=== PATIENT | female | born 1975 | race Hispanic/Latino ===

== ENCOUNTER 2024-08-24 20:23 | Emergency (ER) | payer BC, SELFPAY ==
--- NOTE | ~2024-08-24 | XR_ITS ---
CHEST RADIOGRAPH, PA AND LATERAL CLINICAL HISTORY: cough WITH FEVER . COMPARISON: None available TECHNIQUE: PA and lateral views of the chest. FINDINGS Right internal jugular central venous power port catheter identified with its tip projecting over the cavoatrial junction. The remainder of the cardiomediastinal silhouette is otherwise unremarkable. The lungs are clear. Visualized osseous structures and soft tissues are unremarkable. IMPRESSION: No focal infiltrate or effusion. Reviewed, dictated and finalized at location A. ASSISTANT
--- OUTSIDE RECORDS SUMMARY | 2024-08-24 20:25 | XMS_ITS | Clinical Summary ---
Author Organization [facility] Address [address] [place] [address] Care Team Providers Care Steamtable Worker Name Role Phone Daljit Wiley MD Primary Care Provider [phone] Allergies No known active allergies Medications melatonin 5 mg tablet Take 2 tablets (10 mg total) by mouth nightly as needed 2 tablets Active dexAMETHasone (DECADRON) 4 mg tabletIndications :Malignant 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 in female, estrogen receptor negative (HCC),Prevention of chemotherapy-akil rashi neutropenia Take 2 tablets (8 mg) by mouth twice a day the day before and the day after DOCEtaxel. Then take 2 tablets (8 mg) by mouth once daily on days 3 and 4. 12 tablet 5 06/02/20 24 Active prochlorperazine (Compazine) 10 mg tabletIndications :Malignant 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 in female, estrogen receptor negative (HCC),Prevention of chemotherapy-akil rashi neutropenia Take 1 tablet (10 mg total) by mouth every 6 (six) hours as needed for nausea or vomiting Use first for nausea 60 tablet 3 06/02/20 24 Active ondansetron (ZOFRAN) 8 mg tabletIndications :Malignant 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 in female, estrogen receptor negative (HCC),Prevention of chemotherapy-akil rashi neutropenia Take 1 tablet (8 mg total) by mouth every 8 (eight) hours as needed for nausea or vomiting Use if prochlorperazine does not stop nausea 24 tablet 3 06/02/20 24 Active loratadine (CLARITIN) 10 mg tabletIndications :Bone pain due to G-CSF Take 1 tablet daily starting day of treatment, and for 7-10 days after treatment 30 tablet 1 06/02/20 24 Active lidocaine-priloca ine creamIndications: Encounter for care related to vascular access port,Encounter for antineoplastic chemotherapy Apply topically every 21 days Apply to port site and cover 1 hour prior to appointment for chemotherapy 30 g 2 06/02/20 24 2024 Active loperamide (IMODIUM) 2 mg capsuleIndication s:Chemotherapy induced diarrhea Take 2 capsules (4mg) by mouth with first onset diarrhea, 1 capsule (2mg) after each loose stool thereafter. Maximum of 8 capsules (16mg) per 24 hours. 60 capsule 1 06/02/20 Active cephalexin (KEFLEX) 250 mg capsule Take 1 capsule (250 mg total) by mouth 2 (two) times a day 10 capsule 06/08/20 24 Active acetaminophen (TYLENOL) 500 mg tablet Take 2 tablets (1,000 mg total) by mouth every 6 (six) hours as needed for pain 50 tablet 1 06/08/20 24 Active oxyCODONE (ROXICODONE) 5 mg immediate release tabletIndications :Pain Take 1 tablet (5 mg total) by mouth every 4 (four) hours as needed for pain 5 tablet 06/08/20 Active senna (SENOKOT) 8.6 mg tablet Take 1 tablet by mouth daily 30 tablet 06/08/20 24 2024 Active Active Problems Problem Noted Date Diagnosed Date Malignant neoplasm of upper- outer quadrant of right breast in female, estrogen receptor negative 05/10/2024 Cancer Staging:Clinical:Stage Unknown(cT2, cNX, cM0, G3, ER-, TX-, HER2+) - Unsigned Prevention of chemotherapy-induced neutropenia 0 09/22/2019 Fibrocystic breast changes of both breasts 08/18 History of abnormal mammogram 06/29/2018 Encounters Date Type Department Care Team Description 08/12/2024 12:00 PM STATISTICAL PROGRAMMER Infusion [facility] - Infusion [address] [facility] Floor 5 [place] [address] Prevention of chemotherapy-induced neutropenia (Primary Dx); Malignant 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 in female, estrogen receptor negative (HCC) 08/12/2024 11:00 AM STATISTICAL PROGRAMMER Office Visit [facility] [address] [place] [address] 8 [place] [address] Adama Adkins MD Prevention of chemotherapy-induced neutropenia (Primary Dx); Malignant 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 in female, estrogen receptor negative (HCC) 08/12/2024 10:00 AM STATISTICAL PROGRAMMER Clinical Support [facility] - Lab Collection [address] [place] [address] Floor 5 [place] [address] Malignant 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 in female, estrogen receptor negative (HCC); Prevention of chemotherapy-induced neutropenia 07/22/2024 1:30 PM STATISTICAL PROGRAMMER Infusion [facility] - Infusion [address] [place] [address] Floor 5 [place] [address] Prevention of chemotherapy-induced neutropenia (Primary Dx); Malignant 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 in female, estrogen receptor negative (HCC) 07/22/2024 11:45 AM STATISTICAL PROGRAMMER Office Visit [facility] [address] [place] [phone] Adama Adkins MD Encounter for monitoring cardiotoxic drug therapy (Primary Dx); Malignant 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 in female, estrogen receptor negative (HCC); Prevention of chemotherapy-induced neutropenia 07/22/2024 10:45 AM STATISTICAL PROGRAMMER Clinical Support [facility] - Lab Collection [address] [place] [address] 5 [place] [address] Malignant 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 in female, estrogen receptor negative (HCC); Prevention of chemotherapy-induced neutropenia 07/01/2024 10:30 AM STATISTICAL PROGRAMMER Infusion [facility] - Infusion [address] [place] [address] Floor 6 [place] [address] Prevention of chemotherapy-induced neutropenia (Primary Dx); Malignant 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 in female, estrogen receptor negative (HCC) 07/01/2024 9:30 AM STATISTICAL PROGRAMMER Office Visit [facility] [address] [place] [address] Floor 8 [place] [address] Deni Licona PA Prevention of chemotherapy-induced neutropenia (Primary Dx); Malignant 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 in female, estrogen receptor negative (HCC) 07/01/2024 8:45 AM STATISTICAL PROGRAMMER Clinical Support [facility] - Lab Collection [facility] Floor 6 [place] [address] Malignant 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 in female, estrogen receptor negative (HCC); Prevention of chemotherapy-induced neutropenia 06/22/2024 8:00 AM STATISTICAL PROGRAMMER Office Visit [facility] [address] [place] [address] 6th [place] [address] [place] [address] Connie Hayes MD Malignant 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 in female, estrogen receptor negative (HCC) 06/15/2024 Telephone [facility] [address] [place] [address] Floor 8 [place] [phone] Allyssa Neumann RN 06/10/2024 10:00 AM STATISTICAL PROGRAMMER Infusion [facility] - Infusion [address] [place] [address] Floor 6 [place] [address] Prevention of chemotherapy-induced neutropenia (Primary Dx); Malignant 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 in female, estrogen receptor negative (HCC) 06/10/2024 8:45 AM STATISTICAL PROGRAMMER Office Visit [facility] [address] [place] [address] Floor 8 [place] [address] Adama Adkins MD Malignant 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 in female, estrogen receptor negative (HCC) (Primary Dx); Prevention of chemotherapy-induced neutropenia 06/10/2024 8:15 AM STATISTICAL PROGRAMMER Clinical Support [facility] - Lab Collection [facility] Floor 5 [place] [address] Malignant 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 in female, estrogen receptor negative (HCC) 06/10/2024 7:45 AM STATISTICAL PROGRAMMER Clinical Support [facility] [address] [place] [address] Floor 5 [place] [address] Malignant 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 in female, estrogen receptor negative (HCC); Prevention of chemotherapy-induced neutropenia 06/10/2024 Orders Only [facility] [address] [place] [address] Floor 8 [place] [address] Adama Adkins MD Malignant 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 in female, estrogen receptor negative (HCC) (Primary Dx) 06/08/2024 9:07 AM STATISTICAL PROGRAMMER - 06/08/2024 11:59 PM STATISTICAL PROGRAMMER Hospital Encounter [facility] ([facility]) [address] [place] [address] Malignant 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 in female, estrogen receptor negative (HCC) Discharge Disposition: Discharge to home or self care 06/08/2024 7:30 AM STATISTICAL PROGRAMMER - 06/08/2024 8:45 AM STATISTICAL PROGRAMMER Surgery [facility] ([facility]) [address] [place] [phone] AftKendal MD PhD INSERTION PORT A CATH 06/08/2024 7:30 AM STATISTICAL PROGRAMMER Anesthesia Event [facility] ([facility]) [address] [place] [address] Jorge Thompson MD Dolnick, Karen Leigh, NP 06/08/2024 5:32 AM STATISTICAL PROGRAMMER - 06/08/2024 9:57 AM STATISTICAL PROGRAMMER Hospital Encounter [facility] ([facility]) [address] [place] [address] Chatot, Kendal Martinez MD PhD Malignant 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 in female, estrogen receptor negative (HCC) (Primary Dx) Discharge Disposition: Discharge to home or self care 06/04/2024 12:30 PM STATISTICAL PROGRAMMER Lab [facility] ([facility]) [address] [place] [phone] Malignant 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 in female, estrogen receptor negative (HCC); Prevention of chemotherapy-induced neutropenia 06/04/2024 10:56 AM STATISTICAL PROGRAMMER - 06/04/2024 11:59 PM STATISTICAL PROGRAMMER Hospital Encounter [facility] ([facility]) [address] [place] [address] Malignant 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 in female, estrogen receptor negative (HCC) Discharge Disposition: Discharge to home or self care 06/04/2024 10:56 AM STATISTICAL PROGRAMMER - 06/04/2024 11:59 PM STATISTICAL PROGRAMMER Hospital Encounter [facility] ([facility]) [address] [place] [address] Discharge Disposition: Discharge to home or self care 06/04/2024 10:56 AM STATISTICAL PROGRAMMER - 06/04/2024 11:59 PM STATISTICAL PROGRAMMER Hospital Encounter [facility] ([facility]) [address] [place] [address] Malignant 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 in female, estrogen receptor negative (HCC) Discharge Disposition: Discharge to home or self care 06/02/2024 Orders Only [facility] [address] [place] [phone] Adama Adkins MD Malignant 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 in female, estrogen receptor negative (HCC) (Primary Dx); Prevention of chemotherapy-induced neutropenia; Bone pain due to G-CSF; Chemotherapy induced diarrhea; Encounter for care related to vascular access port; Encounter for antineoplastic chemotherapy 05/28/2024 Orders Only [facility] [address] [place] [address] Adama Adkins MD 05/27/2024 Telephone [facility] [address] [place] [address] Steffanie Rodriguez RN GI Preprocedure 05/25/2024 Orders Only [facility] [address] [place] [phone] Kendal Malhotra MD PhD Malignant 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 in female, estrogen receptor negative (HCC) (Primary Dx) 05/24/2024 Telephone [facility] [address] [phone] Allyssa Neumann, EBLLE 05/24/2024 Telephone [facility] [address] [place] [phone] Kendal Malhotra MD PhD from Last 3 Months Immunizations Name Administration Dates Next Due Tdap 10/12/2017 Surgical History Surgery Date Site/Laterality Comments BREAST BIOPSY 05/03/2024 Right HYSTERECTOMY 07/21/2012 - 07/20/2013 BREAST BIOPSY 07/21/2015 - 07/20/2016 Right x2, lesion removal Family History Medical History Relation Name Comments Pancreatic cancer Father Pancreatitis Father Family history of pancreatitis - (Added by TW Conv) Lung cancer Father's Sister Brain cancer Maternal Grandmother Breast cancer Maternal Grandmother Breast cancer Mother Breast cancer Other cousin Lung cancer Paternal Grandmother Anesthesia problems Neg Hx Relation Name Status Comments Father Father's Sister Maternal Grandmother Mother Other cousin Paternal Grandmother Social History Tobacco Use Types Packs/Day Years Used Date Smoking Tobacco: Never Passive Smoke Exposure: Past Smokeless Tobacco: Never Tobacco Cessation:Counseling Given: Not Answered Alcohol Use Standard Drinks/Week Comments Yes 0 (1 standard drink = 0.6 oz pur e alcohol) socially AUDIT-C Answer Date Recorded Q1: How often do you have a drink containing alc ohol? 2-4 times a month 06/08/2024 Q2: How many drinks containi ng alcohol do you have on a typical day when you are drinking? 1 or 2 06/08/2024 Q3: How often do you have si x or more drinks on one occasion? Never 06/08/2024 Personal Safety Answer Date Recorded Have you ever been in or are you currently in a harmful physical or emotional relationship or is someone making you feel afraid or unsafe? Denies 06/08/2024 Comments No Sex and Gender Information Value Date Recorded Sex Assigned at Not on file Legal Sex Female 5:54 AM STATISTICAL PROGRAMMER Gender Identity Not on file Sexual Orientation Not on file Obstetrics History Last Filed Vital Signs Vital Sign Reading Time Taken Comments Blood Pressure 119/82 08/12/2024 11:05 AM STATISTICAL PROGRAMMER Pulse 74 08/12/2024 11:05 AM STATISTICAL PROGRAMMER Temperature 36.2 ??C (97.2 ??F) 08/12/2024 11:[address] Respiratory Rate 18 08/12/2024 11:05 AM STATISTICAL PROGRAMMER Oxygen Saturation 97% 08/12/2024 11:05 AM STATISTICAL PROGRAMMER Inhaled Oxygen Concentration - - Weight 124.3 kg (274 lb) 08/12/2024 11:05 AM STATISTICAL PROGRAMMER Height 177.8 cm (5' 10 ) 08/12/2024 11:05 AM STATISTICAL PROGRAMMER Body Mass Index 39.31 08/12/2024 11:05 AM STATISTICAL PROGRAMMER Plan of Treatment Health Maintenance Due Date Last Done Comments Colon Cancer Screening-Colonoscopy 1974 Depression Screening 1974 Hepatitis C Screening 1974 Hepatitis B Screening 1992 Regular Well Visit/Exam 18-64 1992 Influenza Vaccine (#1) 2024 Breast Cancer Screening-Mammogram 04/22/2025 04/22/2024, 03/07/2023, 09/21/2019, Additional history exists DTaP/Tdap/Td Vaccine (2 - Td or Tdap) 10/13/2027 10/12/2017 Pneumococcal vaccine <65 Aged Out No longer eligible based on patient's age to complete this topic Medical Devices Implanted Type Area Office Machine Inspector Device Identifier Shelf Expiration Date Model / Serial / Lot [employer] Eviva 13cm Identifier Biopsy Site Yikgv-Lecto-[id number] - [id number] Implanted:Qty: 1 on 05/03/2024 at [facility] [employer] [id number] 01/12/2025 [facility] / / [id number] Treat[employer] Peripheral Vascular Powerport Clearvue Airguard 8fr 1 Lumen Lightweight Intermediate Latex Free [id number] - [id number] - [id number] Implanted:Qty: 1 on 06/08/2024 by Aft, Kendal Martinez MD PhD at [facility] [employer] [id number] 06/19/2025 [id number] / [id number] / [id number] Procedures Procedure Name Priority Date/Time Associated Diagnosis Comments EGFR STAT 08/12/2024 10:35 AM STATISTICAL PROGRAMMER Malignant 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 in female, estrogen receptor negative (HCC) Prevention of chemotherapy-induc ed neutropenia DIFFERENTIAL AUTO STAT 08/12/2024 10: 35 AM STATISTICAL PROGRAMMER Malignant 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 in female, estrogen receptor negative (HCC) Prevention of chemotherapy-induc ed neutropenia CBC WITH AUTO DIFFERENTIAL STAT 08/12/2024 10:35 AM STATISTICAL PROGRAMMER Malignant 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 in female, estrogen receptor negative (HCC) Prevention of chemotherapy-induc ed neutropenia COMPREHENSIVE METABOLIC PANEL STAT 08/12/2024 10:35 AM STATISTICAL PROGRAMMER Malignant 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 in female, estrogen receptor negative (HCC) Prevention of chemotherapy-induc ed neutropenia EGFR STAT 07/22/2024 11:11 AM STATISTICAL PROGRAMMER Malignant 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 in female, estrogen receptor negative (HCC) Prevention of chemotherapy-induc ed neutropenia DIFFERENTIAL AUTO STAT 07/22/2024 11: 11 AM STATISTICAL PROGRAMMER Malignant 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 in female, estrogen receptor negative (HCC) Prevention of chemotherapy-induc ed neutropenia CBC WITH AUTO DIFFERENTIAL STAT 07/22/2024 11:11 AM STATISTICAL PROGRAMMER Malignant 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 in female, estrogen receptor negative (HCC) Prevention of chemotherapy-induc ed neutropenia COMPREHENSIVE METABOLIC PANEL STAT 07/22/2024 11:11 AM STATISTICAL PROGRAMMER Malignant 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 in female, estrogen receptor negative (HCC) Prevention of chemotherapy-induc ed neutropenia EGFR STAT 07/01/2024 9:10 AM STATISTICAL PROGRAMMER Malignant 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 in female, estrogen receptor negative (HCC) Prevention of chemotherapy-induc ed neutropenia DIFFERENTIAL AUTO STAT 07/01/2024 9:1 0 AM STATISTICAL PROGRAMMER Malignant 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 in female, estrogen receptor negative (HCC) Prevention of chemotherapy-induc ed neutropenia CBC WITH AUTO DIFFERENTIAL STAT 07/01/2024 9:10 AM STATISTICAL PROGRAMMER Malignant 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 in female, estrogen receptor negative (HCC) Prevention of chemotherapy-induc ed neutropenia COMPREHENSIVE METABOLIC PANEL STAT 07/01/2024 9:10 AM STATISTICAL PROGRAMMER Malignant 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 in female, estrogen receptor negative (HCC) Prevention of chemotherapy-induc ed neutropenia EGFR Routine 06/10/2024 8:33 AM STATISTICAL PROGRAMMER Malignant 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 in female, estrogen receptor negative (HCC) DIFFERENTIAL AUTO Routine 06/10/2024 8:3 3 AM STATISTICAL PROGRAMMER Malignant 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 in female, estrogen receptor negative (HCC) CBC WITH AUTO DIFFERENTIAL Routine 06/10/2024 8:33 AM STATISTICAL PROGRAMMER Malignant 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 in female, estrogen receptor negative (HCC) COMPREHENSIVE METABOLIC PANEL Routine 06/10/2024 8:33 AM STATISTICAL PROGRAMMER Malignant 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 in female, estrogen receptor negative (HCC) XR CHEST 1 VIEW Schedule Routine, Read Routine (OP Routine) 06/08/2024 9:28 AM STATISTICAL PROGRAMMER Malignant 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 in female, estrogen receptor negative (HCC) FL FLUOROSCOPY < 1 HOUR IP Routine 06/08/2024 8:40 AM STATISTICAL PROGRAMMER PERIPHERAL LINE Routine 06/08/2024 7:54 AM STATISTICAL PROGRAMMER ANESTHESIA INTUBATION Routine 06/08/2024 7:53 AM STATISTICAL PROGRAMMER INSERTION PORT A CATH 06/08/2024 7:30 AM STATISTICAL PROGRAMMER Malignant 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 in female, estrogen receptor negative (HCC) NM BONE IMAGING WHOLE BODY Schedule Routine, Read Routine (OP Routine) 06/04/2024 2:21 PM STATISTICAL PROGRAMMER Malignant 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 in female, estrogen receptor negative (HCC) CT CHEST ABDOMEN PELVIS W CONTRAST Schedule Routine, Read Routine (OP Routine) 06/04/2024 12:26 PM STATISTICAL PROGRAMMER Malignant 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 in female, estrogen receptor negative (HCC) EGFR STAT 06/04/2024 11:03 AM STATISTICAL PROGRAMMER Malignant 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 in female, estrogen receptor negative (HCC) Prevention of chemotherapy-induc ed neutropenia DIFFERENTIAL AUTO STAT 06/04/2024 11: 03 AM STATISTICAL PROGRAMMER Malignant 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 in female, estrogen receptor negative (HCC) Prevention of chemotherapy-induc ed neutropenia CBC WITH AUTO DIFFERENTIAL STAT 06/04/2024 11:03 AM STATISTICAL PROGRAMMER Malignant 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 in female, estrogen receptor negative (HCC) Prevention of chemotherapy-induc ed neutropenia COMPREHENSIVE METABOLIC PANEL STAT 06/04/2024 11:03 AM STATISTICAL PROGRAMMER Malignant 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 in female, estrogen receptor negative (HCC) Prevention of chemotherapy-induc ed neutropenia SCREENING MAMMOGRAM BILATERAL W DANNIE Schedule Routine, Read Routine (OP Routine) 04/22/2024 3:57 PM CDT History of abnormal mammogram Family history of breast cancer Increased risk of breast cancer Dense breast tissue from Last 3 Months or Most Recently Relevant to Health Maintenance Results * eGFR (08/12/2024 10:35 AM STATISTICAL PROGRAMMER) eGFR >90 >=60 mL/min/1. 73 m2 Comment: Interpretive Data Reference Interval Normal ?>/= 90 mL/min/1.73m2 Mildly decreased* ? 60 - 89 mL/min/1.73m2 Mildly to moderately decreased ?45 - 59 mL/min/1.73m2 Moderately to severely decreased ??30 - 44 mL/min/1.73m2 Severely decreased ?15 - 29 mL/min/1.73m2 Kidney Failure ?< 15 ??mL/min/1.73m2 *Relative to young adult level Estimated glomerular filtration rate is determined by the 2020 CKD-EPI equation recommended by the National Kidney Foundation (A Unifying Approach to GFR Estimation: Recommendations of the NKF-ASK Task Force on Reassessing the Inclusion of Race in Diagnosing Kidney Disease, JASN 202). The CKD-EPI equation should not be used for patients with unstable renal function and has not been validated in children and those over 70. Current interpretive data was last reviewed 2021. Blood 08/12/2024 10:3 5 AM STATISTICAL PROGRAMMER 08/12/2024 10:49 AM STATISTICAL PROGRAMMER Adama Adkins MD LAB BLOOD ORDERABLES Final Resul t [facility] Department [place] [address] * (ABNORMAL) Differential, auto (08/12/2024 10:35 AM STATISTICAL PROGRAMMER) Neutrophil abs 12.6(H) 1.5 - 6.5 K/cumm Comment:Testing performed by : [facility], [address] [place] [phone] Lymphocyte abs 1.7 0.8 - 3.3 K/cumm [facility] Comment:Testing performed by : [facility], [address] [place] [phone] Monocyte abs 1.6(H) 0.2 - 0.8 K/cumm [facility] Comment:Testing performed by : [facility], [address] [place] [phone] Eosinophil abs 0.0 0.0 - 0.5 K/cumm [facility] Comment:Testing performed by : [facility], [address] [place] [phone] Basophil abs 0.0 0.0 - 0.1 K/cumm [facility] Comment:Testing performed by : [facility], [address] [place] [phone] Neutrophil pct 79.2 % [facility] Comment: Interpretive Data Percent cell count reference ranges are not reported, since discordance with absolute values may lead to misinterpretation of CBC data. Current Interpretive Data was last revised on 2017. Testing performed by: [facility], [address] [place] [phone] Lymphocyte pct 10.5 % [facility] Comment: Interpretive Data Percent cell count reference ranges are not reported, since discordance with absolute values may lead to misinterpretation of CBC data. Current Interpretive Data was last revised on 2017. Testing performed by: [facility], [address] [place] [phone] Monocyte pct 10.2 % [facility] Comment: Interpretive Data Percent cell count reference ranges are not reported, since discordance with absolute values may lead to misinterpretation of CBC data. Current Interpretive Data was last revised on 2017. Testing performed by: [facility], [address] [place] [phone] Eosinophil pct 0.0 % CERANGELA OLEA Comment: Interpretive Data Percent cell count reference ranges are not reported, since discordance with absolute values may lead to misinterpretation of CBC data. Current Interpretive Data was last revised on 2017. Testing performed by: [facility], [address] [place] [phone] Basophil pct 0.1 % CERANGELA OLEA Comment: Interpretive Data Percent cell count reference ranges are not reported, since discordance with absolute values may lead to misinterpretation of CBC data. Current Interpretive Data was last revised on 2017. Testing performed by: [facility], [address] [place] [phone] Blood 08/12/2024 10:3 5 AM STATISTICAL PROGRAMMER 08/12/2024 10:50 AM STATISTICAL PROGRAMMER us Adamakian Adkins MD LAB BLOOD ORDERABLES Final Resul t AL[facility] ROSA DELACRUZ [facility] Department [place] [address] * (ABNORMAL) CBC with auto differential (08/12/2024 10:35 AM STATISTICAL PROGRAMMER) WBC 15.9(H) 3.8 - 9.9 K/cumm Comment:Testing performed by : [facility], [address] [place] [address] Hgb 11.1(L) 11.9 - 15.5 g/dL CERNER BJ Comment:Testing performed by : [facility], [address] [place] [address] Hct 32.8(L) 35.6 - 45.5 % CERNER BJ Comment:Testing performed by : [facility], [address] [place] [address] Plt 394 150 - 400 K/cumm CERNER BJ Comment:Testing performed by : [facility], [address] [place] [address] MPV 7.3 6.8 - 10.4 fL CERNER BJ Comment:Testing performed by : [facility], [address] [place] [address] RBC 3.35(L) 3.90 - 5.20 M/cumm CERNER BJ Comment:Testing performed by : [facility], [address] [place] [address] MCV 98.0(H) 81.3 - 96.4 fL CERNER BJ Comment:Testing performed by : [facility], [address] [place] [address] MCH 33.0 27.1 - 33.3 pg CERNER BJ Comment:Testing performed by : [facility], [address] [place] [address] MCHC 33.7 32.3 - 35.7 g/dL CERNER BJ Comment:Testing performed by : [facility], [address] [place] [address] RDW CV 18.1(H) 11.1 - 14.9 % CERNER BJ Comment:Testing performed by : [facility], [address] [place] [address] NRBC abs 0.00 0.00 - 0.01 K/cumm CERNER BJ Comment:Testing performed by : [facility], [address] [place] [address] Blood 08/12/2024 10:3 5 AM STATISTICAL PROGRAMMER 08/12/2024 10:50 AM STATISTICAL PROGRAMMER us Adama Adkins MD LAB BLOOD ORDERABLES Final Resul t [facility] Department [place] [address] * (ABNORMAL) Comprehensive metabolic panel (08/12/2024 10:35 AM STATISTICAL PROGRAMMER) Pathologist [facility] Sodium 141 135 - 145 mmol/L Potassium, pl 4.1 3.3 - 4.9 mmol/L [facility] Chloride 106 97 - 110 mmol/L [facility] CO2 27 22 - 32 mmol/L [facility] Anion gap 8 2 - 15 mmol/L [facility] BUN 13 6 - 25 mg/dL [facility] Creatinine 0.67 0.60 - 1.10 mg/dL [facility] Glucose 108 70 - 199 mg/dL [facility] Comment: Interpretive Data Fasting glucose >/= 126 mg/dl is diagnostic for diabetes. ?? Fasting is defined as no caloric intake for at least 8 hours. Fasting glucose between 100 mg/dl to 125 mg/dl is diagnostic of prediabetes. In a patient with classic symptoms of hyperglycemia or hyperglycemic crisis, a random glucose >/= 200 mg/dl is diagnostic for diabetes. In the absence of unequivocal hyperglycemia, results should be confirmed by repeat testing. The classification and Diagnosis of Diabetes Diabetes Care 2021; 46: S19-S40. Current interpretive data was last revised 2022. Calcium 9.5 8.5 - 10.3 mg/dL [facility] Bilirubin, total <0.2 0.1 - 1.2 mg/dL [facility] Protein, pl 7.2 6.5 - 8.5 g/dL [facility] Albumin 4.0 3.5 - 5.0 g/dL [facility] Alk phos 101 40 - 130 Units/L [facility] ALT 53(H) 7 - 45 Units/L [facility] AST 37 10 - 45 Units/L [facility] Blood 08/12/2024 10:3 5 AM STATISTICAL PROGRAMMER 08/12/2024 10:49 AM STATISTICAL PROGRAMMER us Adama Adkins MD LAB BLOOD ORDERABLES Final Resul t Performing Organization Address [facility] de Phone Number ALMA ROSA OLEAMid [facility] Department [place] [address] * eGFR (07/22/2024 11:11 AM STATISTICAL PROGRAMMER) eGFR >90 >=60 mL/min/1. 73 m2 Comment: Interpretive Data Reference Interval Normal ?>/= 90 mL/min/1.73m2 Mildly decreased* ? 60 - 89 mL/min/1.73m2 Mildly to moderately decreased ?45 - 59 mL/min/1.73m2 Moderately to severely decreased ??30 - 44 mL/min/1.73m2 Severely decreased ?15 - 29 mL/min/1.73m2 Kidney Failure ?< 15 ??mL/min/1.73m2 *Relative to young adult level Estimated glomerular filtration rate is determined by the 2020 CKD-EPI equation recommended by the National Kidney Foundation (A Unifying Approach to GFR Estimation: Recommendations of the NKF-ASK Task Force on Reassessing the Inclusion of Race in Diagnosing Kidney Disease, JASN 2020). The CKD-EPI equation should not be used for patients with unstable renal function and has not been validated in children and those over 70. Current interpretive data was last reviewed 2021. Blood 07/22/2024 11:1 1 AM STATISTICAL PROGRAMMER 07/22/2024 11:14 AM STATISTICAL PROGRAMMER us Deni RADFORD LAB BLOOD ORDERABLES Final Result Performing Organization Address [facility] de Phone Number ALMA ROSA OLEAMid [facility] Department [place] [address] * (ABNORMAL) Differential, auto (07/22/2024 11:11 AM STATISTICAL PROGRAMMER) Neutrophil abs 12.9(H) 1.5 - 6.5 K/cumm Comment:Testing performed by : [facility], [address] [place] [phone] Lymphocyte abs 1.0 0.8 - 3.3 K/cumm [facility]ER [facility] Comment:Testing performed by : [facility], [address] [place], [place] [phone] Monocyte abs 0.7 0.2 - 0.8 K/cumm [facility]ER [facility] Comment:Testing performed by : [facility], [address] [place], [place] [phone] Eosinophil abs 0.0 0.0 - 0.5 K/cumm [facility] Comment:Testing performed by : [facility], [address] [place] [phone] Basophil abs 0.0 0.0 - 0.1 K/cumm [facility] Comment:Testing performed by : [facility], [address] [place] [phone] Neutrophil pct 88.1 % [facility]ER [facility] Comment: Interpretive Data Percent cell count reference ranges are not reported, since discordance with absolute values may lead to misinterpretation of CBC data. Current Interpretive Data was last revised on 2017. Testing performed by: [facility], [address] [place] [phone] Lymphocyte pct 6.7 % [facility] Comment: Interpretive Data Percent cell count reference ranges are not reported, since discordance with absolute values may lead to misinterpretation of CBC data. Current Interpretive Data was last revised on 2017. Testing performed by: [facility], [address] [place] [phone] Monocyte pct 4.9 % [facility] Comment: Interpretive Data Percent cell count reference ranges are not reported, since discordance with absolute values may lead to misinterpretation of CBC data. Current Interpretive Data was last revised on 2017. Testing performed by: [facility], [address] [place] [phone] Eosinophil pct 0.0 % ALMA ROSA OLEA Comment: Interpretive Data Percent cell count reference ranges are not reported, since discordance with absolute values may lead to misinterpretation of CBC data. Current Interpretive Data was last revised on 2017. Testing performed by: [facility], [address] [place], [place] [phone] Basophil pct 0.3 % ALMA ROSA OLEA Comment: Interpretive Data Percent cell count reference ranges are not reported, since discordance with absolute values may lead to misinterpretation of CBC data. Current Interpretive Data was last revised on 2017. Testing performed by: [facility], [address] [place], [place] [phone] Blood 07/22/2024 11:1 1 AM STATISTICAL PROGRAMMER 07/22/2024 11:12 AM STATISTICAL PROGRAMMER us Deni RADFORD LAB BLOOD ORDERABLES Final Result [facility] Department [place] [address] * (ABNORMAL) CBC with auto differential (07/22/2024 11:11 AM STATISTICAL PROGRAMMER) WBC 14.6(H) 3.8 - 9.9 K/cumm Comment:Testing performed by : [facility], [address] [place] [phone] Hgb 12.1 11.9 - 15.5 g/dL ALMA ROSA OLEA Comment:Testing performed by : [facility], [address] [place] [address] Hct 35.8 35.6 - 45.5 % ALMA ROSA OLEA Comment:Testing performed by : [facility], [address] [place] [address] Plt 413(H) 150 - 400 K/cumm ALMA ROSA OLEA Comment:Testing performed by : [facility], [address] [place] [address] MPV 7.2 6.8 - 10.4 fL ALMA ROSA OLEA Comment:Testing performed by : [facility], [address] [place] [address] RBC 3.76(L) 3.90 - 5.20 M/cumm CERANGELA OLEA Comment:Testing performed by : [facility], [address] [place], [place] [phone] MCV 95.3 81.3 - 96.4 fL ALMA ROSA OLEA Comment:Testing performed by : [facility], [address] [place] [address] MCH 32.3 27.1 - 33.3 pg ALMA ROSA OLEA Comment:Testing performed by : [facility], [address] [place], [place] [phone] MCHC 33.9 32.3 - 35.7 g/dL ALMA ROSA OLEA Comment:Testing performed by : [facility], [address] [place] [address] RDW CV 15.1(H) 11.1 - 14.9 % [facility] Comment:Testing performed by : [facility], [address] [place] [address] NRBC abs 0.00 0.00 - 0.01 K/cumm [facility] ROSA [facility] Comment:Testing performed by : [facility], [address] [place] [address] Blood 07/22/2024 11:1 1 AM STATISTICAL PROGRAMMER 07/22/2024 11:12 AM STATISTICAL PROGRAMMER us Deni RADFORD LAB BLOOD ORDERABLES Final Result AL[facility] ROSA OLEA [facility] Department [place] [address] * (ABNORMAL) Comprehensive metabolic panel (07/22/2024 11:11 AM STATISTICAL PROGRAMMER) Sodium 138 135 - 145 mmol/L Potassium, pl 4.0 3.3 - 4.9 mmol/L [facility] Chloride 104 97 - 110 mmol/L [facility] CO2 27 22 - 32 mmol/L [facility] Anion gap 7 2 - 15 mmol/L [facility] BUN 10 6 - 25 mg/dL [facility] Creatinine 0.64 0.60 - 1.10 mg/dL [facility] Glucose 138 70 - 199 mg/dL [facility] Comment: Interpretive Data Fasting glucose >/= 126 mg/dl is diagnostic for diabetes. ?? Fasting is defined as no caloric intake for at least 8 hours. Fasting glucose between 100 mg/dl to 125 mg/dl is diagnostic of prediabetes. In a patient with classic symptoms of hyperglycemia or hyperglycemic crisis, a random glucose >/= 200 mg/dl is diagnostic for diabetes. In the absence of unequivocal hyperglycemia, results should be confirmed by repeat testing. The classification and Diagnosis of Diabetes Diabetes Care 2021; 46: S19-S40. Current interpretive data was last revised 2022. Calcium 9.6 8.5 - 10.3 mg/dL [facility] Bilirubin, total 0.2 0.1 - 1.2 mg/dL [facility] Protein, pl 7.3 6.5 - 8.5 g/dL [facility] Albumin 4.0 3.5 - 5.0 g/dL [facility] Alk phos 100 40 - 130 Units/L [facility] ALT 60(H) 7 - 45 Units/L [facility] AST 31 10 - 45 Units/L [facility] Blood 07/22/2024 11:1 1 AM STATISTICAL PROGRAMMER 07/22/2024 11:14 AM STATISTICAL PROGRAMMER us Deni RADFORD LAB BLOOD ORDERABLES Final Result [facility] Department [place] [address] * eGFR (07/01/2024 9:10 AM STATISTICAL PROGRAMMER) eGFR >90 >=60 mL/min/1. 73 m2 Comment: Interpretive Data Reference Interval Normal ?>/= 90 mL/min/1.73m2 Mildly decreased* ? 60 - 89 mL/min/1.73m2 Mildly to moderately decreased ?45 - 59 mL/min/1.73m2 Moderately to severely decreased ??30 - 44 mL/min/1.73m2 Severely decreased ?15 - 29 mL/min/1.73m2 Kidney Failure ?< 15 ??mL/min/1.73m2 *Relative to young adult level Estimated glomerular filtration rate is determined by the 2020 CKD-EPI equation recommended by the National Kidney Foundation (A Unifying Approach to GFR Estimation: Recommendations of the NKF-ASK Task Force on Reassessing the Inclusion of Race in Diagnosing Kidney Disease, JASN 2020). The CKD-EPI equation should not be used for patients with unstable renal function and has not been validated in children and those over 70. Current interpretive data was last reviewed 2021. Blood 07/01/2024 9:10 AM STATISTICAL PROGRAMMER 07/01/2024 9:30 AM STATISTICAL PROGRAMMER us Adama Adkins MD LAB BLOOD ORDERABLES Final Resul t [facility] Department [place] [address] * (ABNORMAL) Differential, auto (07/01/2024 9:10 AM STATISTICAL PROGRAMMER) Neutrophil abs 13.0(H) 1.5 - 6.5 K/cumm Comment:Testing performed by : [facility], [facility] [place] [phone] Lymphocyte abs 1.5 0.8 - 3.3 K/cumm ALMA ROSA DELACRUZ Comment:Testing performed by : [facility], [facility] [place] [address] Monocyte abs 1.2(H) 0.2 - 0.8 K/cumm [facility]ER [facility] Comment:Testing performed by : [facility], [address] [place] [phone] Eosinophil abs 0.0 0.0 - 0.5 K/cumm [facility]ER [facility] Comment:Testing performed by : [facility], [address] [place] [phone] Basophil abs 0.0 0.0 - 0.1 K/cumm [facility]ER [facility] Comment:Testing performed by : [facility], [address] [place] [phone] Neutrophil pct 82.8 % [facility] Comment: Interpretive Data Percent cell count reference ranges are not reported, since discordance with absolute values may lead to misinterpretation of CBC data. Current Interpretive Data was last revised on 2017. Testing performed by: [facility], [address] [place] [phone] Lymphocyte pct 9.6 % [facility]ER [facility] Comment: Interpretive Data Percent cell count reference ranges are not reported, since discordance with absolute values may lead to misinterpretation of CBC data. Current Interpretive Data was last revised on 2017. Testing performed by: [facility], [address] [place] [phone] Monocyte pct 7.4 % [facility]ER [facility] Comment: Interpretive Data Percent cell count reference ranges are not reported, since discordance with absolute values may lead to misinterpretation of CBC data. Current Interpretive Data was last revised on 2017. Testing performed by: [facility], [address] [place] [phone] Eosinophil pct 0.0 % [facility] Comment: Interpretive Data Percent cell count reference ranges are not reported, since discordance with absolute values may lead to misinterpretation of CBC data. Current Interpretive Data was last revised on 2017. Testing performed by: [facility], [address] [place] [phone] Basophil pct 0.2 % [facility] Comment: Interpretive Data Percent cell count reference ranges are not reported, since discordance with absolute values may lead to misinterpretation of CBC data. Current Interpretive Data was last revised on 2017. Testing performed by: [facility], [address] [place] [address] Blood 07/01/2024 9:10 AM STATISTICAL PROGRAMMER 07/01/2024 9:31 AM STATISTICAL PROGRAMMER us Adamakian Adkins MD LAB BLOOD ORDERABLES Final Resul t [facility] Department [place] [address] * (ABNORMAL) CBC with auto differential (07/01/2024 9:10 AM STATISTICAL PROGRAMMER) WBC 15.7(H) 3.8 - 9.9 K/cumm Comment:Testing performed by : [facility], [address] [place] [address] Hgb 12.6 11.9 - 15.5 g/dL [facility] Comment:Testing performed by : [facility], [address] [place] [address] Hct 38.5 35.6 - 45.5 % ALMA ROSA OLEA Comment:Testing performed by : [facility], [address] [place] [address] Plt 379 150 - 400 K/cumm [facility] ROS[facility] Comment:Testing performed by : [facility], [address] [place] [address] MPV 7.8 6.8 - 10.4 fL [facility] Comment:Testing performed by : [facility], [address] [place] [address] RBC 4.09 3.90 - 5.20 M/cumm ALMA ROSA OLEA Comment:Testing performed by : [facility], [address] [place] [address] MCV 94.1 81.3 - 96.4 fL CERANGELA BJ Comment:Testing performed by : [facility], [address] [place] [phone] MCH 30.9 27.1 - 33.3 pg [facility] Comment:Testing performed by : [facility], [address] [place] [phone] MCHC 32.8 32.3 - 35.7 g/dL [facility] Comment:Testing performed by : [facility], [address] [place] [phone] RDW CV 13.2 11.1 - 14.9 % [facility] ROS[facility] Comment:Testing performed by : [facility], [address] [place] [phone] NRBC abs 0.00 0.00 - 0.01 K/cumm [facility] ROS[facility] Comment:Testing performed by : [facility], [address] [place] [phone] Blood 07/01/2024 9:10 AM STATISTICAL PROGRAMMER 07/01/2024 9:31 AM STATISTICAL PROGRAMMER us Adama Fa'christiano BRYANT LAB BLOOD ORDERABLES Final Resul t [facility] Department [place] [address] * Comprehensive metabolic panel (07/01/2024 9:10 AM STATISTICAL PROGRAMMER) Sodium 142 135 - 145 mmol/L Potassium, pl 3.9 3.3 - 4.9 mmol/L [facility] Chloride 107 97 - 110 mmol/L [facility] CO2 28 22 - 32 mmol/L [facility] Anion gap 7 2 - 15 mmol/L [facility] BUN 10 6 - 25 mg/dL [facility] Creatinine 0.78 0.60 - 1.10 mg/dL [facility] Glucose 117 70 - 199 mg/dL [facility] Comment: Interpretive Data Fasting glucose >/= 126 mg/dl is diagnostic for diabetes. ?? Fasting is defined as no caloric intake for at least 8 hours. Fasting glucose between 100 mg/dl to 125 mg/dl is diagnostic of prediabetes. In a patient with classic symptoms of hyperglycemia or hyperglycemic crisis, a random glucose >/= 200 mg/dl is diagnostic for diabetes. In the absence of unequivocal hyperglycemia, results should be confirmed by repeat testing. The classification and Diagnosis of Diabetes Diabetes Care 202; 46: S19-S40. Current interpretive data was last revised 2022. Calcium 9.5 8.5 - 10.3 mg/dL [facility] Bilirubin, total 0.2 0.1 - 1.2 mg/dL [facility] Protein, pl 7.4 6.5 - 8.5 g/dL [facility] Albumin 3.9 3.5 - 5.0 g/dL [facility] Alk phos 84 40 - 130 Units/L [facility] ALT 27 7 - 45 Units/L [facility] AST 18 10 - 45 Units/L [facility] Blood 07/01/2024 9:10 AM STATISTICAL PROGRAMMER 07/01/2024 9:30 AM STATISTICAL PROGRAMMER us Adama Fa'christiano BRYANT LAB BLOOD ORDERABLES Final Resul t [facility] Department [place] [address] * eGFR (06/10/2024 8:33 AM STATISTICAL PROGRAMMER) eGFR 90 >=60 mL/min/1. 73 m2 Comment: Interpretive Data Reference Interval Normal ?>/= 90 mL/min/1.73m2 Mildly decreased* ? 60 - 89 mL/min/1.73m2 Mildly to moderately decreased ?45 - 59 mL/min/1.73m2 Moderately to severely decreased ??30 - 44 mL/min/1.73m2 Severely decreased ?15 - 29 mL/min/1.73m2 Kidney Failure ?< 15 ??mL/min/1.73m2 *Relative to young adult level Estimated glomerular filtration rate is determined by the 2020 CKD-EPI equation recommended by the National Kidney Foundation (A Unifying Approach to GFR Estimation: Recommendations of the NKF-ASK Task Force on Reassessing the Inclusion of Race in Diagnosing Kidney Disease, JASN 202). The CKD-EPI equation should not be used for patients with unstable renal function and has not been validated in children and those over 70. Current interpretive data was last reviewed 2021. Blood 06/10/2024 8:33 AM STATISTICAL PROGRAMMER 06/10/2024 8:36 AM STATISTICAL PROGRAMMER us Adama Adkins MD LAB BLOOD ORDERABLES Final Resul t [facility] Department [place] [address] * (ABNORMAL) Differential, auto (06/10/2024 8:33 AM STATISTICAL PROGRAMMER) Neutrophil abs 6.9(H) 1.5 - 6.5 K/cumm Comment:Testing performed by : [facility], [address] [place], [place] [phone] Lymphocyte abs 0.8 0.8 - 3.3 K/cumm ALMA ROSA OLEA Comment:Testing performed by : [facility], [address] [place], [place] [phone] Monocyte abs 0.2 0.2 - 0.8 K/cumm ALMA ROSA BJ Comment:Testing performed by : [facility], [address] [place] [phone] Eosinophil abs 0.0 0.0 - 0.5 K/cumm CERANGELA BJ Comment:Testing performed by : [facility], [address] [place] [phone] Basophil abs 0.0 0.0 - 0.1 K/cumm CERANGELA BJ Comment:Testing performed by : [facility], [address] [place] [phone] Neutrophil pct 87.6 % CERANGELA OLEA Comment: Interpretive Data Percent cell count reference ranges are not reported, since discordance with absolute values may lead to misinterpretation of CBC data. Current Interpretive Data was last revised on 2017. Testing performed by: [facility], [address] [place] [phone] Lymphocyte pct 9.9 % CERANGELA OLEA Comment: Interpretive Data Percent cell count reference ranges are not reported, since discordance with absolute values may lead to misinterpretation of CBC data. Current Interpretive Data was last revised on 2017. Testing performed by: [facility], [address] [place] [phone] Monocyte pct 2.2 % CERANGELA OLEA Comment: Interpretive Data Percent cell count reference ranges are not reported, since discordance with absolute values may lead to misinterpretation of CBC data. Current Interpretive Data was last revised on 2017. Testing performed by: [facility] [facility], [address] [place] [phone] Eosinophil pct 0.0 % CERANGELA OLEA Comment: Interpretive Data Percent cell count reference ranges are not reported, since discordance with absolute values may lead to misinterpretation of CBC data. Current Interpretive Data was last revised on 2017. Testing performed by: [facility], [address] [place] [phone] Basophil pct 0.3 % CERANGELA OLEA Comment: Interpretive Data Percent cell count reference ranges are not reported, since discordance with absolute values may lead to misinterpretation of CBC data. Current Interpretive Data was last revised on 2017. Testing performed by: [facility], [address] [place] [phone] Blood 06/10/2024 8:33 AM STATISTICAL PROGRAMMER 06/10/2024 8:35 AM STATISTICAL PROGRAMMER us Adama Adkins MD LAB BLOOD ORDERABLES Final Resul t ALMA ROSA OLEA [facility] Department [place] [address] * CBC with auto differential (06/10/2024 8:33 AM STATISTICAL PROGRAMMER) WBC 7.8 3.8 - 9.9 K/cumm Comment:Testing performed by : [facility], [address] [place] [address] Hgb 13.4 11.9 - 15.5 g/dL CERNER BJ Comment:Testing performed by : [facility], [address] [place] [address] Hct 40.8 35.6 - 45.5 % CERNER BJ Comment:Testing performed by : [facility], [address] [place] [address] Plt 263 150 - 400 K/cumm CERNER BJ Comment:Testing performed by : [facility], [address] [place] [address] MPV 8.5 6.8 - 10.4 fL CERNER BJ Comment:Testing performed by : [facility], [address] [place] [address] RBC 4.31 3.90 - 5.20 M/cumm CERNER BJ Comment:Testing performed by : [facility], [address] [place] [address] MCV 94.6 81.3 - 96.4 fL CERNER BJ Comment:Testing performed by : [facility], [address] [place], [place] [phone] MCH 31.1 27.1 - 33.3 pg CERNER BJ Comment:Testing performed by : [facility], [address] [place] [address] MCHC 32.9 32.3 - 35.7 g/dL CERNER BJ Comment:Testing performed by : [facility], [address] [place] [address] RDW CV 13.4 11.1 - 14.9 % CERNER BJ Comment:Testing performed by : [facility], [address] [place] [address] NRBC abs 0.00 0.00 - 0.01 K/cumm CERNER BJ Comment:Testing performed by : [facility], [address] [place] [phone] Blood 06/10/2024 8:33 AM STATISTICAL PROGRAMMER 06/10/2024 8:35 AM STATISTICAL PROGRAMMER us Adama Adkins MD LAB BLOOD ORDERABLES Final Resul t [facility] Department [place] [address] * Comprehensive metabolic panel (06/10/2024 8:33 AM STATISTICAL PROGRAMMER) Sodium 142 135 - 145 mmol/L Potassium, pl 3.9 3.3 - 4.9 mmol/L [facility] Chloride 107 97 - 110 mmol/L [facility] CO2 27 22 - 32 mmol/L [facility] Anion gap 8 2 - 15 mmol/L [facility] BUN 13 6 - 25 mg/dL [facility] Creatinine 0.80 0.60 - 1.10 mg/dL [facility] Glucose 180 70 - 199 mg/dL [facility] Comment: Interpretive Data Fasting glucose >/= 126 mg/dl is diagnostic for diabetes. ?? Fasting is defined as no caloric intake for at least 8 hours. Fasting glucose between 100 mg/dl to 125 mg/dl is diagnostic of prediabetes. In a patient with classic symptoms of hyperglycemia or hyperglycemic crisis, a random glucose >/= 200 mg/dl is diagnostic for diabetes. In the absence of unequivocal hyperglycemia, results should be confirmed by repeat testing. The classification and Diagnosis of Diabetes Diabetes Care 202; 46: S19-S40. Current interpretive data was last revised 2022. Calcium 9.5 8.5 - 10.3 mg/dL [facility] Bilirubin, total 0.2 0.1 - 1.2 mg/dL [facility] Protein, pl 7.4 6.5 - 8.5 g/dL [facility] Albumin 3.8 3.5 - 5.0 g/dL [facility] Alk phos 73 40 - 130 Units/L CERNER BJ ALT 26 7 - 45 Units/L [facility] AST 20 10 - 45 Units/L [facility] Blood 06/10/2024 8:33 AM STATISTICAL PROGRAMMER 06/10/2024 8:36 AM STATISTICAL PROGRAMMER Adama Adkins MD LAB BLOOD ORDERABLES Final Resul t AL[facility] ROSA [facility] Department [place] [address] * XR Chest 1 View (06/08/2024 9:28 AM STATISTICAL PROGRAMMER) Anatomical Region Laterality Modality Body, Chest N/A Computed Radiogr aphy 06/08/2024 9:48 AM STATISTICAL PROGRAMMER Impressions 06/08/2024 9:48 AM STATISTICAL PROGRAMMER Right internal jugular port catheter tip at superior cavoatrial junction. Normal heart size and mediastinal contours. ??Small band like opacity in the left upper lung with no correlate on CT 06/04/2024 may represent atelectasis. ??No pleural effusion or pneumothorax. Electronically signed by: Nahum Fisher M.D. Narrative 06/08/2024 9:48 AM STATISTICAL PROGRAMMER EXAMINATION: 1 view chest radiograph COMPARISON: None available. Procedure Note Nahum Fisher MD - 06/08/2024 EXAMINATION: 1 view chest radiograph COMPARISON: None available. IMPRESSION: Right internal jugular port catheter tip at superior cavoatrial junction. Normal heart size and mediastinal contours. Small band like opacity in the left upper lung with no correlate on CT 06/04/2024 may represent atelectasis. No pleural effusion or pneumothorax. Electronically signed by: Nahum Fisher M.D. Kendal Malhotra MD PhD IMG XR PROCEDURES Final Re sult * FL Fluoroscopy < 1 Hour (06/08/2024 8:40 AM STATISTICAL PROGRAMMER) Narrative [facility] - 06/08/2024 8:41 AM STATISTICAL PROGRAMMER The images from this study are not interpreted by Radiology. ??Please refer to the physician's procedure / OR operative note. Kendal Malhotra MD PhD IMG FLUOROSCOPY PROCEDURES Final Result RAD_PACS_[facility] * Peripheral IV Catheter (06/08/2024 7:54 AM STATISTICAL PROGRAMMER) Travon Cole MD - 06/08/2024 7:54 AM STATISTICAL PROGRAMMER Travon Soto MD ? 06/08/2024 ??7:55 AM Peripheral IV Catheter Patient location: pre-op holding Staff: Supervising provider: Jorge Thompson MD Placed by: Resident: Travon Soto MD Preprocedure prep: Prep solution: alcohol PPE: gloves and provider hat/mask PIV line: Laterality: left Site: hand Catheter size: 20 g Technique: direct visualization and palpatation Procedure details: good blood return and occlusive dressing applied Number of attempts: 1 Assessment: Events: patient tolerated procedure well with no complications Jorge Thompson MD ANESTHESIA ORDERABLES Final Result * Airway (06/08/2024 7:53 AM STATISTICAL PROGRAMMER) Travon Cole MD - 06/08/2024 7:53 AM STATISTICAL PROGRAMMER Travon Soto MD ? 06/08/2024 ??7:54 AM Airway Patient location: OR Urgency: elective Indications for airway management: anesthesia Difficult airway: no Staff: Supervising provider: Jorge Thompson MD Placed by: Resident: Travon Soto MD Emergent airway documentation: Risks and benefits discussed: yes Consent obtained: yes Consent given by: patient Airway prep: Preoxygenated: yes Patient position: sniffing MILS maintained throughout: yes Mask difficulty assessment: 0 - not attempted Spontaneous ventilation during airway: present Sedation level during airway: GA Final airway details: Final airway type: supraglottic airway Final supraglottic airway: IGel SGA size: 4 Number of attempts: 1 Ventilation between attempts: none Planned trial extubation: yes Jorge Thompson MD ANESTHESIA ORDERABLES Final Result * NM Bone Imaging Whole Body (06/04/2024 2:21 PM STATISTICAL PROGRAMMER) Anatomical Region Laterality Modality N/A Nuclear Medicine 06/04/2024 4:01 PM STATISTICAL PROGRAMMER Impressions 06/04/2024 4:19 PM STATISTICAL PROGRAMMER No evidence of osseous metastatic disease. Dictated by: Henrique Mendez MD PHD The radiology attending physician has personally reviewed this study, and had reviewed and/or edited this written report and agrees with it. Electronically signed by: Sidney Hallman M.D. Narrative 06/04/2024 4:19 PM STATISTICAL PROGRAMMER EXAMINATION: ??BONE SCINTIGRAPHY (WHOLE-BODY) DATE OF STUDY: ?? 06/04/2024 RADIOPHARMACEUTICAL: ?? 19.79 mCi Tc-99m MDP i.v. 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 FINDINGS: ??Delayed whole-body scintigrams were obtained. ?? Prior nuclear medicine studies used for comparison: none Other radiographic comparisons: CT dated 06/04/2024. There is normal distribution of activity throughout the skeleton. Degenerative uptake is noted within the shoulders, wrists, knees, ankle, and feet. ??Additional focal areas of tracer uptake surrounding the distal femurs and proximal right tibia are nonspecific, but may represent enthesitis. Procedure Note Sidney Hallman MD - 06/04/2024 EXAMINATION: BONE SCINTIGRAPHY (WHOLE-BODY) DATE OF STUDY: 06/04/2024 RADIOPHARMACEUTICAL: 19.79 mCi Tc-99m MDP i.v. 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 FINDINGS: Delayed whole-body scintigrams were obtained. Prior nuclear medicine studies used for comparison: none Other radiographic comparisons: CT dated 06/04/2024. There is normal distribution of activity throughout the skeleton. Degenerative uptake is noted within the shoulders, wrists, knees, ankle, and feet. Additional focal areas of tracer uptake surrounding the distal femurs and proximal right tibia are nonspecific, but may represent enthesitis. IMPRESSION: No evidence of osseous metastatic disease. Dictated by: Henrique Mendez MD PHD The radiology attending physician has personally reviewed this study, and had reviewed and/or edited this written report and agrees with it. Electronically signed by: Sidney Hallman M.D. us Kendal Malhotra MD PhD IMG NM PROCEDURES Final Re sult * CT Chest Abdomen Pelvis W Contrast (06/04/2024 12:26 PM STATISTICAL PROGRAMMER) Anatomical Region Laterality Modality Body N/A Computed Tomogra phy 06/04/2024 12:3 8 PM STATISTICAL PROGRAMMER Impressions 06/04/2024 12:38 PM STATISTICAL PROGRAMMER 1. ??Known primary right breast malignancy is not well delineated on CT. ??Otherwise, no specific evidence of metastatic disease in the chest, abdomen or pelvis. Electronically signed by: Rakesh Eisenberg M.D. Narrative 06/04/2024 12:38 PM STATISTICAL PROGRAMMER EXAMINATION: CT of the chest, abdomen and pelvis with intravenous contrast. TECHNIQUE: Computed axial tomographic images of the chest, abdomen and pelvis were obtained with intravenous contrast according to standard protocol. ??There were no immediate complications after the intravenous administration of 100 cc optiray 350. HISTORY: Right breast cancer COMPARISON: No prior CT available for review. ??Correlation is made with MRI breast from 05/20/2024 FINDINGS: Some scattered areas of mild atelectasis are noted but there are no suspicious pulmonary nodules or masses. ??No consolidation. ??No pneumothorax or pleural effusion. The primary right breast malignancy is not well delineated on CT. There is no supraclavicular, axillary, internal mammary, mediastinal, or hilar lymphadenopathy. ??The heart is normal in size and there is no pericardial effusion. No focal liver lesion. ??No bile duct dilatation. ??Gallbladder, adrenals, spleen, pancreas, kidneys normal Urinary bladder is incompletely distended. ??Surgically absent uterus. No suspicious adnexal lesion. No intraperitoneal free air. ??Trace pelvic ascites. No abdominal or pelvic lymphadenopathy. ??No omental nodularity. Abdominal aorta normal in caliber. Diverticulosis of the colon but no specific evidence of acute diverticulitis. ??The appendix is nondilated. ??No small or large bowel obstruction Mild degenerative changes are noted in the lower lumbar spine. ??No focally suspicious osseous lesion. Procedure Note Rakesh Eisenberg MD - 06/04/2024 EXAMINATION: CT of the chest, abdomen and pelvis with intravenous contrast. TECHNIQUE: Computed axial tomographic images of the chest, abdomen and pelvis were obtained with intravenous contrast according to standard protocol. There were no immediate complications after the intravenous administration of 100 cc optiray 350. HISTORY: Right breast cancer COMPARISON: No prior CT available for review. Correlation is made with MRI breast from 05/20/2024 FINDINGS: Some scattered areas of mild atelectasis are noted but there are no suspicious pulmonary nodules or masses. No consolidation. No pneumothorax or pleural effusion. The primary right breast malignancy is not well delineated on CT. There is no supraclavicular, axillary, internal mammary, mediastinal, or hilar lymphadenopathy. The heart is normal in size and there is no pericardial effusion. No focal liver lesion. No bile duct dilatation. Gallbladder, adrenals, spleen, pancreas, kidneys normal Urinary bladder is incompletely distended. Surgically absent uterus. No suspicious adnexal lesion. No intraperitoneal free air. Trace pelvic ascites. No abdominal or pelvic lymphadenopathy. No omental nodularity. Abdominal aorta normal in caliber. Diverticulosis of the colon but no specific evidence of acute diverticulitis. The appendix is nondilated. No small or large bowel obstruction Mild degenerative changes are noted in the lower lumbar spine. No focally suspicious osseous lesion. IMPRESSION: 1. Known primary right breast malignancy is not well delineated on CT. Otherwise, no specific evidence of metastatic disease in the chest, abdomen or pelvis. Electronically signed by: Rakesh Eisenberg M.D. us Kendal Malhotra MD PhD IMG CT PROCEDURES Final Re sult * eGFR (06/04/2024 11:03 AM STATISTICAL PROGRAMMER) eGFR 83 >=60 mL/min/1. 73 m2 Comment: Interpretive Data Reference Interval Normal ?>/= 90 mL/min/1.73m2 Mildly decreased* ? 60 - 89 mL/min/1.73m2 Mildly to moderately decreased ?45 - 59 mL/min/1.73m2 Moderately to severely decreased ??30 - 44 mL/min/1.73m2 Severely decreased ?15 - 29 mL/min/1.73m2 Kidney Failure ?< 15 ??mL/min/1.73m2 *Relative to young adult level Estimated glomerular filtration rate is determined by the 2020 CKD-EPI equation recommended by the National Kid[employer] (A Unifying Approach to GFR Estimation: Recommendations of the NKF-ASK Task Force on Reassessing the Inclusion of Race in Diagnosing Kidney Disease, JASN 2020). The CKD-EPI equation should not be used for patients with unstable renal function and has not been validated in children and those over 70. Current interpretive data was last reviewed 2021. Blood 06/04/2024 11:0 3 AM STATISTICAL PROGRAMMER 06/04/2024 11:12 AM STATISTICAL PROGRAMMER us Adama Adkins MD LAB BLOOD ORDERABLES Final Resul t [facility] Department [place] [address] * Differential, auto (06/04/2024 11:03 AM STATISTICAL PROGRAMMER) Neutrophil abs 4.9 1.5 - 6.5 K/cumm Imm gran abs 0.0 0.0 - 0.1 K/cumm [facility] Lymphocyte abs 1.9 0.8 - 3.3 K/cumm [facility] Monocyte abs 0.7 0.2 - 0.8 K/cumm [facility] Eosinophil abs 0.2 0.0 - 0.5 K/cumm [facility] Basophil abs 0.0 0.0 - 0.1 K/cumm [facility] Neutrophil pct 63.0 % [facility] Comment: Interpretive Data Percent cell count reference ranges are not reported, since discordance with absolute values may lead to misinterpretation of CBC data. Current Interpretive Data was last revised on 2017. Imm gran pct 0.3 % [facility] Comment: Interpretive Data Percent cell count reference ranges are not reported, since discordance with absolute values may lead to misinterpretation of CBC data. Current Interpretive Data was last revised on 2017. Lymphocyte pct 23.9 % [facility] Comment: Interpretive Data Percent cell count reference ranges are not reported, since discordance with absolute values may lead to misinterpretation of CBC data. Current Interpretive Data was last revised on 2017. Monocyte pct 9.2 % [facility] Comment: Interpretive Data Percent cell count reference ranges are not reported, since discordance with absolute values may lead to misinterpretation of CBC data. Current Interpretive Data was last revised on 2017. Eosinophil pct 3.1 % [facility] Comment: Interpretive Data Percent cell count reference ranges are not reported, since discordance with absolute values may lead to misinterpretation of CBC data. Current Interpretive Data was last revised on 2017. Basophil pct 0.5 % [facility] Comment: Interpretive Data Percent cell count reference ranges are not reported, since discordance with absolute values may lead to misinterpretation of CBC data. Current Interpretive Data was last revised on 2017. Blood 06/04/2024 11:0 3 AM STATISTICAL PROGRAMMER 06/04/2024 11:11 AM STATISTICAL PROGRAMMER us Adama Adkins MD LAB BLOOD ORDERABLES Final Resul t [facility] Department [place] [address] * CBC with auto differential (06/04/2024 11:03 AM STATISTICAL PROGRAMMER) WBC 7.8 3.8 - 9.9 K/cumm Hgb 14.5 11.9 - 15.5 g/dL [facility] Hct 43.8 35.6 - 45.5 % [facility] Plt 272 150 - 400 K/cumm [facility] MPV 10.4 9.1 - 12.3 fL [facility] RBC 4.63 3.90 - 5.20 M/cumm [facility] MCV 94.6 81.3 - 96.4 fL [facility] MCH 31.3 27.1 - 33.3 pg [facility] MCHC 33.1 32.3 - 35.7 g/dL [facility] RDW CV 12.8 11.1 - 14.9 % [facility] RDW SD 43.8 35.7 - 48.1 fL [facility] NRBC abs 0.00 0.00 - 0.01 K/cumm [facility] Blood 06/04/2024 11:0 3 AM STATISTICAL PROGRAMMER 06/04/2024 11:11 AM STATISTICAL PROGRAMMER us Adama Adkins MD LAB BLOOD ORDERABLES Final Resul t [facility] Department [place] [address] * Comprehensive metabolic panel (06/04/2024 11:03 AM STATISTICAL PROGRAMMER) Sodium 142 135 - 145 mmol/L Potassium, pl 4.9 3.3 - 4.9 mmol/L [facility] Comment:Hemolyzed; Potassium value may be falsely elevated by as much as 0.3-0.5 mmol/L. Suggest redraw and reanalysis. Chloride 105 97 - 110 mmol/L [facility] CO2 30 22 - 32 mmol/L [facility] Anion gap 7 2 - 15 mmol/L [facility] BUN 14 6 - 25 mg/dL [facility] Creatinine 0.86 0.60 - 1.10 mg/dL [facility] Glucose 96 70 - 199 mg/dL [facility] Comment: Interpretive Data Fasting glucose >/= 126 mg/dl is diagnostic for diabetes. ?? Fasting is defined as no caloric intake for at least 8 hours. Fasting glucose between 100 mg/dl to 125 mg/dl is diagnostic of prediabetes. In a patient with classic symptoms of hyperglycemia or hyperglycemic crisis, a random glucose >/= 200 mg/dl is diagnostic for diabetes. In the absence of unequivocal hyperglycemia, results should be confirmed by repeat testing. The classification and Diagnosis of Diabetes Diabetes Care 2021; 46: S19-S40. Current interpretive data was last revised 2022. Calcium 9.7 8.5 - 10.3 mg/dL [facility]ERNER BJ Bilirubin, total 0.4 0.1 - 1.2 mg/dL [facility] BJ Protein, pl 7.7 6.5 - 8.5 g/dL CERNER BJ Albumin 4.0 3.5 - 5.0 g/dL CERNER BJ Alk phos 84 40 - 130 Units/L CERNER BJ ALT 32 7 - 45 Units/L CERNER BJ AST 33 10 - 45 Units/L CERNER BJ Comment:Hemolyzed; result ma y be falsely elevated Blood 06/04/2024 11:0 3 AM STATISTICAL PROGRAMMER 06/04/2024 11:11 AM STATISTICAL PROGRAMMER Adama Adkins MD LAB BLOOD ORDERABLES Final Resul t [facility] Department [place] [address] * Screening Mammogram Bilateral W Dannie (04/22/2024 3:57 PM CDT) Anatomical Region Laterality Modality Breast Bilateral Mammography Narrative 04/23/2024 1:05 PM CDT Mammogram Technique: Bilateral Digital Breast Tomosynthesis, Bilateral C-view 2D Screening mammogram. ??Views obtained: ??bilateral craniocaudal and bilateral mediolateral oblique. ??Computer Aided Detection was performed. Mammogram Findings: The present examination has been compared to prior imaging studies performed at [facility] on 09/21/2019, 10/11/2019 and 03/07/2023. There are scattered areas of fibroglandular density. There are new coarse heterogeneous calcifications with grouped distribution in the upper outer quadrant of the right breast. There is no suspicious abnormality in the left breast. Impression: New calcifications in the right breast require additional evaluation. A diagnostic mammogram of the right breast is recommended at this time. OVERALL FINAL ASSESSMENT: BI-RADS CATEGORY 0: ??Incomplete: ??Need additional imaging evaluation. Procedure Note Arthur Latham MD - 04/23/2024 Mammogram Technique: Bilateral Digital Breast Tomosynthesis, Bilateral C-view 2D Screening mammogram. Views obtained: bilateral craniocaudal and bilateral mediolateral oblique. Computer Aided Detection was performed. Mammogram Findings: The present examination has been compared to prior imaging studies performed at [facility] on 09/21/2019, 10/11/2019 and 03/07/2023. There are scattered areas of fibroglandular density. There are new coarse heterogeneous calcifications with groupeddistribution in the upper outer quadrant of the right breast. There is no suspicious abnormality in the left breast. Impression: New calcifications in the right breast require additional evaluation. A diagnostic mammogram of the right breast is recommended at this time. OVERALL FINAL ASSESSMENT: BI-RADS CATEGORY 0: Incomplete: Need additional imaging evaluation. Renee Soler NP IMG MAMMO PROCEDURES Final Result from Last 3 Months or Most Recently Relevant to Health Maintenance Insurance [facility] CHOICE PLUS [facility] Member Subscriber Plan / Payer (Ef fective 2024-Present) Name:Fanta Steve Member ID:[id number] Relation to Subscriber:Self Name:Fanta Steve Subscriber ID:[id number] Payer ID:[id number] (NAIC) Type:[facility] Address: [address] [place] [address] Care Teams Steamtable Worker Relationship Specialty Start Date End Date Daljit Wiley MD PCP - General Family Medicine 08/18/18
--- OUTSIDE RECORDS SUMMARY | 2024-08-24 20:25 | XMS_ITS | Clinical Summary ---
Author Organization [facility] Address [address] [place] [address] Care Team Providers Care Private Branch Exchange Service Adviser Name Role Phone Unavailable Primary Care Provider Unavailabl e Source Comments [facility],non-owned Affiliates and Associated Physician Practices is amultiple site organization consisting of ambulatory clinics and hospital sitesin [place], [place], [place] and [place]. This disclosure is being madepursuant to the Care Everywhere program and may not contain all information available regarding this patient. Last updated 18.[facility] Allergies No known active allergies Medications Be aware that medications may not be up to date on this document. Always verify current medications with the patient. No known medications Active Problems No known active problems Immunizations Name Administration Dates Next Due TDAP (7yrs+) 10/12/2017 Family History Medical History Relation Name Comments Cancer - Other Father Cancer - Other Maternal Grandfather Cancer - Other Maternal Grandmother Diabetes - Type 2 Mother Relation Name Status Comments Father Maternal Grandfather Maternal Grandmother Mother Alive Paternal Grandfather Paternal Grandmother Social History Tobacco Use Types Packs/Day Years Used Date Smoking Tobacco: Never Smokeless Tobacco: Never Alcohol Use Standard Drinks/Week Comments Yes 12 (1 standard drink = 0.6 oz pu re alcohol) Sex and Gender Information Value Date Recorded Sex Assigned at Not on file Gender Identity Not on file Sexual Orientation Not on file Last Filed Vital Signs Vital Sign Reading Time Taken Comments Blood Pressure 122/74 10/12/2017 3:00 PM CDT Pulse 83 10/12/2017 3:00 PM CDT Temperature 36.9 ??C (98.4 ??F) 10/12/2017 3:00 PM CD T Respiratory Rate 16 10/12/2017 3:00 PM CDT Oxygen Saturation - - Inhaled Oxygen Concentration - - Weight 121.1 kg (266 lb 14.4 oz) 10/12/2017 3:00 PM CDT Height 180.3 cm (5' 11 ) 10/12/2017 3:00 PM CDT Body Mass Index 37.22 10/12/2017 3:00 PM CDT Plan of Treatment Health Maintenance Due Date Last Done Comments COLOGUARD (AGES 45-75) - COL ON CA SCREENING 1974 COLON MONITORING 1974 COLONOSCOPY - COLON CA SCREENING 1974 CT COLONOGRAPHY - COLON CA SCREENING 1974 Colorectal Cancer Screening 1974 FIT - COLON CA SCREENING 1974 FLEX SIG - COLON CA SCREENING 1974 LIPID TESTING 1974 MAMMOGRAM 1974 PAP SMEAR 1974 HIV SCREENING 1989 HEPATITIS C SCREENING 09/29/1992 HEPATITIS B VACCINE (1 of 3 - 19+ 3-dose series) 1993 SCREENING FOR DIABETES 10/12/2017 COVID-19 VACCINE ( - 2023-2 5 season) 2024 INFLUENZA VACCINE (#1) 2024 DEPRESSION SCREENING 07/21/2024 ZOSTER VACCINE (1 of 2) 2024 DTAP/TDAP/TD VACCINES (2 - T d or Tdap) 10/13/2027 10/12/2017 HIB VACCINE Aged Out No longer eligi ble based on patient's age to complete this topic HPV VACCINE Aged Out No longer eligi ble based on patient's age to complete this topic MENINGOCOCCAL (Group B) VACCINE Aged Out No longer eligible based on patient's age to complete this topic MENINGOCOCCAL VACCINE Aged Out No nichole abigail eligible based on patient's age to complete this topic PNEUMOCOCCAL VACCINE Aged Out No long er eligible based on patient's age to complete this topic
--- OUTSIDE RECORDS SUMMARY | 2024-08-24 20:25 | XMS_ITS | Referral Summary ---
Author Organization [facility] Address [address] [place] [phone] Care Team Providers Care Garage Helper Name Role Phone Daljit Wiley MD Primary Care Provider [phone] Encounters Date Type Department Care Team Description 08/12/2024 12:00 PM REPORTING SPECIALIST Infusion [facility] [address] [place] [phone] Prevention of chemotherapy-induced neutropenia (Primary Dx); Malignant 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 in female, estrogen receptor negative (HCC) 08/12/2024 10:00 AM REPORTING SPECIALIST Clinical Support [facility] Lab Collection [address] [place] [address] Malignant 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 in female, estrogen receptor negative (HCC); Prevention of chemotherapy-induced neutropenia 08/12/2024 11:00 AM REPORTING SPECIALIST Office Visit [facility] [address] [place] [phone] Adama Adkins MD Prevention of chemotherapy-induced neutropenia (Primary Dx); Malignant 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 in female, estrogen receptor negative (HCC) 07/22/2024 10:45 AM REPORTING SPECIALIST Clinical Support [facility] [address] [place] [address] Malignant 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 in female, estrogen receptor negative (HCC); Prevention of chemotherapy-induced neutropenia 07/22/2024 1:30 PM REPORTING SPECIALIST [facility]fusion [facility] [address] [facility] 5 [place] [address] Prevention of chemotherapy-induced neutropenia (Primary Dx); Malignant 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 in female, estrogen receptor negative (HCC) 07/22/2024 11:45 AM REPORTING SPECIALIST Office Visit [facility] [address] [place] [address] Floor 8 [place] [phone] Adama Adkins MD Encounter for monitoring cardiotoxic drug therapy (Primary Dx); Malignant 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 in female, estrogen receptor negative (HCC); Prevention of chemotherapy-induced neutropenia 07/01/2024 8:45 AM REPORTING SPECIALIST Clinical Support [facility] Floor 6 [place] [address] Malignant 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 in female, estrogen receptor negative (HCC); Prevention of chemotherapy-induced neutropenia 07/01/2024 10:30 AM REPORTING SPECIALIST Infusion [facility] [address] [place] [address] Floor 6 [place] [address] Prevention of chemotherapy-induced neutropenia (Primary Dx); Malignant 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 in female, estrogen receptor negative (HCC) 07/01/2024 9:30 AM REPORTING SPECIALIST Office Visit [facility] [address] [place] [address] Floor 8 [place] [phone] Deni Licona PA Prevention of chemotherapy-induced neutropenia (Primary Dx); Malignant 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 in female, estrogen receptor negative (HCC) 06/22/2024 8:00 AM REPORTING SPECIALIST Office Visit [facility] Surgery [facility] 6th [place] [address] [place] [address] Connie Hayes MD Malignant 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 in female, estrogen receptor negative (HCC) 06/15/2024 Telephone [facility] [address] [place] [address] Floor 8 [place] [phone] Allyssa Neumann RN 06/10/2024 Orders Only [facility] [address] [place] [address] Floor 8 [place] [address] Adama Adkins MD Malignant 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 in female, estrogen receptor negative (HCC) (Primary Dx) 06/10/2024 8:15 AM REPORTING SPECIALIST Clinical Support [facility] 5 [place] [address] Malignant 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 in female, estrogen receptor negative (HCC) 06/10/2024 10:00 AM REPORTING SPECIALIST Infusion [facility] [address] [facility] Floor 6 [place] [address] Prevention of chemotherapy-induced neutropenia (Primary Dx); Malignant 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 in female, estrogen receptor negative (HCC) 06/10/2024 7:45 AM REPORTING SPECIALIST Clinical Support [facility] Lab [address] [place] [address] 5 [place] [address] Malignant 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 in female, estrogen receptor negative (HCC); Prevention of chemotherapy-induced neutropenia 06/10/2024 8:45 AM REPORTING SPECIALIST Office Visit [facility] [address] [place] [address] 8 [place] [address] Adama Adkins MD Malignant 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 in female, estrogen receptor negative (HCC) (Primary Dx); Prevention of chemotherapy-induced neutropenia 06/08/2024 9:07 AM REPORTING SPECIALIST - 06/08/2024 11:59 PM REPORTING SPECIALIST Hospital Encounter [facility] Radiology [facility] ([facility]) [address] [place] [address] Malignant 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 in female, estrogen receptor negative (HCC) Discharge Disposition: Discharge to home or self care 06/08/2024 7:30 AM REPORTING SPECIALIST - 06/08/2024 8:45 AM REPORTING SPECIALIST Surgery [facility] Operating Room [facility] ([facility]) [address] [place] [address] Kendal Malhotra MD PhD INSERTION PORT A CATH 06/08/2024 7:30 AM REPORTING SPECIALIST Anesthesia Event [facility] Operating [facility] ([facility]) [address] [place] [address] Jorge Luna MD Dolnick, Karen Leigh, NP 06/08/2024 5:32 AM REPORTING SPECIALIST - 06/08/2024 9:57 AM REPORTING SPECIALIST Hospital Encounter [facility] Operating [facility] ([facility]) [address] [place] [address] Aft, Kendal Martinez MD PhD Malignant 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 in female, estrogen receptor negative (HCC) (Primary Dx) Discharge Disposition: Discharge to home or self care 06/04/2024 12:30 PM REPORTING SPECIALIST Lab [facility] ([facility]) [address] [place] [phone] Malignant 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 in female, estrogen receptor negative (HCC); Prevention of chemotherapy-induced neutropenia 06/04/2024 10:56 AM REPORTING SPECIALIST - 06/04/2024 11:59 PM REPORTING SPECIALIST Hospital Encounter [facility] ([facility]) [address] [place] [address] Malignant 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 in female, estrogen receptor negative (HCC) Discharge Disposition: Discharge to home or self care 06/04/2024 10:56 AM REPORTING SPECIALIST - 06/04/2024 11:59 PM REPORTING SPECIALIST Hospital Encounter [facility] ([facility]) [address] [place] [address] Discharge Disposition: Discharge to home or self care 06/04/2024 10:56 AM REPORTING SPECIALIST - 06/04/2024 11:59 PM REPORTING SPECIALIST Hospital Encounter [facility] ([facility]) [address] [place] [address] Malignant 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 in female, estrogen receptor negative (HCC) Discharge Disposition: Discharge to home or self care 06/02/2024 Orders Only [facility] 8 [place] [address] Adama Adkins MD Malignant 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 in female, estrogen receptor negative (HCC) (Primary Dx); Prevention of chemotherapy-induced neutropenia; Bone pain due to G-CSF; Chemotherapy induced diarrhea; Encounter for care related to vascular access port; Encounter for antineoplastic chemotherapy 05/28/2024 Orders Only [facility] [address] [place] [address] Adama Adkins MD 05/27/2024 Telephone [facility] Specialty Services [address] [place] [address] Steffanie Rodriguez RN GI Preprocedure 05/25/2024 Orders Only [facility] [address] [facility] 8 [place] [address] AftKendal MD PhD Malignant 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 in female, estrogen receptor negative (HCC) (Primary Dx) 05/24/2024 Telephone [facility] [address] [place] [phone] Allyssa Neumann RN 05/24/2024 Telephone [facility] Surgery [address] [place] [phone] Kendal Malhotra MD PhD from Last 3 Months Allergies No known active allergies Medications melatonin [...] per 24 hours. 60 capsule 1 06/02/20 24 Active cephalexin (KEFLEX) 250 mg capsule Take [...] as needed for pain 5 tablet 06/08/20 24 Active senna (SENOKOT) 8.6 mg tablet Take 1 tablet by mouth daily 30 tablet 06/08/20 24 2024 Active Active Problems Problem Noted Date Diagnosed Date Malignant neoplasm of upper- outer quadrant of right breast in female, estrogen receptor negative 05/10/2024 Cancer Staging:Clinical:Stage Unknown(cT2, cNX, cM0, G3, ER-, [place]-, HER2+) - Unsigned Prevention of chemotherapy-induced neutropenia 0 09/22/2019 Fibrocystic breast changes of both breasts 08/18 History of abnormal mammogram 06/29/2018 Immunizations Name Administration Dates Next Due Tdap 10/12/2017 Social History Tobacco Use Types Packs/Day Years [...] on file Legal Sex Female 5:54 AM REPORTING SPECIALIST Gender Identity Not on file Sexual Orientation Not on file Last Filed Vital Signs Vital Sign Reading Time Taken Comments Blood Pressure 119/82 08/12/2024 11:05 AM REPORTING SPECIALIST Pulse 74 08/12/2024 11:05 AM REPORTING SPECIALIST Temperature 36.2 ??C (97.2 ??F) 08/12/2024 11:[address] Respiratory Rate 18 08/12/2024 11:05 AM REPORTING SPECIALIST Oxygen Saturation 97% 08/12/2024 11:05 AM REPORTING SPECIALIST Inhaled Oxygen Concentration - - Weight 124.3 kg (274 lb) 08/12/2024 11:05 AM REPORTING SPECIALIST Height 177.8 cm (5' 10 ) 08/12/2024 11:05 AM REPORTING SPECIALIST Body Mass Index 39.31 08/12/2024 11:05 AM REPORTING SPECIALIST Plan of Treatment Not on file Medical Devices Implanted Type Area Lining Cutter Device Identifier Shelf Expiration Date Model / Serial / Lot [employer] Eviva 13cm Identifier Biopsy Site [id number] - [id number] Implanted:Qty: 1 on 05/03/2024 at [facility] [employer] [id number] 01/12/2025 LEYDA -13 / / [id number] [employer] Powerport Clearvue Airguard 8fr 1 Lumen Lightweight Intermediate Latex Free [id number] - [id number] - [id number] Implanted:Qty: 1 on 06/08/2024 by Aft, Kendal Martinez MD PhD at [facility] [id number] 06/19/2025 [id number] / [id number] / [id number] Procedures Procedure Name Priority Date/Time Associated Diagnosis Comments EGFR STAT 08/12/2024 10:35 AM REPORTING SPECIALIST Malignant 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 in female, estrogen receptor negative (HCC) Prevention of chemotherapy-induc ed neutropenia DIFFERENTIAL AUTO STAT 08/12/2024 10: 35 AM REPORTING SPECIALIST Malignant 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 in female, estrogen receptor negative (HCC) Prevention of chemotherapy-induc ed neutropenia CBC WITH AUTO DIFFERENTIAL STAT 08/12/2024 10:35 AM REPORTING SPECIALIST Malignant 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 in female, estrogen receptor negative (HCC) Prevention of chemotherapy-induc ed neutropenia COMPREHENSIVE METABOLIC PANEL STAT 08/12/2024 10:35 AM REPORTING SPECIALIST Malignant 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 in female, estrogen receptor negative (HCC) Prevention of chemotherapy-induc ed neutropenia EGFR STAT 07/22/2024 11:11 AM REPORTING SPECIALIST Malignant 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 in female, estrogen receptor negative (HCC) Prevention of chemotherapy-induc ed neutropenia DIFFERENTIAL AUTO STAT 07/22/2024 11: 11 AM REPORTING SPECIALIST Malignant 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 in female, estrogen receptor negative (HCC) Prevention of chemotherapy-induc ed neutropenia CBC WITH AUTO DIFFERENTIAL STAT 07/22/2024 11:11 AM REPORTING SPECIALIST Malignant 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 in female, estrogen receptor negative (HCC) Prevention of chemotherapy-induc ed neutropenia COMPREHENSIVE METABOLIC PANEL STAT 07/22/2024 11:11 AM REPORTING SPECIALIST Malignant 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 in female, estrogen receptor negative (HCC) Prevention of chemotherapy-induc ed neutropenia EGFR STAT 07/01/2024 9:10 AM REPORTING SPECIALIST Malignant 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 in female, estrogen receptor negative (HCC) Prevention of chemotherapy-induc ed neutropenia DIFFERENTIAL AUTO STAT 07/01/2024 9:1 0 AM REPORTING SPECIALIST Malignant 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 in female, estrogen receptor negative (HCC) Prevention of chemotherapy-induc ed neutropenia CBC WITH AUTO DIFFERENTIAL STAT 07/01/2024 9:10 AM REPORTING SPECIALIST Malignant 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 in female, estrogen receptor negative (HCC) Prevention of chemotherapy-induc ed neutropenia COMPREHENSIVE METABOLIC PANEL STAT 07/01/2024 9:10 AM REPORTING SPECIALIST Malignant 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 in female, estrogen receptor negative (HCC) Prevention of chemotherapy-induc ed neutropenia EGFR Routine 06/10/2024 8:33 AM REPORTING SPECIALIST Malignant 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 in female, estrogen receptor negative (HCC) DIFFERENTIAL AUTO Routine 06/10/2024 8:3 3 AM REPORTING SPECIALIST Malignant 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 in female, estrogen receptor negative (HCC) CBC WITH AUTO DIFFERENTIAL Routine 06/10/2024 8:33 AM REPORTING SPECIALIST Malignant 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 in female, estrogen receptor negative (HCC) COMPREHENSIVE METABOLIC PANEL Routine 06/10/2024 8:33 AM REPORTING SPECIALIST Malignant 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 in female, estrogen receptor negative (HCC) XR CHEST 1 VIEW Schedule Routine, Read Routine (OP Routine) 06/08/2024 9:28 AM REPORTING SPECIALIST Malignant 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 in female, estrogen receptor negative (HCC) FL FLUOROSCOPY < 1 HOUR IP Routine 06/08/2024 8:40 AM REPORTING SPECIALIST PERIPHERAL LINE Routine 06/08/2024 7:54 AM REPORTING SPECIALIST ANESTHESIA INTUBATION Routine 06/08/2024 7:53 AM REPORTING SPECIALIST INSERTION PORT A CATH 06/08/2024 7:30 AM REPORTING SPECIALIST Malignant 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 in female, estrogen receptor negative (HCC) NM BONE IMAGING WHOLE BODY Schedule Routine, Read Routine (OP Routine) 06/04/2024 2:21 PM REPORTING SPECIALIST Malignant 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 in female, estrogen receptor negative (HCC) CT CHEST ABDOMEN PELVIS W CONTRAST Schedule Routine, Read Routine (OP Routine) 06/04/2024 12:26 PM REPORTING SPECIALIST Malignant 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 in female, estrogen receptor negative (HCC) EGFR STAT 06/04/2024 11:03 AM REPORTING SPECIALIST Malignant 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 in female, estrogen receptor negative (HCC) Prevention of chemotherapy-induc ed neutropenia DIFFERENTIAL AUTO STAT 06/04/2024 11: 03 AM REPORTING SPECIALIST Malignant 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 in female, estrogen receptor negative (HCC) Prevention of chemotherapy-induc ed neutropenia CBC WITH AUTO DIFFERENTIAL STAT 06/04/2024 11:03 AM REPORTING SPECIALIST Malignant 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 in female, estrogen receptor negative (HCC) Prevention of chemotherapy-induc ed neutropenia COMPREHENSIVE METABOLIC PANEL STAT 06/04/2024 11:03 AM REPORTING SPECIALIST Malignant neoplasm of upper-outer quadrant of right [...] Maintenance Results * eGFR (08/12/2024 10:35 AM REPORTING SPECIALIST) eGFR >90 >=60 mL/min/1. 73 m2 Comment: [...] reviewed 2021. Blood 08/12/2024 10:3 5 AM REPORTING SPECIALIST 08/12/2024 10:49 AM REPORTING SPECIALIST us Adamakian Adkins MD LAB BLOOD ORDERABLES Final Resul t Performing Organization Address City/State/[facility] Co de Phone Number [facility] Department [place] [address] * (ABNORMAL) Differential, auto (08/12/2024 10:35 AM REPORTING SPECIALIST) Neutrophil abs 12.6(H) 1.5 - 6.5 K/cumm Comment:Testing performed by : [facility], [address] [place] [phone] Lymphocyte abs 1.7 0.8 - 3.3 K/cumm [facility] Comment:Testing performed by : [facility], [address] [place] [phone] Monocyte abs 1.6(H) 0.2 - 0.8 K/cumm [facility] Comment:Testing performed by : [facility], [address] [place] [phone] Eosinophil abs 0.0 0.0 - 0.5 K/cumm [facility] Comment:Testing performed by : [facility], [address] [place] [phone] Basophil abs 0.0 0.0 - 0.1 K/cumm [facility] Comment:Testing performed by : [facility], [address] [place] [phone] Neutrophil pct 79.2 % [facility] Comment: Interpretive Data Percent cell count reference ranges are not reported, since discordance with absolute values may lead to misinterpretation of CBC data. Current Interpretive Data was last revised on 2017. Testing performed by: [facility], [address] [place] [phone] Lymphocyte pct 10.5 % [facility] Comment: Interpretive Data Percent cell count reference ranges are not reported, since discordance with absolute values may lead to misinterpretation of CBC data. Current Interpretive Data was last revised on 2017. Testing performed by: [facility], [address] [place] [phone] Monocyte pct 10.2 % [facility] Comment: Interpretive Data Percent cell count reference ranges are not reported, since discordance with absolute values may lead to misinterpretation of CBC data. Current Interpretive Data was last revised on 2017. Testing performed by: [facility], [address] [place] [phone] Eosinophil pct 0.0 % [facility] Comment: Interpretive Data Percent cell count reference ranges are not reported, since discordance with absolute values may lead to misinterpretation of CBC data. Current Interpretive Data was last revised on 2017. Testing performed by: [facility], [address] [place] [phone] Basophil pct 0.1 % [facility] Comment: Interpretive Data Percent cell count reference ranges are not reported, since discordance with absolute values may lead to misinterpretation of CBC data. Current Interpretive Data was last revised on 2017. Testing performed by: [facility], [address] [place] [address] Blood 08/12/2024 10:3 5 AM REPORTING SPECIALIST 08/12/2024 10:50 AM REPORTING SPECIALIST Adama Adkins MD LAB BLOOD ORDERABLES Final [facility]ul t [facility] Department [place] [address] * (ABNORMAL) CBC with auto differential (08/12/2024 10:35 AM REPORTING SPECIALIST) WBC 15.9(H) 3.8 - 9.9 K/cumm Comment:Testing performed by : [facility], [address] [place] [address] Hgb 11.1(L) 11.9 - 15.5 g/dL [facility] Comment:Testing performed by : [facility], [address] [place] [address] Hct 32.8(L) 35.6 - 45.5 % [facility] Comment:Testing performed by : [facility], [address] [place] [address] Plt 394 150 - 400 K/cumm [facility] Comment:Testing performed by : [facility], [address] [place] [address] MPV 7.3 6.8 - 10.4 fL [facility] Comment:Testing performed by : [facility], [address] [place] [address] RBC 3.35(L) 3.90 - 5.20 M/cumm [facility] Comment:Testing performed by : [facility], [address] [place] [address] MCV 98.0(H) 81.3 - 96.4 fL [facility] Comment:Testing performed by : [facility], [address] [place] [phone] MCH 33.0 27.1 - 33.3 pg [facility] Comment:Testing performed by : [facility], [address] [place], [place] [phone] MCHC 33.7 32.3 - 35.7 g/dL [facility] Comment:Testing performed by : [facility], [address] [place], [place] [phone] RDW CV 18.1(H) 11.1 - 14.9 % [facility] Comment:Testing performed by : [facility], [address] [place], [place] [phone] NRBC abs 0.00 0.00 - 0.01 K/cumm [facility] Comment:Testing performed by : [facility], [address] [place], [place] [phone] Blood 08/12/2024 10:3 5 AM REPORTING SPECIALIST 08/12/2024 10:50 AM REPORTING SPECIALIST us Adama Fa'christiano BRYANT LAB BLOOD ORDERABLES Final Resul t [facility] One [facility] Department [place] [address] * (ABNORMAL) Comprehensive metabolic panel (08/12/2024 10:35 AM REPORTING SPECIALIST) Sodium 141 135 - 145 mmol/L Potassium, pl 4.1 3.3 - 4.9 mmol/L [facility] Chloride 106 97 - 110 mmol/L [facility] CO2 27 22 - 32 mmol/L [facility] Anion gap 8 2 - 15 mmol/L [facility] BUN 13 6 - 25 mg/dL [facility] Creatinine 0.67 0.60 - 1.10 mg/dL [facility] Glucose 108 70 - 199 mg/dL [facility] Comment: Interpretive Data Fasting glucose >/= 126 [...] Calcium 9.5 8.5 - 10.3 mg/dL [facility] Bilirubin, total <0.2 0.1 - 1.2 mg/dL [facility] Protein, pl 7.2 6.5 - 8.5 g/dL [facility] Albumin 4.0 3.5 - 5.0 g/dL [facility] Alk phos 101 40 - 130 Units/L [facility] ALT 53(H) 7 - 45 Units/L [facility] AST 37 10 - 45 Units/L [facility] Blood 08/12/2024 10:3 5 AM REPORTING SPECIALIST 08/12/2024 10:49 AM REPORTING SPECIALIST us Adama Fa'christiano BRYANT LAB BLOOD ORDERABLES Final Resul t [facility] Department [place] [address] * eGFR (07/22/2024 11:11 AM REPORTING SPECIALIST) eGFR >90 >=60 mL/min/1. 73 m2 Comment: [...] reviewed 2021. Blood 07/22/2024 11:1 1 AM REPORTING SPECIALIST 07/22/2024 11:14 AM REPORTING SPECIALIST us Deni RADFORD LAB BLOOD ORDERABLES Final Result [facility] Department [place] [address] * (ABNORMAL) Differential, auto (07/22/2024 11:11 AM REPORTING SPECIALIST) Neutrophil abs 12.9(H) 1.5 - 6.5 K/cumm Comment:Testing performed by : [facility] Lab, [address] [place], [place] [phone] Lymphocyte abs 1.0 0.8 - 3.3 K/cumm [facility] Comment:Testing performed by : [facility], [address] [place], [place] [phone] Monocyte abs 0.7 0.2 - 0.8 K/cumm [facility] Comment:Testing performed by : [facility], [address] [place] [phone] Eosinophil abs 0.0 0.0 - 0.5 K/cumm [facility] Comment:Testing performed by : [facility], [address] [place] [phone] Basophil abs 0.0 0.0 - 0.1 K/cumm [facility] Comment:Testing performed by : [facility], [address] [place] [phone] Neutrophil pct 88.1 % [facility] Comment: Interpretive Data Percent cell count reference ranges are not reported, since discordance with absolute values may lead to misinterpretation of CBC data. Current Interpretive Data was last revised on 2017. Testing performed by: [facility], [address] [place] [phone] Lymphocyte pct 6.7 % [facility] Comment: Interpretive Data Percent cell count reference ranges are not reported, since discordance with absolute values may lead to misinterpretation of CBC data. Current Interpretive Data was last revised on 2017. Testing performed by: [facility], [address] [place] [phone] Monocyte pct 4.9 % [facility] Comment: Interpretive Data Percent cell count reference ranges are not reported, since discordance with absolute values may lead to misinterpretation of CBC data. Current Interpretive Data was last revised on 2017. Testing performed by: [facility], [address] [place] [phone] Eosinophil pct 0.0 % [facility] Comment: Interpretive Data Percent cell count reference ranges are not reported, since discordance with absolute values may lead to misinterpretation of CBC data. Current Interpretive Data was last revised on 2017. Testing performed by: [facility], [address] [place] [phone] Basophil pct 0.3 % [facility] Comment: Interpretive Data Percent cell count reference ranges are not reported, since discordance with absolute values may lead to misinterpretation of CBC data. Current Interpretive Data was last revised on 2017. Testing performed by: [facility], [address] [place] [phone] Blood 07/22/2024 11:1 1 AM REPORTING SPECIALIST 07/22/2024 11:12 AM REPORTING SPECIALIST us Deni RADFORD LAB BLOOD ORDERABLES Final Result [facility] Department [place] [address] * (ABNORMAL) CBC with auto differential (07/22/2024 11:11 AM REPORTING SPECIALIST) WBC 14.6(H) 3.8 - 9.9 K/cumm Comment:Testing performed by : [facility], [address] [place] [address] Hgb 12.1 11.9 - 15.5 g/dL [facility] Comment:Testing performed by : [facility], [address] [place] [address] Hct 35.8 35.6 - 45.5 % [facility] Comment:Testing performed by : [facility], [address] [place] [address] Plt 413(H) 150 - 400 K/cumm [facility] Comment:Testing performed by : [facility], [address] [place] [address] MPV 7.2 6.8 - 10.4 fL [facility] Comment:Testing performed by : [facility], [address] [place] [address] RBC 3.76(L) 3.90 - 5.20 M/cumm [facility] Comment:Testing performed by : [facility], [address] [place] [address] MCV 95.3 81.3 - 96.4 fL [facility] Comment:Testing performed by : [facility], [address] [place] [address] MCH 32.3 27.1 - 33.3 pg [facility] Comment:Testing performed by : [facility], [address] [place] [address] MCHC 33.9 32.3 - 35.7 g/dL [facility] Comment:Testing performed by : [facility], [address] [place] [address] RDW CV 15.1(H) 11.1 - 14.9 % [facility] Comment:Testing performed by : [facility], [address] [place] [address] NRBC abs 0.00 0.00 - 0.01 K/cumm [facility] Comment:Testing performed by : [facility], [address] [place] [phone] Blood 07/22/2024 11:1 1 AM REPORTING SPECIALIST 07/22/2024 11:12 AM REPORTING SPECIALIST us Deni RADFORD LAB BLOOD ORDERABLES Final Result [facility] Department [place] [address] * (ABNORMAL) Comprehensive metabolic panel (07/22/2024 11:11 AM REPORTING SPECIALIST) Sodium 138 135 - 145 mmol/L Potassium, pl 4.0 3.3 - 4.9 mmol/L [facility] Chloride 104 97 - 110 mmol/L [facility] CO2 27 22 - 32 mmol/L [facility] Anion gap 7 2 - 15 mmol/L [facility] BUN 10 6 - 25 mg/dL [facility] Creatinine 0.64 0.60 - 1.10 mg/dL [facility] Glucose 138 70 - 199 mg/dL [facility] Comment: Interpretive Data Fasting glucose >/= 126 [...] classification and Diagnosis of Diabetes Diabetes Care 2022; 46: S19-S40. Current interpretive data was last revised 2022. Calcium 9.6 8.5 - 10.3 mg/dL [facility] Bilirubin, total 0.2 0.1 - 1.2 mg/dL [facility] Protein, pl 7.3 6.5 - 8.5 g/dL [facility] Albumin 4.0 3.5 - 5.0 g/dL [facility] Alk phos 100 40 - 130 Units/L [facility] ALT 60(H) 7 - 45 Units/L [facility] AST 31 10 - 45 Units/L [facility] Blood 07/22/2024 11:1 1 AM REPORTING SPECIALIST 07/22/2024 11:14 AM REPORTING SPECIALIST us Deni RADFORD LAB BLOOD ORDERABLES Final Result [facility] Department [place] [address] * eGFR (07/01/2024 9:10 AM REPORTING SPECIALIST) eGFR >90 >=60 mL/min/1. 73 m2 Comment: [...] last reviewed 2021. Blood 07/01/2024 9:10 AM REPORTING SPECIALIST 07/01/2024 9:30 AM REPORTING SPECIALIST us Adama Adkins MD LAB BLOOD ORDERABLES Final Resul t [facility] Department [place] [address] * (ABNORMAL) Differential, auto (07/01/2024 9:10 AM REPORTING SPECIALIST) Neutrophil abs 13.0(H) 1.5 - 6.5 K/cumm Comment:Testing performed by : [facility], [address] [place] [address] Lymphocyte abs 1.5 0.8 - 3.3 K/cumm [facility] Comment:Testing performed by : [facility], [address] [place], [place] [phone] Monocyte abs 1.2(H) 0.2 - 0.8 K/cumm [facility] Comment:Testing performed by : [facility], [address] [place], [place] [phone] Eosinophil abs 0.0 0.0 - 0.5 K/cumm [facility] Comment:Testing performed by : [facility], [address] [place] [phone] Basophil abs 0.0 0.0 - 0.1 K/cumm [facility] Comment:Testing performed by : [facility], [address] [place] [phone] Neutrophil pct 82.8 % [facility] Comment: Interpretive Data Percent cell count reference ranges are not reported, since discordance with absolute values may lead to misinterpretation of CBC data. Current Interpretive Data was last revised on 2017. Testing performed by: [facility], [address] [place] [phone] Lymphocyte pct 9.6 % [facility] Comment: Interpretive Data Percent cell count reference ranges are not reported, since discordance with absolute values may lead to misinterpretation of CBC data. Current Interpretive Data was last revised on 2017. Testing performed by: [facility], [address] [place] [phone] Monocyte pct 7.4 % [facility] Comment: Interpretive Data Percent cell count reference ranges are not reported, since discordance with absolute values may lead to misinterpretation of CBC data. Current Interpretive Data was last revised on 2017. Testing performed by: [facility], [address] [place] [phone] Eosinophil pct 0.0 % [facility] Comment: Interpretive Data Percent cell count reference ranges are not reported, since discordance with absolute values may lead to misinterpretation of CBC data. Current Interpretive Data was last revised on 2017. Testing performed by: [facility], [address] [place] [address] Basophil pct 0.2 % [facility] Comment: Interpretive Data Percent cell count reference ranges are not reported, since discordance with absolute values may lead to misinterpretation of CBC data. Current Interpretive Data was last revised on 2017. Testing performed by: [facility], [address] [place] [address] Blood 07/01/2024 9:10 AM REPORTING SPECIALIST 07/01/2024 9:31 AM REPORTING SPECIALIST us Adama Adkins MD LAB BLOOD ORDERABLES Final Resul t [facility] Department [place] [address] * (ABNORMAL) CBC with auto differential (07/01/2024 9:10 AM REPORTING SPECIALIST) WBC 15.7(H) 3.8 - 9.9 K/cumm Comment:Testing performed by : [facility], [address] [place] [phone] Hgb 12.6 11.9 - 15.5 g/dL [facility] Comment:Testing performed by : [facility], [address] [place] [address] Hct 38.5 35.6 - 45.5 % [facility] Comment:Testing performed by : [facility], [address] [place] [address] Plt 379 150 - 400 K/cumm [facility] Comment:Testing performed by : [facility], [address] [place] [address] MPV 7.8 6.8 - 10.4 fL [facility] Comment:Testing performed by : [facility], [address] [place] [address] RBC 4.09 3.90 - 5.20 M/cumm [facility] Comment:Testing performed by : [facility], [address] [place] [address] MCV 94.1 81.3 - 96.4 fL [facility] Comment:Testing performed by : [facility], [address] [place] [address] MCH 30.9 27.1 - 33.3 pg [facility] Comment:Testing performed by : [facility], [address] [place] [address] MCHC 32.8 32.3 - 35.7 g/dL [facility] Comment:Testing performed by : [facility], [address] [place] [address] RDW CV 13.2 11.1 - 14.9 % [facility] Comment:Testing performed by : [facility], [address] [place] [address] NRBC abs 0.00 0.00 - 0.01 K/cumm [facility] Comment:Testing performed by : [facility], [address] [place] [address] Blood 07/01/2024 9:10 AM REPORTING SPECIALIST 07/01/2024 9:31 AM REPORTING SPECIALIST us Adama Adkins MD LAB BLOOD ORDERABLES Final Resul t [facility] Department [place] [address] * Comprehensive metabolic panel (07/01/2024 9:10 AM REPORTING SPECIALIST) Sodium 142 135 - 145 mmol/L Potassium, pl 3.9 3.3 - 4.9 mmol/L [facility] Chloride 107 97 - 110 mmol/L [facility] CO2 28 22 - 32 mmol/L [facility] Anion gap 7 2 - 15 mmol/L [facility] BUN 10 6 - 25 mg/dL [facility] Creatinine 0.78 0.60 - 1.10 mg/dL [facility] Glucose 117 70 - 199 mg/dL [facility] Comment: Interpretive Data Fasting glucose >/= 126 [...] 2022. Calcium 9.5 8.5 - 10.3 mg/dL [facility] Bilirubin, total 0.2 0.1 - 1.2 mg/dL [facility] Protein, pl 7.4 6.5 - 8.5 g/dL [facility] Albumin 3.9 3.5 - 5.0 g/dL [facility] Alk phos 84 40 - 130 Units/L [facility] ALT 27 7 - 45 Units/L [facility] AST 18 10 - 45 Units/L [facility] Blood 07/01/2024 9:10 AM REPORTING SPECIALIST 07/01/2024 9:30 AM REPORTING SPECIALIST us Adama Adkins MD LAB BLOOD ORDERABLES Final Resul t [facility] Department [place] [address] * eGFR (06/10/2024 8:33 AM REPORTING SPECIALIST) eGFR 90 >=60 mL/min/1. 73 m2 Comment: [...] last reviewed 2021. Blood 06/10/2024 8:33 AM REPORTING SPECIALIST 06/10/2024 8:36 AM REPORTING SPECIALIST us Adama Adkins MD LAB BLOOD ORDERABLES Final Resul t [facility] Department [place] [address] * (ABNORMAL) Differential, auto (06/10/2024 8:33 AM REPORTING SPECIALIST) Neutrophil abs 6.9(H) 1.5 - 6.5 K/cumm Comment:Testing performed by : [facility], [address] [place] [address], [place] [phone] Lymphocyte abs 0.8 0.8 - 3.3 K/cumm [facility] Comment:Testing performed by : [facility], [address] [place] [phone] Monocyte abs 0.2 0.2 - 0.8 K/cumm [facility] Comment:Testing performed by : [facility], [address] [place] [phone] Eosinophil abs 0.0 0.0 - 0.5 K/cumm [facility] Comment:Testing performed by : [facility], [address] [place] [phone] Basophil abs 0.0 0.0 - 0.1 K/cumm [facility] Comment:Testing performed by : [facility], [address] [place] [phone] Neutrophil pct 87.6 % [facility] Comment: Interpretive Data Percent cell count reference ranges are not reported, since discordance with absolute values may lead to misinterpretation of CBC data. Current Interpretive Data was last revised on 2017. Testing performed by: [facility], [address] [place] [phone] Lymphocyte pct 9.9 % [facility] Comment: Interpretive Data Percent cell count reference ranges are not reported, since discordance with absolute values may lead to misinterpretation of CBC data. Current Interpretive Data was last revised on 2017. Testing performed by: [facility], [address] [place] [phone] Monocyte pct 2.2 % [facility] Comment: Interpretive Data Percent cell count reference ranges are not reported, since discordance with absolute values may lead to misinterpretation of CBC data. Current Interpretive Data was last revised on 2017. Testing performed by: [facility], [address] [place] [phone] Eosinophil pct 0.0 % [facility] Comment: Interpretive Data Percent cell count reference ranges are not reported, since discordance with absolute values may lead to misinterpretation of CBC data. Current Interpretive Data was last revised on 2017. Testing performed by: [facility], [address] [place] [phone] Basophil pct 0.3 % [facility] Comment: Interpretive Data Percent cell count reference ranges are not reported, since discordance with absolute values may lead to misinterpretation of CBC data. Current Interpretive Data was last revised on 2017. Testing performed by: [facility], [address] [place] [phone] Blood 06/10/2024 8:33 AM REPORTING SPECIALIST 06/10/2024 8:35 AM REPORTING SPECIALIST us Adama Adkins MD LAB BLOOD ORDERABLES Final Resul t [facility] Department [place] [address] * CBC with auto differential (06/10/2024 8:33 AM REPORTING SPECIALIST) WBC 7.8 3.8 - 9.9 K/cumm Comment:Testing performed by : [facility], [address] [place] [address] Hgb 13.4 11.9 - 15.5 g/dL [facility] Comment:Testing performed by : [facility], [address] [place] [address] Hct 40.8 35.6 - 45.5 % [facility] Comment:Testing performed by : [facility], [address] [place] [address] Plt 263 150 - 400 K/cumm [facility] Comment:Testing performed by : [facility], [address] [place] [address] MPV 8.5 6.8 - 10.4 fL [facility] Comment:Testing performed by : [facility], [address] [place] [address] RBC 4.31 3.90 - 5.20 M/cumm [facility] Comment:Testing performed by : [facility], [address] [place] [address] MCV 94.6 81.3 - 96.4 fL [facility] Comment:Testing performed by : [facility], [address] [place] [address] MCH 31.1 27.1 - 33.3 pg [facility] Comment:Testing performed by : [facility], [address] [place] [address] MCHC 32.9 32.3 - 35.7 g/dL [facility] Comment:Testing performed by : [facility], [address] [place] [address] RDW CV 13.4 11.1 - 14.9 % [facility] Comment:Testing performed by : [facility], [address] [place] [address] NRBC abs 0.00 0.00 - 0.01 K/cumm [facility] Comment:Testing performed by : [facility], [address] [place] [address] Blood 06/10/2024 8:33 AM REPORTING SPECIALIST 06/10/2024 8:35 AM REPORTING SPECIALIST us Adama Adkins MD LAB BLOOD ORDERABLES Final Resul t [facility] Department of Laboratories [place] [phone] * Comprehensive metabolic panel (06/10/2024 8:33 AM REPORTING SPECIALIST) Sodium 142 135 - 145 mmol/L Potassium, pl 3.9 3.3 - 4.9 mmol/L [facility] Chloride 107 97 - 110 mmol/L [facility] CO2 27 22 - 32 mmol/L [facility] Anion gap 8 2 - 15 mmol/L [facility] BUN 13 6 - 25 mg/dL [facility] Creatinine 0.80 0.60 - 1.10 mg/dL [facility] Glucose 180 70 - 199 mg/dL [facility] Comment: Interpretive Data Fasting glucose >/= 126 [...] Calcium 9.5 8.5 - 10.3 mg/dL [facility] Bilirubin, total 0.2 0.1 - 1.2 mg/dL [facility] Protein, pl 7.4 6.5 - 8.5 g/dL [facility] Albumin 3.8 3.5 - 5.0 g/dL [facility] Alk phos 73 40 - 130 Units/L [facility] ALT 26 7 - 45 Units/L [facility] AST 20 10 - 45 Units/L [facility] Blood 06/10/2024 8:33 AM REPORTING SPECIALIST 06/10/2024 8:36 AM REPORTING SPECIALIST us Adama Fa'christiano BRYANT LAB BLOOD ORDERABLES Final Resul t [facility] Department [place] [address] * XR Chest 1 View (06/08/2024 9:28 AM REPORTING SPECIALIST) Anatomical Region Laterality Modality Body, Chest N/A Computed Radiogr aphy 06/08/2024 9:48 AM REPORTING SPECIALIST Impressions 06/08/2024 9:48 AM REPORTING SPECIALIST Right internal jugular port catheter tip at superior cavoatrial junction. Normal heart size and mediastinal contours. ??Small band like opacity in the left upper lung with no correlate on CT 06/04/2024 may represent atelectasis. ??No pleural effusion or pneumothorax. Electronically signed by: Nahum Fisher M.D. Narrative 06/08/2024 9:48 AM REPORTING SPECIALIST EXAMINATION: 1 view chest radiograph COMPARISON: None [...] Fluoroscopy < 1 Hour (06/08/2024 8:40 AM REPORTING SPECIALIST) Narrative [facility] - 06/08/2024 8:41 AM REPORTING SPECIALIST The images from this study are not interpreted by Radiology. ??Please refer to the physician's procedure / OR operative note. Kendal Malhotra MD PhD IMG FLUOROSCOPY PROCEDURES Final Result [facility] * Peripheral IV Catheter (06/08/2024 7:54 AM REPORTING SPECIALIST) Narrative Travon Soto MD - 06/08/2024 7:54 AM REPORTING SPECIALIST Travon Soto MD ? 06/08/2024 ??7:55 AM [...] patient tolerated procedure well with no complications Result [facility] Jorge Thompson MD ANESTHESIA ORDERABLES Final Result * Airway (06/08/2024 7:53 AM REPORTING SPECIALIST) Narrative Travon Soto MD - 06/08/2024 7:53 AM REPORTING SPECIALIST Travon Soto MD ? 06/08/2024 ??7:54 AM [...] between attempts: none Planned trial extubation: yes us Jorge Thompson MD ANESTHESIA ORDERABLES Final Result * NM Bone Imaging Whole Body (06/04/2024 2:21 PM REPORTING SPECIALIST) Anatomical Region Laterality Modality N/A Nuclear Medicine 06/04/2024 4:01 PM REPORTING SPECIALIST Impressions 06/04/2024 4:19 PM REPORTING SPECIALIST No evidence of osseous metastatic disease. Dictated by: Henrique Mendez MD PHD The radiology attending physician has personally reviewed this study, and had reviewed and/or edited this written report and agrees with it. Electronically signed by: Sidney Hallman M.D. Narrative 06/04/2024 4:19 PM REPORTING SPECIALIST EXAMINATION: ??BONE SCINTIGRAPHY (WHOLE-BODY) DATE OF STUDY: [...] Abdomen Pelvis W Contrast (06/04/2024 12:26 PM REPORTING SPECIALIST) Anatomical Region Laterality Modality Body N/A Computed Tomogra phy 06/04/2024 12:3 8 PM REPORTING SPECIALIST Impressions 06/04/2024 12:38 PM REPORTING SPECIALIST 1. ??Known primary right breast malignancy is not well delineated on CT. ??Otherwise, no specific evidence of metastatic disease in the chest, abdomen or pelvis. Electronically signed by: Rakesh Eisenberg M.D. Narrative 06/04/2024 12:38 PM REPORTING SPECIALIST EXAMINATION: CT of the chest, abdomen and [...] Re sult * eGFR (06/04/2024 11:03 AM REPORTING SPECIALIST) eGFR 83 >=60 mL/min/1. 73 m2 Comment: [...] reviewed 2021. Blood 06/04/2024 11:0 3 AM REPORTING SPECIALIST 06/04/2024 11:12 AM REPORTING SPECIALIST us Adama Adkins MD LAB BLOOD ORDERABLES Final Resul t [facility] Department [place] [address] * Differential, auto (06/04/2024 11:03 AM REPORTING SPECIALIST) Neutrophil abs 4.9 1.5 - 6.5 K/cumm Imm gran abs 0.0 0.0 - 0.1 K/cumm [facility] Lymphocyte abs 1.9 0.8 - 3.3 K/cumm [facility] Monocyte abs 0.7 0.2 - 0.8 K/cumm [facility] Eosinophil abs 0.2 0.0 - 0.5 K/cumm [facility] Basophil abs 0.0 0.0 - 0.1 K/cumm [facility] Neutrophil pct 63.0 % [facility] Comment: Interpretive Data Percent cell count reference ranges are not reported, since discordance with absolute values may lead to misinterpretation of CBC data. Current Interpretive Data was last revised on 2017. Imm gran pct 0.3 % [facility] Comment: Interpretive Data Percent cell count reference ranges are not reported, since discordance with absolute values may lead to misinterpretation of CBC data. Current Interpretive Data was last revised on 2017. Lymphocyte pct 23.9 % [facility] Comment: Interpretive Data Percent cell count reference ranges are not reported, since discordance with absolute values may lead to misinterpretation of CBC data. Current Interpretive Data was last revised on 2017. Monocyte pct 9.2 % [facility] Comment: Interpretive Data Percent cell count reference ranges are not reported, since discordance with absolute values may lead to misinterpretation of CBC data. Current Interpretive Data was last revised on 2017. Eosinophil pct 3.1 % [facility] Comment: Interpretive Data Percent cell count reference ranges are not reported, since discordance with absolute values may lead to misinterpretation of CBC data. Current Interpretive Data was last revised on 2017. Basophil pct 0.5 % [facility] Comment: Interpretive Data Percent cell count reference ranges are not reported, since discordance with absolute values may lead to misinterpretation of CBC data. Current Interpretive Data was last revised on 2017. Blood 06/04/2024 11:0 3 AM REPORTING SPECIALIST 06/04/2024 11:11 AM REPORTING SPECIALIST Adama Adkins MD LAB BLOOD ORDERABLES Final Resul t Performing Organization Address [facility] Co de Phone Number [facility] Department [place] [address] * CBC with auto differential (06/04/2024 11:03 AM REPORTING SPECIALIST) [facility] WBC 7.8 3.8 - 9.9 K/cumm Hgb 14.5 11.9 - 15.5 g/dL [facility] Hct 43.8 35.6 - 45.5 % [facility] Plt 272 150 - 400 K/cumm [facility] MPV 10.4 9.1 - 12.3 fL [facility] RBC 4.63 3.90 - 5.20 M/cumm [facility] MCV 94.6 81.3 - 96.4 fL [facility] MCH 31.3 27.1 - 33.3 pg [facility] MCHC 33.1 32.3 - 35.7 g/dL [facility] RDW CV 12.8 11.1 - 14.9 % [facility] RDW SD 43.8 35.7 - 48.1 fL [facility] NRBC abs 0.00 0.00 - 0.01 K/cumm [facility] Blood 06/04/2024 11:0 3 AM REPORTING SPECIALIST 06/04/2024 11:11 AM REPORTING SPECIALIST Adama Adkins MD LAB BLOOD ORDERABLES Final Resul t Performing Organization Address [facility] Co de Phone Number [facility] Department [place] [address] * Comprehensive metabolic panel (06/04/2024 11:03 AM REPORTING SPECIALIST) Pathologist [facility] Sodium 142 135 - 145 mmol/L Potassium, pl 4.9 3.3 - 4.9 mmol/L [facility] Comment:Hemolyzed; Potassium value may be falsely elevated by as much as 0.3-0.5 mmol/L. Suggest redraw and reanalysis. Chloride 105 97 - 110 mmol/L [facility] CO2 30 22 - 32 mmol/L [facility] Anion gap 7 2 - 15 mmol/L [facility] BUN 14 6 - 25 mg/dL [facility] Creatinine 0.86 0.60 - 1.10 mg/dL [facility] Glucose 96 70 - 199 mg/dL [facility] Comment: Interpretive Data Fasting glucose >/= 126 [...] 2022. Calcium 9.7 8.5 - 10.3 mg/dL [facility] Bilirubin, total 0.4 0.1 - 1.2 mg/dL [facility] Protein, pl 7.7 6.5 - 8.5 g/dL [facility] Albumin 4.0 3.5 - 5.0 g/dL [facility] Alk phos 84 40 - 130 Units/L [facility] ALT 32 7 - 45 Units/L [facility] AST 33 10 - 45 Units/L [facility] Comment:Hemolyzed; result ma y be falsely elevated Blood 06/04/2024 11:0 3 AM REPORTING SPECIALIST 06/04/2024 11:11 AM REPORTING SPECIALIST us Adamakian Adkins MD LAB BLOOD ORDERABLES Final Resul t [facility] [place] [address] * Screening Mammogram Bilateral W Dannie (04/22/2024 3:57 PM CDT) Anatomical Region Laterality Modality Breast Bilateral Mammography Narrative 04/23/2024 1:05 PM CDT Mammogram Technique: Bilateral Digital Breast Tomosynthesis, Bilateral C-view 2D Screening mammogram. ??Views obtained: ??bilateral craniocaudal and bilateral mediolateral oblique. ??Computer Aided Detection was performed. Mammogram Findings: The present examination has been compared to prior imaging studies performed at [facility] on 09/21/2019, 10/11/2019 and 03/07/2023. There [...] compared to prior imaging studies performed at [facility] on 09/21/2019, 10/11/2019 and 03/07/2023. There [...] Most Recently Relevant to Health Maintenance Insurance [facility] ACCESS [facility] CHOICE PLUS [employer] ACCESS Care Teams Garage Helper Relationship Specialty Start Date End Date Daljit Wiley MD PCP - General Family Medicine 08/18/18
--- OUTSIDE RECORDS SUMMARY | 2024-08-24 20:25 | XMS_ITS | Patient Health Summary ---
Author Organization [facility] Address [address] [place] [address] Care Team Providers Care Electrical Worker Name Role Phone Unavailable Primary Care Provider Unavailabl e Note from [facility],non-owned Affiliates and Associated Physician Practices is amultiple site organization consisting of ambulatory clinics and hospital sitesin [place], [place], [place] and [place]. This disclosure is being madepursuant to the Care Everywhere program and may not contain all information available regarding this patient. Last updated 18.[facility] Allergies No known active allergies Medications Be aware that medications may not be up to date on this document. Always verify current medications with the patient. No known medications Active Problems No known active problems Immunizations * TDAP (7yrs+)(Given 10/12/2017) Social History Tobacco Use Types Packs/Day Years [...]
--- OUTSIDE RECORDS SUMMARY | 2024-08-24 20:25 | XMS_ITS | Referral Summary ---
Author Organization [facility] Address [address] [place] [address] Care Team Providers Care Transportation Engineering Technician Name Role Phone Unavailable Primary Care Provider Unavailabl e Source Comments [facility],non-owned Affiliates and Associated Physician Practices is amultiple site organization consisting of ambulatory clinics and hospital sitesin [place], [place], [place] and [place]. This disclosure is being madepursuant to the Care Everywhere program and may not contain all information available regarding this patient. Last updated 18.[facility] [employer] Allergies No known active allergies Medications Be aware that medications may not be up to date on this document. Always verify current medications with the patient. No known medications Active Problems No known active problems Immunizations Name Administration Dates Next Due TDAP (7yrs+) 10/12/2017 Social History Tobacco Use Types Packs/Day [...] 10/12/2017 3:00 PM CDT Plan of Treatment Not on file
--- OUTSIDE RECORDS SUMMARY | 2024-08-24 20:25 | XMS_ITS ---
Author Organization [facility] Address [address] [place] [id number] Care Team Providers Care Outreach Coordinator Name Role Phone Daljit Wiley MD Primary Care Provider [phone] Active Problems Problem Noted Date Diagnosed Date Malignant neoplasm of upper- outer quadrant of right breast in female, estrogen receptor negative 05/10/2024 Cancer Staging:Clinical:Stage Unknown(cT2, cNX, cM0, G3, ER-, AK-, HER2+) - Unsigned Prevention of chemotherapy-induced neutropenia 0 09/22/2019 Fibrocystic breast changes of both breasts 08/18 History of abnormal mammogram 06/29/2018 Current Oncology Plans [facility]: (DOCEtaxel / CARBOplatin / Trastuzumab / Pertuzumab) 21 Day Cycles - Breast* Plan Start Date:06/02/2024 Plan Provider:Adama Adkins MD Linked Problems Malignant neoplasm of upper- outer quadrant of right breast in female, estrogen receptor negative (HCC)Prevention of chemotherapy-induced neutropenia Treatment Medications Current Day (Day 1 , Cycle 5 - Planned for 09/02/2024) Next Day (Day 1, Cycle 6 - Planned for 09/23/2024) CARBOplatin (PARAPLATIN)CARBOplatin (PARAPLATIN) IVPB in 250 mLdexAMETHasone (DECADRON)DOCEtaxel (TAXOTERE)DOCEtaxel (TAXOTERE) IVPB in 250 mL (vial 20mg/mL)pertuzumab (PERJETA)pertuzumab (PERJETA) IVPBtrastuzumab (HERCEPTIN)trastuzumab (HERCEPTIN) IVPB CARBOplatin (PARAPLATIN) 900 mg in sodium chloride 0.9% 250 mL IVPB (By AUC)DOCEtaxeL (TAXOTERE) 182 mg in sodium chloride 0.9% (PVC-FREE) 250 mL IVPBpertuzumab (PERJETA) 420 mg in sodium chloride 0.9% 250 mL IVPBtrastuzumab (HERCEPTIN) 713 mg in sodium chloride 0.9% 250 mL IVPB CARBOplatin (PARAPLATIN) 900 mg in sodium chloride 0.9% 250 mL IVPB (By AUC)DOCEtaxeL (TAXOTERE) 182 mg in sodium chloride 0.9% (PVC-FREE) 250 mL IVPBpertuzumab (PERJETA) 420 mg in sodium chloride 0.9% 250 mL IVPBtrastuzumab (HERCEPTIN) 713 mg in sodium chloride 0.9% 250 mL IVPB Past Plans No past plan information found. Radiation Treatments * No radiation treatments are documented for this patient in [facility]. Treatments may have been administered in another system. Lifetime Dose Tracking * Chemical Lifetime Dose Automatic Entry Manual Entr y Fluoro Time 0.27 minutes 0.27 minutes 0 minutes Air kerma at the reference point (Ka,r) 3.09 mGy 3 .09 mGy 0 mGy DLP 1,841 mGycm 1,841 mGycm 0 mGycm
[2024-08-24 20:37] VITALS: BP 126/67; PULSE 121; RESP 18; TEMP 36.5; O2SAT 95
[2024-08-24 21:01] LABS: Basophils Absolute Auto 0.1 K/mm3 (0.0-0.1); Basophils Percent Auto 0.6 % (0.2-1.2); Hematocrit 31.5 % (37.0-47.0); Hemoglobin 10.5 g/dL (12.0-15.0); Immature Granulocyte Absolute 0.31 K/mm3 (0.00-0.031); Immature Granulocyte Percent A 2.6 % (0-0.5); Lymphocytes Absolute Auto 0.71 K/mm3 (0.9-3.2); Lymphocytes Percent Auto 6.1 % (18.3-44.2); Mean Corpuscular HGB Conc 33.3 g/dl (32-36); Mean Corpuscular Volume 101.9 fl (80-100); Mean Platelet Volume 9.1 fl (7.4-10.4); Monocytes Absolute Auto 1.1 K/mm3 (0.1-0.6); Monocytes Percent Auto 9.4 % (2.6-8.5); Neutrophils Absolute Auto 9.5 K/mm3 (1.3-6.7); Neutrophils Percent Auto 81.3 % (45.5-73.1); Nucleated Red Blood Cells Perc 0.2 % (0.0-0.2); Platelet Count Result 125 k/mm3 (150-375); Red Blood Count 3.09 M/mm3 (4.2-5.4); Red Cell Distribution Width 17.2 % (11.5-14.5); White Blood Count 11.7 K/mm3 (4.5-10.0)
[2024-08-24 21:13] LABS: Alanine Aminotransferase 42 U/L (6-35); Albumin Level 3.6 g/dL (3.5-5.1); Alkaline Phosphatase 109 U/L (38-126); Anion Gap 8 mmol/L (4-12); Aspartate Amino Transferase 30 U/L (14-36); Bilirubin,Total 0.5 mg/dL (0.2-1.3); Blood Urea Nitrogen 8 mg/dL (7-17); Calcium 8.8 mg/dL (8.4-10.2); Carbon Dioxide 25 mmol/L (22-30); Chloride 101 mmol/L (98-107); Estimated CRCL calculation 113 ml/min; Estimated Glomerular Filt Rate > 60; Glucose 114 mg/dL (65-110); Potassium 3.5 mmol/L (3.4-5.0); Sodium 134 mmol/L (137-145)
[2024-08-24 21:37] LABS: Influenza A QL RT-PCR Positive (Negative); Influenza B QL RT-PCR Negative (Negative); RSV RNA, RT-PCR Negative (Negative); SARS-CoV-2 RNA PCR Negative (Negative)
[2024-08-24 23:15] VITALS: BP 119/61; PULSE 99; RESP 18; TEMP 38.1; O2SAT 99
[2024-08-24 23:37] LABS: Add Urine Microscopic? YES; Appearance Urine Clear (Clear); Bacteria Urine None Seen /hpf; Bilirubin Urine Negative (Negative); Blood Urine Trace (Negative); Color Urine Yellow (Yellow); Glucose Urine UA Negative (Negative); Ketones Urine Trace mg/dL (Negative); Leukocyte Esterase Ur Trace LEU/UL (Negative); Nitrate Urine Negative (Negative); Protein Urine Trace mg/dL (Negative); Specific Grav Ur 1.022 (1.001-1.035); Squamous Epithelial Cell Urine Occasional /hpf (Few); Urobilinogen Urine 0.2 mg/dL (<2.0); WBC Urine 0-5 /hpf (0-3)
--- OUTSIDE RECORDS SUMMARY | 2024-08-25 00:35 | XMS_ITS ---
Author Organization [facility] Address [address] [place] [id number] Care Team Providers Care Personal Shopper Name Role Phone Daljit Wiley MD Primary Care Provider [phone] Active Problems Problem Noted Date Diagnosed Date Malignant neoplasm of upper- outer quadrant of right breast in female, estrogen receptor negative 05/10/2024 Cancer Staging:Clinical:Stage Unknown(cT2, cNX, cM0, G3, ER-, MA-, HER2+) - Unsigned Prevention of chemotherapy-induced neutropenia [...] treatments are documented for this patient in [facility]. Treatments may have been administered in another system. Lifetime Dose Tracking * Chemical Lifetime Dose Automatic Entry Manual Entr y Fluoro Time 0.27 minutes 0.27 minutes 0 minutes Air kerma at the reference point (Ka,r) 3.09 mGy 3 .09 mGy 0 mGy DLP 1,841 mGycm 1,841 mGycm 0 mGycm
--- OUTSIDE RECORDS SUMMARY | 2024-08-25 00:36 | XMS_ITS | Clinical Summary ---
Author Organization [facility] Address [address] [place] [address] Care Team Providers Care Machine Tank Operator Name Role Phone Unavailable Primary Care Provider Unavailabl e Source Comments [facility],non-owned Affiliates and Associated Physician Practices is amultiple site organization consisting of ambulatory clinics and hospital sitesin [place], [place], [place] and [place]. This disclosure is being madepursuant to the Care Everywhere program and may not contain all information available regarding this patient. Last updated 18.[facility] Allergies No known active allergies Medications Be [...]
--- OUTSIDE RECORDS SUMMARY | 2024-08-25 00:36 | XMS_ITS | Referral Summary ---
Author Organization [facility] Address [address] [place] [phone] Care Team Providers Care Scheduling Assistant Name Role Phone Daljit Wiley MD Primary Care Provider Encounters Date Type Department Care Team Description 08/12/2024 12:00 PM CANDLEMAKING LABORER Infusion [facility] - Infusion [address] [place] [phone] Prevention of chemotherapy-induced neutropenia (Primary Dx); Malignant 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 in female, estrogen receptor negative (HCC) 08/12/2024 10:00 AM CANDLEMAKING LABORER Clinical Support [facility] - Lab Collection [address] [place] [address] Malignant 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 in female, estrogen receptor negative (HCC); Prevention of chemotherapy-induced neutropenia 08/12/2024 11:00 AM CANDLEMAKING LABORER Office Visit [facility] Oncology [address] [place] [phone] Adama Adkins MD Prevention of chemotherapy-induced neutropenia (Primary Dx); Malignant 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 in female, estrogen receptor negative (HCC) 07/22/2024 10:45 AM CANDLEMAKING LABORER Clinical Support [facility] - Lab Collection [address] [place] [address] Malignant 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 in female, estrogen receptor negative (HCC); Prevention of chemotherapy-induced neutropenia 07/22/2024 1:30 PM CANDLEMAKING LABORER Infusion [facility] - Infusion [address] [facility] Floor 5 [place] [address] Prevention of chemotherapy-induced neutropenia (Primary Dx); Malignant 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 in female, estrogen receptor negative (HCC) 07/22/2024 11:45 AM CANDLEMAKING LABORER Office Visit [facility] Oncology [address] [place] [address] Floor 8 [place] [phone] Adama Adkins MD Encounter for monitoring cardiotoxic drug therapy (Primary Dx); Malignant 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 in female, estrogen receptor negative (HCC); Prevention of chemotherapy-induced neutropenia 07/01/2024 8:45 AM CANDLEMAKING LABORER Clinical Support [facility] - Lab Collection [facility] Floor 6 [place] [address] Malignant 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 in female, estrogen receptor negative (HCC); Prevention of chemotherapy-induced neutropenia 07/01/2024 10:30 AM CANDLEMAKING LABORER Infusion [facility] - Infusion [address] [place] [address] Floor 6 [place] [address] Prevention of chemotherapy-induced neutropenia (Primary Dx); Malignant 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 in female, estrogen receptor negative (HCC) 07/01/2024 9:30 AM CANDLEMAKING LABORER Office Visit [facility] Oncology [address] [place] [address] Floor 8 [place] [phone] Deni Licona PA Prevention of chemotherapy-induced neutropenia (Primary Dx); Malignant 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 in female, estrogen receptor negative (HCC) 06/22/2024 8:00 AM CANDLEMAKING LABORER Office Visit [facility] Surgery [facility] 6th [place] [address] [place] [address] Connie Hayes MD Malignant 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 in female, estrogen receptor negative (HCC) 06/15/2024 Telephone [facility] Oncology [address] [place] [address] Floor 8 [place] [address] Allyssa Neumann RN 06/10/2024 Orders Only [facility] Oncology [address] [place] [address] Floor 8 [place] [address] Adama Adkins MD Malignant 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 in female, estrogen receptor negative (HCC) (Primary Dx) 06/10/2024 8:15 AM CANDLEMAKING LABORER Clinical Support [facility] - Lab Collection [facility] 5 [place] [address] Malignant 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 in female, estrogen receptor negative (HCC) 06/10/2024 10:00 AM CANDLEMAKING LABORER Infusion [facility] - Infusion [address] [facility] Floor 6 [place] [address] Prevention of chemotherapy-induced neutropenia (Primary Dx); Malignant 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 in female, estrogen receptor negative (HCC) 06/10/2024 7:45 AM CANDLEMAKING LABORER Clinical Support [facility] Oncology Lab [address] [place] [address] 5 [place] [address] Malignant 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 in female, estrogen receptor negative (HCC); Prevention of chemotherapy-induced neutropenia 06/10/2024 8:45 AM CANDLEMAKING LABORER Office Visit [facility] Oncology [address] [place] [address] 8 [place] [address] Adama Adkins MD Malignant 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 in female, estrogen receptor negative (HCC) (Primary Dx); Prevention of chemotherapy-induced neutropenia 06/08/2024 9:07 AM CANDLEMAKING LABORER - 06/08/2024 11:59 PM CANDLEMAKING LABORER Hospital Encounter [facility] ([facility]) [address] [place] [address] Malignant 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 in female, estrogen receptor negative (HCC) Discharge Disposition: Discharge to home or self care 06/08/2024 7:30 AM CANDLEMAKING LABORER - 06/08/2024 8:45 AM CANDLEMAKING LABORER Surgery [facility] Operating [facility] ([facility]) [address] [place] [address] Kendal Malhotra MD PhD INSERTION PORT A CATH 06/08/2024 7:30 AM CANDLEMAKING LABORER Anesthesia Event [facility] ([facility]) [address] [place] [address] Jorge Luna MD Dolnick, Karen Leigh, NP 06/08/2024 5:32 AM CANDLEMAKING LABORER - 06/08/2024 9:57 AM CANDLEMAKING LABORER Hospital Encounter [facility] Operating [facility] ([facility]) [address] [place] [address] Aft, Kendal Martinez MD PhD Malignant 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 in female, estrogen receptor negative (HCC) (Primary Dx) Discharge Disposition: Discharge to home or self care 06/04/2024 12:30 PM CANDLEMAKING LABORER Lab [facility] ([facility]) [address] [place] [phone] Malignant 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 in female, estrogen receptor negative (HCC); Prevention of chemotherapy-induced neutropenia 06/04/2024 10:56 AM CANDLEMAKING LABORER - 06/04/2024 11:59 PM CANDLEMAKING LABORER Hospital Encounter [facility] ([facility]) [address] [place] [address] Malignant 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 in female, estrogen receptor negative (HCC) Discharge Disposition: Discharge to home or self care 06/04/2024 10:56 AM CANDLEMAKING LABORER - 06/04/2024 11:59 PM CANDLEMAKING LABORER Hospital Encounter [facility] ([facility]) [address] [place] [address] Discharge Disposition: Discharge to home or self care 06/04/2024 10:56 AM CANDLEMAKING LABORER - 06/04/2024 11:59 PM CANDLEMAKING LABORER Hospital Encounter [facility] ([facility]) [address] [place] [address] Malignant 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 in female, estrogen receptor negative (HCC) Discharge Disposition: Discharge to home or self care 06/02/2024 Orders Only [facility] Oncology [facility] 8 [place] [address] Adama Adkins MD Malignant 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 in female, estrogen receptor negative (HCC) (Primary Dx); Prevention of chemotherapy-induced neutropenia; Bone pain due to G-CSF; Chemotherapy induced diarrhea; Encounter for care related to vascular access port; Encounter for antineoplastic chemotherapy 05/28/2024 Orders Only [facility] Oncology [address] [place] [phone] Adama Adkins MD 05/27/2024 Telephone [facility] Specialty Services [address] [place] [address] Steffanie Rodriguez RN GI Preprocedure 05/25/2024 Orders Only [facility] Surgery [address] [facility] Floor 8 [place] [address] Aft, Kendal Martinez MD PhD Malignant 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 in female, estrogen receptor negative (HCC) (Primary Dx) from Last 3 Months Allergies No known [...] Cancer Staging:Clinical:Stage Unknown(cT2, cNX, cM0, G3, ER-, WA-, HER2+) - Unsigned Prevention of chemotherapy-induced neutropenia [...] on file Legal Sex Female 5:54 AM CANDLEMAKING LABORER Gender Identity Not on file Sexual Orientation Not on file Last Filed Vital Signs Vital Sign Reading Time Taken Comments Blood Pressure 119/82 08/12/2024 11:05 AM CANDLEMAKING LABORER Pulse 74 08/12/2024 11:05 AM CANDLEMAKING LABORER Temperature 36.2 ??C (97.2 ??F) 08/12/2024 11:[address] Respiratory Rate 18 08/12/2024 11:05 AM CANDLEMAKING LABORER Oxygen Saturation 97% 08/12/2024 11:05 AM CANDLEMAKING LABORER Inhaled Oxygen Concentration - - Weight 124.3 kg (274 lb) 08/12/2024 11:05 AM CANDLEMAKING LABORER Height 177.8 cm (5' 10 ) 08/12/2024 11:05 AM CANDLEMAKING LABORER Body Mass Index 39.31 08/12/2024 11:05 AM CANDLEMAKING LABORER Plan of Treatment Not on file Medical Devices Implanted Type Area Incinerator Plant General Supervisor Device Identifier Shelf Expiration Date Model / Serial / Lot Shelf[employer] Partnership Eviva 13cm Identifier Biopsy Site [id number] - [id number] Implanted:Qty: 1 on 05/03/2024 at [facility] [employer] [id number] 01/12/2025 [facility]13 / / [id number] [place] [facility] Powerport Clearvue Airguard 8fr 1 Lumen Lightweight Intermediate Latex Free [id number] - [id number] - [id number] Implanted:Qty: 1 on 06/08/2024 by ChatotKendal MD PhD at [facility] [employer] [facility] [id number] 06/19/2025 [id number] / [id number] / [id number] Procedures Procedure Name Priority Date/Time Associated Diagnosis Comments EGFR STAT 08/12/2024 10:35 AM CANDLEMAKING LABORER Malignant 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 in female, estrogen receptor negative (HCC) Prevention of chemotherapy-induc ed neutropenia DIFFERENTIAL AUTO STAT 08/12/2024 10: 35 AM CANDLEMAKING LABORER Malignant 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 in female, estrogen receptor negative (HCC) Prevention of chemotherapy-induc ed neutropenia CBC WITH AUTO DIFFERENTIAL STAT 08/12/2024 10:35 AM CANDLEMAKING LABORER Malignant 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 in female, estrogen receptor negative (HCC) Prevention of chemotherapy-induc ed neutropenia COMPREHENSIVE METABOLIC PANEL STAT 08/12/2024 10:35 AM CANDLEMAKING LABORER Malignant 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 in female, estrogen receptor negative (HCC) Prevention of chemotherapy-induc ed neutropenia EGFR STAT 07/22/2024 11:11 AM CANDLEMAKING LABORER Malignant 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 in female, estrogen receptor negative (HCC) Prevention of chemotherapy-induc ed neutropenia DIFFERENTIAL AUTO STAT 07/22/2024 11: 11 AM CANDLEMAKING LABORER Malignant 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 in female, estrogen receptor negative (HCC) Prevention of chemotherapy-induc ed neutropenia CBC WITH AUTO DIFFERENTIAL STAT 07/22/2024 11:11 AM CANDLEMAKING LABORER Malignant 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 in female, estrogen receptor negative (HCC) Prevention of chemotherapy-induc ed neutropenia COMPREHENSIVE METABOLIC PANEL STAT 07/22/2024 11:11 AM CANDLEMAKING LABORER Malignant 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 in female, estrogen receptor negative (HCC) Prevention of chemotherapy-induc ed neutropenia EGFR STAT 07/01/2024 9:10 AM CANDLEMAKING LABORER Malignant 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 in female, estrogen receptor negative (HCC) Prevention of chemotherapy-induc ed neutropenia DIFFERENTIAL AUTO STAT 07/01/2024 9:1 0 AM CANDLEMAKING LABORER Malignant 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 in female, estrogen receptor negative (HCC) Prevention of chemotherapy-induc ed neutropenia CBC WITH AUTO DIFFERENTIAL STAT 07/01/2024 9:10 AM CANDLEMAKING LABORER Malignant 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 in female, estrogen receptor negative (HCC) Prevention of chemotherapy-induc ed neutropenia COMPREHENSIVE METABOLIC PANEL STAT 07/01/2024 9:10 AM CANDLEMAKING LABORER Malignant 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 in female, estrogen receptor negative (HCC) Prevention of chemotherapy-induc ed neutropenia EGFR Routine 06/10/2024 8:33 AM CANDLEMAKING LABORER Malignant 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 in female, estrogen receptor negative (HCC) DIFFERENTIAL AUTO Routine 06/10/2024 8:3 3 AM CANDLEMAKING LABORER Malignant 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 in female, estrogen receptor negative (HCC) CBC WITH AUTO DIFFERENTIAL Routine 06/10/2024 8:33 AM CANDLEMAKING LABORER Malignant 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 in female, estrogen receptor negative (HCC) COMPREHENSIVE METABOLIC PANEL Routine 06/10/2024 8:33 AM CANDLEMAKING LABORER Malignant 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 in female, estrogen receptor negative (HCC) XR CHEST 1 VIEW Schedule Routine, Read Routine (OP Routine) 06/08/2024 9:28 AM CANDLEMAKING LABORER Malignant 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 in female, estrogen receptor negative (HCC) FL FLUOROSCOPY < 1 HOUR IP Routine 06/08/2024 8:40 AM CANDLEMAKING LABORER PERIPHERAL LINE Routine 06/08/2024 7:54 AM CANDLEMAKING LABORER ANESTHESIA INTUBATION Routine 06/08/2024 7:53 AM CANDLEMAKING LABORER INSERTION PORT A CATH 06/08/2024 7:30 AM CANDLEMAKING LABORER Malignant 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 in female, estrogen receptor negative (HCC) NM BONE IMAGING WHOLE BODY Schedule Routine, Read Routine (OP Routine) 06/04/2024 2:21 PM CANDLEMAKING LABORER Malignant 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 in female, estrogen receptor negative (HCC) CT CHEST ABDOMEN PELVIS W CONTRAST Schedule Routine, Read Routine (OP Routine) 06/04/2024 12:26 PM CANDLEMAKING LABORER Malignant 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 in female, estrogen receptor negative (HCC) EGFR STAT 06/04/2024 11:03 AM CANDLEMAKING LABORER Malignant 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 in female, estrogen receptor negative (HCC) Prevention of chemotherapy-induc ed neutropenia DIFFERENTIAL AUTO STAT 06/04/2024 11: 03 AM CANDLEMAKING LABORER Malignant 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 in female, estrogen receptor negative (HCC) Prevention of chemotherapy-induc ed neutropenia CBC WITH AUTO DIFFERENTIAL STAT 06/04/2024 11:03 AM CANDLEMAKING LABORER Malignant 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 in female, estrogen receptor negative (HCC) Prevention of chemotherapy-induc ed neutropenia COMPREHENSIVE METABOLIC PANEL STAT 06/04/2024 11:03 AM CANDLEMAKING LABORER Malignant neoplasm of upper-outer quadrant of right [...] Maintenance Results * eGFR (08/12/2024 10:35 AM CANDLEMAKING LABORER) eGFR >90 >=60 mL/min/1. 73 m2 Comment: [...] reviewed 2021. Blood 08/12/2024 10:3 5 AM CANDLEMAKING LABORER 08/12/2024 10:49 AM CANDLEMAKING LABORER us Adama Fa'christiano BRYANT LAB BLOOD ORDERABLES Final Resul t [facility] Department [place] [address] * (ABNORMAL) Differential, auto (08/12/2024 10:35 AM CANDLEMAKING LABORER) Neutrophil abs 12.6(H) 1.5 - 6.5 K/cumm Comment:Testing performed by : [facility] Cancer [facility] Heme [facility], [facility] [place] [address] Lymphocyte abs 1.7 0.8 - 3.3 K/cumm [facility] Comment:Testing performed by : [facility] Heme Lab, [facility] [place] [address] Monocyte abs 1.6(H) 0.2 - 0.8 K/cumm [facility] Comment:Testing performed by : [facility] Heme [facility], [facility] [place] [address] Eosinophil abs 0.0 0.0 - 0.5 K/cumm [facility] Comment:Testing performed by : [facility] Heme [facility], [address] [place] [phone] Basophil abs 0.0 0.0 - 0.1 K/cumm [facility] Comment:Testing performed by : [facility] Heme [facility], [address] [place] [phone] Neutrophil pct 79.2 % [facility] Comment: Interpretive Data Percent cell count reference ranges are not reported, since discordance with absolute values may lead to misinterpretation of CBC data. Current Interpretive Data was last revised on 2017. Testing performed by: [facility] Heme [facility], [address] [place] [phone] Lymphocyte pct 10.5 % [facility] Comment: Interpretive Data Percent cell count reference ranges are not reported, since discordance with absolute values may lead to misinterpretation of CBC data. Current Interpretive Data was last revised on 2017. Testing performed by: [facility] Heme Lab, [address] [place] [phone] Monocyte pct 10.2 % [facility] Comment: Interpretive Data Percent cell count reference ranges are not reported, since discordance with absolute values may lead to misinterpretation of CBC data. Current Interpretive Data was last revised on 2017. Testing performed by: [facility] Heme Lab, [address] [place] [phone] Eosinophil pct 0.0 % [facility] Comment: Interpretive Data Percent cell count reference ranges are not reported, since discordance with absolute values may lead to misinterpretation of CBC data. Current Interpretive Data was last revised on 2017. Testing performed by: [facility] Heme Lab, [address] [place] [phone] Basophil pct 0.1 % [facility] Comment: Interpretive Data Percent cell count reference ranges are not reported, since discordance with absolute values may lead to misinterpretation of CBC data. Current Interpretive Data was last revised on 2017. Testing performed by: [facility] Heme Lab, [address] [place] [phone] Blood 08/12/2024 10:3 5 AM CANDLEMAKING LABORER 08/12/2024 10:50 AM CANDLEMAKING LABORER us Adama Adkins MD LAB BLOOD ORDERABLES Final Resul t [facility] Department [place] [address] * (ABNORMAL) CBC with auto differential (08/12/2024 10:35 AM CANDLEMAKING LABORER) WBC 15.9(H) 3.8 - 9.9 K/cumm Comment:Testing performed by : [facility] Heme Lab, [address] [place] [address] Hgb 11.1(L) 11.9 - 15.5 g/dL [facility] Comment:Testing performed by : [facility] Heme Lab, [address] [place] [address] Hct 32.8(L) 35.6 - 45.5 % [facility] Comment:Testing performed by : [facility] Heme Lab, [address] [place] [address] Plt 394 150 - 400 K/cumm [facility] Comment:Testing performed by : [facility] Heme Lab, [address] [place] [address] MPV 7.3 6.8 - 10.4 fL [facility] Comment:Testing performed by : [facility] Heme Lab, [address] [place] [address] RBC 3.35(L) 3.90 - 5.20 M/cumm [facility] Comment:Testing performed by : [facility] Heme Lab, [address] [place] [address] MCV 98.0(H) 81.3 - 96.4 fL [facility] Comment:Testing performed by : [facility] Heme Lab, [address] [place] [address] MCH 33.0 27.1 - 33.3 pg [facility] Comment:Testing performed by : [facility] Heme Lab, [address] [place] [phone] MCHC 33.7 32.3 - 35.7 g/dL [facility] Comment:Testing performed by : [facility] Heme Lab, [address] [place] [phone] RDW CV 18.1(H) 11.1 - 14.9 % [facility] Comment:Testing performed by : [facility] Heme Lab, [address] [place] [phone] NRBC abs 0.00 0.00 - 0.01 K/cumm [facility] Comment:Testing performed by : [facility] Heme Lab, [address] [place] [phone] Blood 08/12/2024 10:3 5 AM CANDLEMAKING LABORER 08/12/2024 10:50 AM CANDLEMAKING LABORER us Adama Adkins MD LAB BLOOD ORDERABLES Final Resul t [facility] Department [place] [address] * (ABNORMAL) Comprehensive metabolic panel (08/12/2024 10:35 AM CANDLEMAKING LABORER) Sodium 141 135 - 145 mmol/L Potassium, pl 4.1 3.3 - 4.9 mmol/L [facility] Chloride 106 97 - 110 mmol/L [facility] CO2 27 22 - 32 mmol/L [facility] Anion gap 8 2 - 15 mmol/L [facility] BUN 13 6 - 25 mg/dL [facility] Creatinine 0.67 0.60 - 1.10 mg/dL [facility] Glucose 108 70 - 199 mg/dL [facility] Comment: Interpretive Data Fasting glucose >/= [...] Calcium 9.5 8.5 - 10.3 mg/dL [facility] Bilirubin, total <0.2 0.1 - 1.2 mg/dL [facility] Protein, pl 7.2 6.5 - 8.5 g/dL [facility] Albumin 4.0 3.5 - 5.0 g/dL [facility] Alk phos 101 40 - 130 Units/L [facility] ALT 53(H) 7 - 45 Units/L [facility] AST 37 10 - 45 Units/L [facility] Blood 08/12/2024 10:3 5 AM CANDLEMAKING LABORER 08/12/2024 10:49 AM CANDLEMAKING LABORER us Adama Adkins MD LAB BLOOD ORDERABLES Final Resul t [facility] Department [place] [address] * eGFR (07/22/2024 11:11 AM CANDLEMAKING LABORER) eGFR >90 >=60 mL/min/1. 73 m2 Comment: [...] reviewed 2021. Blood 07/22/2024 11:1 1 AM CANDLEMAKING LABORER 07/22/2024 11:14 AM CANDLEMAKING LABORER us Deni RADFORD LAB BLOOD ORDERABLES Final Result [facility] Department [place] [address] * (ABNORMAL) Differential, auto (07/22/2024 11:11 AM CANDLEMAKING LABORER) Neutrophil abs 12.9(H) 1.5 - 6.5 K/cumm Comment:Testing performed by : [facility], [address] [place] [address] Lymphocyte abs 1.0 0.8 - 3.3 K/cumm CERNER BJ Comment:Testing performed by : [facility], [address] [place] [phone] Monocyte abs 0.7 0.2 - 0.8 K/cumm CERNER BJ Comment:Testing performed by : [facility], [address] [place] [phone] Eosinophil abs 0.0 0.0 - 0.5 K/cumm CERNER BJ Comment:Testing performed by : [facility], [address] [place], [place] [phone] Basophil abs 0.0 0.0 - 0.1 K/cumm CERNER BJ Comment:Testing performed by : [facility], [address] [place] [address] Neutrophil pct 88.1 % CERNER BJ Comment: Interpretive Data Percent cell count reference ranges are not reported, since discordance with absolute values may lead to misinterpretation of CBC data. Current Interpretive Data was last revised on 2017. Testing performed by: [facility], [address] [place] [phone] Lymphocyte pct 6.7 % CERANGELA OLEA Comment: Interpretive Data Percent cell count reference ranges are not reported, since discordance with absolute values may lead to misinterpretation of CBC data. Current Interpretive Data was last revised on 2017. Testing performed by: [facility], [address] [place] [phone] Monocyte pct 4.9 % ALMA ROSA OLEA Comment: Interpretive Data Percent cell count reference ranges are not reported, since discordance with absolute values may lead to misinterpretation of CBC data. Current Interpretive Data was last revised on 2017. Testing performed by: [facility], [address] [place] [phone] Eosinophil pct 0.0 % ALMA ROSA OLEA Comment: Interpretive Data Percent cell count reference ranges are not reported, since discordance with absolute values may lead to misinterpretation of CBC data. Current Interpretive Data was last revised on 2017. Testing performed by: [facility], [address] [place] [phone] Basophil pct 0.3 % ALMA ROSA OLEA Comment: Interpretive Data Percent cell count reference ranges are not reported, since discordance with absolute values may lead to misinterpretation of CBC data. Current Interpretive Data was last revised on 2017. Testing performed by: [facility], [address] [place] [phone] Blood 07/22/2024 11:1 1 AM CANDLEMAKING LABORER 07/22/2024 11:12 AM CANDLEMAKING LABORER us Deni [facility] LAB BLOOD ORDERABLES Final Result ALMA ROSA OLEA [facility] Department [place] [address] * (ABNORMAL) CBC with auto differential (07/22/2024 11:11 AM CANDLEMAKING LABORER) WBC 14.6(H) 3.8 - 9.9 K/cumm Comment:Testing performed by : [facility], [address] [place] [address] Hgb 12.1 11.9 - 15.5 g/dL CERNER BJ Comment:Testing performed by : [facility], [address] [place] [address] Hct 35.8 35.6 - 45.5 % CERNER BJ Comment:Testing performed by : [facility], [address] [place], [place] [phone] Plt 413(H) 150 - 400 K/cumm CERNER BJ Comment:Testing performed by : [facility], [address] [place] [address] MPV 7.2 6.8 - 10.4 fL CERNER BJ Comment:Testing performed by : [facility], [address] [place], [place] [phone] RBC 3.76(L) 3.90 - 5.20 M/cumm CERNER BJ Comment:Testing performed by : [facility], [address] [place] [address] MCV 95.3 81.3 - 96.4 fL CERNER BJ Comment:Testing performed by : [facility], [address] [place] [address] MCH 32.3 27.1 - 33.3 pg CERNER BJ Comment:Testing performed by : [facility], [address] [place] [address] MCHC 33.9 32.3 - 35.7 g/dL CERNER BJ Comment:Testing performed by : [facility], [address] [place] [address] RDW CV 15.1(H) 11.1 - 14.9 % CERNER BJ Comment:Testing performed by : [facility], [address] [place] [address] NRBC abs 0.00 0.00 - 0.01 K/cumm CERNER BJ Comment:Testing performed by : [facility], [address] [place] [address] Blood 07/22/2024 11:1 1 AM CANDLEMAKING LABORER 07/22/2024 11:12 AM CANDLEMAKING LABORER us Deni RADF[facility] LAB BLOOD ORDERABLES Final Result [facility] Department [place] [address] * (ABNORMAL) Comprehensive metabolic panel (07/22/2024 11:11 AM CANDLEMAKING LABORER) Sodium 138 135 - 145 mmol/L Potassium, pl 4.0 3.3 - 4.9 mmol/L [facility] Chloride 104 97 - 110 mmol/L [facility] CO2 27 22 - 32 mmol/L [facility] Anion gap 7 2 - 15 mmol/L [facility] BUN 10 6 - 25 mg/dL [facility] Creatinine 0.64 0.60 - 1.10 mg/dL [facility] Glucose 138 70 - 199 mg/dL [facility] Comment: Interpretive Data Fasting glucose >/= [...] 2022. Calcium 9.6 8.5 - 10.3 mg/dL [facility] Bilirubin, total 0.2 0.1 - 1.2 mg/dL [facility] Protein, pl 7.3 6.5 - 8.5 g/dL [facility] Albumin 4.0 3.5 - 5.0 g/dL [facility] Alk phos 100 40 - 130 Units/L [facility] ALT 60(H) 7 - 45 Units/L [facility] AST 31 10 - 45 Units/L [facility] Blood 07/22/2024 11:1 1 AM CANDLEMAKING LABORER 07/22/2024 11:14 AM CANDLEMAKING LABORER us Deni RADFORD LAB BLOOD ORDERABLES Final Result Performing Organization Address City/[facility]/ZIP Co de Phone Number [facility] Department [place] [address] * eGFR (07/01/2024 9:10 AM CANDLEMAKING LABORER) eGFR >90 >=60 mL/min/1. 73 m2 Comment: [...] last reviewed 2021. Blood 07/01/2024 9:10 AM CANDLEMAKING LABORER 07/01/2024 9:30 AM CANDLEMAKING LABORER us Adama Adkins MD LAB BLOOD ORDERABLES Final Resul t Performing Organization Address City/[facility]/ZIP Co de Phone Number ALMA ROSA OLEA [facility] Department [place] [address] * (ABNORMAL) Differential, auto (07/01/2024 9:10 AM CANDLEMAKING LABORER) Neutrophil abs 13.0(H) 1.5 - 6.5 K/cumm Comment:Testing performed by : [facility], [address] [place] [phone] Lymphocyte abs 1.5 0.8 - 3.3 K/cumm CERNER BJH Comment:Testing performed by : [facility], [address] [place] [address] Monocyte abs 1.2(H) 0.2 - 0.8 K/cumm CERNER BJH Comment:Testing performed by : [facility], [address] [place], [place] [phone] Eosinophil abs 0.0 0.0 - 0.5 K/cumm CERNER BJH Comment:Testing performed by : [facility], [address] [place] [phone] Basophil abs 0.0 0.0 - 0.1 K/cumm CERNER BJH Comment:Testing performed by : [facility], [address] [place] [phone] Neutrophil pct 82.8 % CERNER BJH Comment: Interpretive Data Percent cell count reference ranges are not reported, since discordance with absolute values may lead to misinterpretation of CBC data. Current Interpretive Data was last revised on 2017. Testing performed by: [facility], [address] [place] [phone] Lymphocyte pct 9.6 % CERNER BJH Comment: Interpretive Data Percent cell count reference ranges are not reported, since discordance with absolute values may lead to misinterpretation of CBC data. Current Interpretive Data was last revised on 2017. Testing performed by: [facility], [address] [place] [phone] Monocyte pct 7.4 % CERNER BJH Comment: Interpretive Data Percent cell count reference ranges are not reported, since discordance with absolute values may lead to misinterpretation of CBC data. Current Interpretive Data was last revised on 2017. Testing performed by: [facility], [address] [place] [address] Eosinophil pct 0.0 % ALMA ROSA OLEA Comment: Interpretive Data Percent cell count reference ranges are not reported, since discordance with absolute values may lead to misinterpretation of CBC data. Current Interpretive Data was last revised on 2017. Testing performed by: [facility], [address] [place] [address] Basophil pct 0.2 % ALMA ROSA OLEA Comment: Interpretive Data Percent cell count reference ranges are not reported, since discordance with absolute values may lead to misinterpretation of CBC data. Current Interpretive Data was last revised on 2017. Testing performed by: [facility], [address] [place] [address] Blood 07/01/2024 9:10 AM CANDLEMAKING LABORER 07/01/2024 9:31 AM CANDLEMAKING LABORER us Adama Fa'christiano BRYANT LAB BLOOD ORDERABLES Final Resul t [facility] Department [place] [address] * (ABNORMAL) CBC with auto differential (07/01/2024 9:10 AM CANDLEMAKING LABORER) WBC 15.7(H) 3.8 - 9.9 K/cumm Comment:Testing performed by : [facility], [address] [place] [address] Hgb 12.6 11.9 - 15.5 g/dL ALMA ROSA OLEA Comment:Testing performed by : [facility], [address] [place] [address] Hct 38.5 35.6 - 45.5 % ALMA ROSA OLEA Comment:Testing performed by : [facility], [address] [place] [address] Plt 379 150 - 400 K/cumm ALMA ROSA OLEA Comment:Testing performed by : [facility], [address] [place] [address] MPV 7.8 6.8 - 10.4 fL ALMA ROSA OLEA Comment:Testing performed by : [facility], [address] [place] [address] RBC 4.09 3.90 - 5.20 M/cumm ALMA ROSA OLEA Comment:Testing performed by : [facility], [address] [place] [address] MCV 94.1 81.3 - 96.4 fL ALMA ROSA OLEA Comment:Testing performed by : [facility], [address] [place] [address] MCH 30.9 27.1 - 33.3 pg ALMA ROSA OLEA Comment:Testing performed by : [facility], [address] [place] [address] MCHC 32.8 32.3 - 35.7 g/dL ALMA ROSA OLEA Comment:Testing performed by : [facility], [address] [place] [address] RDW CV 13.2 11.1 - 14.9 % ALMA ROSA [facility] Comment:Testing performed by : [facility], [address] [place] [address] NRBC abs 0.00 0.00 - 0.01 K/cumm ALMA ROSA [facility] Comment:Testing performed by : [facility], [address] [place] [address] Blood 07/01/2024 9:10 AM CANDLEMAKING LABORER 07/01/2024 9:31 AM CANDLEMAKING LABORER us Adamakian Adkins MD LAB BLOOD ORDERABLES Final Resul t [facility] Department [place] [address] * Comprehensive metabolic panel (07/01/2024 9:10 AM CANDLEMAKING LABORER) Sodium 142 135 - 145 mmol/L Potassium, pl 3.9 3.3 - 4.9 mmol/L ALMA ROSA [facility] Chloride 107 97 - 110 mmol/L [facility] CO2 28 22 - 32 mmol/L [facility] Anion gap 7 2 - 15 mmol/L [facility] BUN 10 6 - 25 mg/dL [facility] Creatinine 0.78 0.60 - 1.10 mg/dL [facility] Glucose 117 70 - 199 mg/dL [facility] Comment: Interpretive Data Fasting glucose >/= [...] 2022. Calcium 9.5 8.5 - 10.3 mg/dL [facility] Bilirubin, total 0.2 0.1 - 1.2 mg/dL [facility] Protein, pl 7.4 6.5 - 8.5 g/dL [facility] Albumin 3.9 3.5 - 5.0 g/dL [facility] Alk phos 84 40 - 130 Units/L [facility] ALT 27 7 - 45 Units/L [facility] AST 18 10 - 45 Units/L [facility] Blood 07/01/2024 9:10 AM CANDLEMAKING LABORER 07/01/2024 9:30 AM CANDLEMAKING LABORER us Adama Fa'christiano BRYANT LAB BLOOD ORDERABLES Final Resul t [facility] Department [place] [address] * eGFR (06/10/2024 8:33 AM CANDLEMAKING LABORER) eGFR 90 >=60 mL/min/1. 73 m2 Comment: [...] last reviewed 2021. Blood 06/10/2024 8:33 AM CANDLEMAKING LABORER 06/10/2024 8:36 AM CANDLEMAKING LABORER us Adamakian Adkins MD LAB BLOOD ORDERABLES Final Resul t ALMA ROSA [facility] Department [place] [address] * (ABNORMAL) Differential, auto (06/10/2024 8:33 AM CANDLEMAKING LABORER) Neutrophil abs 6.9(H) 1.5 - 6.5 K/cumm Comment:Testing performed by : [facility], [address] [place] [phone] Lymphocyte abs 0.8 0.8 - 3.3 K/cumm ALMA ROSA OLEA Comment:Testing performed by : [facility], [address] [place] [phone] Monocyte abs 0.2 0.2 - 0.8 K/cumm ALMA ROSA OLEA Comment:Testing performed by : [facility], [address] [place] [phone] Eosinophil abs 0.0 0.0 - 0.5 K/cumm CERNER BJH Comment:Testing performed by : [facility], [address] [place] [phone] Basophil abs 0.0 0.0 - 0.1 K/cumm CERNER BJH Comment:Testing performed by : [facility], [address] [place] [phone] Neutrophil pct 87.6 % CERNER BJH Comment: Interpretive Data Percent cell count reference ranges are not reported, since discordance with absolute values may lead to misinterpretation of CBC data. Current Interpretive Data was last revised on 2017. Testing performed by: [facility], [address] [place] [phone] Lymphocyte pct 9.9 % CERNER BJH Comment: Interpretive Data Percent cell count reference ranges are not reported, since discordance with absolute values may lead to misinterpretation of CBC data. Current Interpretive Data was last revised on 2017. Testing performed by: [facility], [address] [place] [phone] Monocyte pct 2.2 % CERNER BJH Comment: Interpretive Data Percent cell count reference ranges are not reported, since discordance with absolute values may lead to misinterpretation of CBC data. Current Interpretive Data was last revised on 2017. Testing performed by: [facility], [address] [place] [phone] Eosinophil pct 0.0 % CERNER BJH Comment: Interpretive Data Percent cell count reference ranges are not reported, since discordance with absolute values may lead to misinterpretation of CBC data. Current Interpretive Data was last revised on 2017. Testing performed by: [facility], [address] [place] [phone] Basophil pct 0.3 % CERNER BJH Comment: Interpretive Data Percent cell count reference ranges are not reported, since discordance with absolute values may lead to misinterpretation of CBC data. Current Interpretive Data was last revised on 2017. Testing performed by: [facility], [address] [place] [address] Blood 06/10/2024 8:33 AM CANDLEMAKING LABORER 06/10/2024 8:35 AM CANDLEMAKING LABORER Adama Adkins MD LAB BLOOD ORDERABLES Final Resul t [facility] Department [place] [address] * CBC with auto differential (06/10/2024 8:33 AM CANDLEMAKING LABORER) WBC 7.8 3.8 - 9.9 K/cumm Comment:Testing performed by : [facility], [address] [place] [address] Hgb 13.4 11.9 - 15.5 g/dL ALMA ROSA OLEA Comment:Testing performed by : [facility], [address] [place] [address] Hct 40.8 35.6 - 45.5 % CERANGELA BJ Comment:Testing performed by : [facility], [address] [place] [address] Plt 263 150 - 400 K/cumm CERANGELA OLEA Comment:Testing performed by : [facility], [address] [place] [address] MPV 8.5 6.8 - 10.4 fL CERANGELA BJ Comment:Testing performed by : [facility], [address] [place] [address] RBC 4.31 3.90 - 5.20 M/cumm CERANGELA BJ Comment:Testing performed by : [facility], [address] [place] [address] MCV 94.6 81.3 - 96.4 fL CERANGELA BJ Comment:Testing performed by : [facility], [address] [place] [address] MCH 31.1 27.1 - 33.3 pg CERANGELA BJ Comment:Testing performed by : [facility], [address] [place] [phone] MCHC 32.9 32.3 - 35.7 g/dL [facility] Comment:Testing performed by : [facility], [address] [place] [address] RDW CV 13.4 11.1 - 14.9 % [facility] Comment:Testing performed by : [facility], [address] [place] [address] NRBC abs 0.00 0.00 - 0.01 K/cumm [facility] Comment:Testing performed by : [facility], [address] [place] [phone] Blood 06/10/2024 8:33 AM CANDLEMAKING LABORER 06/10/2024 8:35 AM CANDLEMAKING LABORER us Adamakian Adkins MD LAB BLOOD ORDERABLES Final Resul t Performing Organization Address City/State/[facility] Co de Phone Number [facility] Department [place] [address] * Comprehensive metabolic panel (06/10/2024 8:33 AM CANDLEMAKING LABORER) Sodium 142 135 - 145 mmol/L Potassium, pl 3.9 3.3 - 4.9 mmol/L [facility] Chloride 107 97 - 110 mmol/L [facility] CO2 27 22 - 32 mmol/L [facility] Anion gap 8 2 - 15 mmol/L [facility] BUN 13 6 - 25 mg/dL [facility] Creatinine 0.80 0.60 - 1.10 mg/dL [facility] Glucose 180 70 - 199 mg/dL [facility] Comment: Interpretive Data Fasting glucose >/= [...] 2022. Calcium 9.5 8.5 - 10.3 mg/dL [facility] Bilirubin, total 0.2 0.1 - 1.2 mg/dL CERNER [facility] Protein, pl 7.4 6.5 - 8.5 g/dL CERNER [facility] Albumin 3.8 3.5 - 5.0 g/dL CERNER [facility] Alk phos 73 40 - 130 Units/L CERNER [facility] ALT 26 7 - 45 Units/L CERNER [facility] AST 20 10 - 45 Units/L CERNER [facility] Blood 06/10/2024 8:33 AM CANDLEMAKING LABORER 06/10/2024 8:36 AM CANDLEMAKING LABORER Adama Adkins MD LAB BLOOD ORDERABLES Final Resul t [facility] Department [place] [address] * XR Chest 1 View (06/08/2024 9:28 AM CANDLEMAKING LABORER) Anatomical Region Laterality Modality Body, Chest N/A Computed Radiogr aphy 06/08/2024 9:48 AM CANDLEMAKING LABORER Impressions 06/08/2024 9:48 AM CANDLEMAKING LABORER Right internal jugular port catheter tip at superior cavoatrial junction. Normal heart size and mediastinal contours. ??Small band like opacity in the left upper lung with no correlate on CT 06/04/2024 may represent atelectasis. ??No pleural effusion or pneumothorax. Electronically signed by: Nahum Fisher M.D. Narrative 06/08/2024 9:48 AM CANDLEMAKING LABORER EXAMINATION: 1 view chest radiograph COMPARISON: None [...] pneumothorax. Electronically signed by: Nahum Fisher M.D. Result [facility] Kendal Malhotra MD PhD IMG XR PROCEDURES Final Re sult * FL Fluoroscopy < 1 Hour (06/08/2024 8:40 AM CANDLEMAKING LABORER) Narrative [id number] - 06/08/2024 8:41 AM CANDLEMAKING LABORER The images from this study are not interpreted by Radiology. ??Please refer to the physician's procedure / OR operative note. Result [facility] Kendal Malhotra MD PhD IMG FLUOROSCOPY PROCEDURES Final Result [id number] * Peripheral IV Catheter (06/08/2024 7:54 AM CANDLEMAKING LABORER) Narrative Travon Soto MD - 06/08/2024 7:54 AM CANDLEMAKING LABORER Travon Soto MD ? 06/08/2024 ??7:55 AM [...] Final Result * Airway (06/08/2024 7:53 AM CANDLEMAKING LABORER) Narrative Travon Soto MD - 06/08/2024 7:53 AM CANDLEMAKING LABORER Travon Soto MD ? 06/08/2024 ??7:54 AM [...] Bone Imaging Whole Body (06/04/2024 2:21 PM CANDLEMAKING LABORER) Anatomical Region Laterality Modality N/A Nuclear Medicine 06/04/2024 4:01 PM CANDLEMAKING LABORER Impressions 06/04/2024 4:19 PM CANDLEMAKING LABORER No evidence of osseous metastatic disease. Dictated by: Henrique Mendez MD PHD The radiology attending physician has personally reviewed this study, and had reviewed and/or edited this written report and agrees with it. Electronically signed by: Sidney Hallman M.D. Narrative 06/04/2024 4:19 PM CANDLEMAKING LABORER EXAMINATION: ??BONE SCINTIGRAPHY (WHOLE-BODY) DATE OF STUDY: [...] Abdomen Pelvis W Contrast (06/04/2024 12:26 PM CANDLEMAKING LABORER) Anatomical Region Laterality Modality Body N/A Computed Tomogra phy 06/04/2024 12:3 8 PM CANDLEMAKING LABORER Impressions 06/04/2024 12:38 PM CANDLEMAKING LABORER 1. ??Known primary right breast malignancy is not well delineated on CT. ??Otherwise, no specific evidence of metastatic disease in the chest, abdomen or pelvis. Electronically signed by: Rakesh Eisenberg M.D. Narrative 06/04/2024 12:38 PM CANDLEMAKING LABORER EXAMINATION: CT of the chest, abdomen and [...] Re sult * eGFR (06/04/2024 11:03 AM CANDLEMAKING LABORER) eGFR 83 >=60 mL/min/1. 72 m2 Comment: [...] reviewed 2021. Blood 06/04/2024 11:0 3 AM [employer]KING [employer]ER 06/04/2024 11:12 AM CANDLEMAKING LABORER us Adama Adkins MD LAB BLOOD ORDERABLES Final Resul t [facility] Department of Laboratories [place], [place] [id number] * Differential, auto (06/04/2024 11:03 AM C[employer]LEMAKING LABORER) Neutrophil abs 4.9 1.5 - 6.5 K/cumm Imm gran abs 0.0 0.0 - 0.1 K/cumm [facility] Lymphocyte abs 1.9 0.8 - 3.3 K/cumm [facility] Monocyte abs 0.7 0.2 - 0.8 K/cumm [facility] Eosinophil abs 0.2 0.0 - 0.5 K/cumm [facility] Basophil abs 0.0 0.0 - 0.1 K/cumm [facility] Neutrophil pct 63.0 % [facility] Comment: Interpretive Data Percent cell count reference ranges are not reported, since discordance with absolute values may lead to misinterpretation of CBC data. Current Interpretive Data was last revised on 2017. Imm gran pct 0.3 % [facility] Comment: Interpretive Data Percent cell count reference ranges are not reported, since discordance with absolute values may lead to misinterpretation of CBC data. Current Interpretive Data was last revised on 2017. Lymphocyte pct 23.9 % [facility] Comment: Interpretive Data Percent cell count reference ranges are not reported, since discordance with absolute values may lead to misinterpretation of CBC data. Current Interpretive Data was last revised on 2017. Monocyte pct 9.2 % [facility] Comment: Interpretive Data Percent cell count reference ranges are not reported, since discordance with absolute values may lead to misinterpretation of CBC data. Current Interpretive Data was last revised on 2017. Eosinophil pct 3.1 % [facility] Comment: Interpretive Data Percent cell count reference ranges are not reported, since discordance with absolute values may lead to misinterpretation of CBC data. Current Interpretive Data was last revised on 2017. Basophil pct 0.5 % [facility] Comment: Interpretive Data Percent cell count reference ranges are not reported, since discordance with absolute values may lead to misinterpretation of CBC data. Current Interpretive Data was last revised on 2017. Blood 06/04/2024 11:0 3 AM [employer]KING LABORER 06/04/2024 11:11 AM C[employer]LEMAKING LABORER us Adama Adkins MD LAB BLOOD ORDERABLES Final Resul t [facility] Department [place] [address] * CBC with auto differential (06/04/2024 11:03 AM C[employer]LEMAKING LABORER) [facility] WBC 7.8 3.8 - 9.9 K/cumm Hgb 14.5 11.9 - 15.5 g/dL [facility] Hct 43.8 35.6 - 45.5 % [facility] Plt 272 150 - 400 K/cumm [facility] MPV 10.4 9.1 - 12.3 fL [facility] RBC 4.63 3.90 - 5.20 M/cumm [facility] MCV 94.6 81.3 - 96.4 fL [facility] MCH 31.3 27.1 - 33.3 pg [facility] MCHC 33.1 32.3 - 35.7 g/dL [facility] RDW CV 12.8 11.1 - 14.9 % [facility] RDW SD 43.8 35.7 - 48.1 fL [facility] NRBC abs 0.00 0.00 - 0.01 K/cumm [facility] Blood 06/04/2024 11:0 3 AM [employer]KING LABORER 06/04/2024 11:11 AM C[employer]LEMAKING LABORER us Adamakian Adkins MD LAB BLOOD ORDERABLES Final Resul t [facility] Department [place] [address] * Comprehensive metabolic panel (06/04/2024 11:03 AM C[employer]LEMAKING LABORER) [facility] Sodium 142 135 - 145 mmol/L Potassium, pl 4.9 3.3 - 4.9 mmol/L [facility] Comment:Hemolyzed; Potassium value may be falsely elevated by as much as 0.3-0.5 mmol/L. Suggest redraw and reanalysis. Chloride 105 97 - 110 mmol/L [facility] CO2 30 22 - 32 mmol/L [facility] Anion gap 7 2 - 15 mmol/L [facility] BUN 14 6 - 25 mg/dL [facility] Creatinine 0.86 0.60 - 1.10 mg/dL [facility] Glucose 96 70 - 199 mg/dL [facility] Comment: Interpretive Data Fasting glucose >/= [...] 2022. Calcium 9.7 8.5 - 10.3 mg/dL [facility] Bilirubin, total 0.4 0.1 - 1.2 mg/dL [facility] Protein, pl 7.7 6.5 - 8.5 g/dL [facility] Albumin 4.0 3.5 - 5.0 g/dL [facility] Alk phos 84 40 - 130 Units/L [facility] ALT 32 7 - 45 Units/L [facility] AST 33 10 - 45 Units/L [facility] Comment:Hemolyzed; result ma y be falsely elevated Blood 06/04/2024 11:0 3 AM C[employer]LEMAKING LABORER 06/04/2024 11:11 AM CANDLEMAKING LABORER Adama Adkins MD LAB BLOOD ORDERABLES Final Resul t [facility] Department [place] [address] * Screening Mammogram Bilateral W Dannie (04/22/2024 3:57 PM CDT) Anatomical Region Laterality Modality Breast Bilateral Mammography Narrative 04/23/2024 1:05 PM CDT Mammogram Technique: Bilateral Digital Breast Tomosynthesis, Bilateral C-view 2D Screening mammogram. ??Views obtained: ??bilateral craniocaudal and bilateral mediolateral oblique. ??Computer Aided Detection was performed. Mammogram Findings: The present examination has been compared to prior imaging studies performed at [facility] on 09/21/2019, 10/11/2019 and 03/07/2023. There [...] compared to prior imaging studies performed at [facility] on 09/21/2019, 10/11/2019 and 03/07/2023. There [...] Relevant to Health Maintenance Insurance [facility] CHOICE PLUS [employer] ACCESS Care Teams Scheduling Assistant Relationship Specialty Start Date End Date Daljit Wiley MD PCP - General Family Medicine 08/18/18
--- OUTSIDE RECORDS SUMMARY | 2024-08-25 00:36 | XMS_ITS | Clinical Summary ---
Author Organization [facility] Address [address] [place] [address] Care Team Providers Care Blacking Wheel Tender Name Role Phone Daljit Wiley MD Primary Care Provider [phone] Allergies No known active allergies Medications melatonin [...] Cancer Staging:Clinical:Stage Unknown(cT2, cNX, cM0, G3, ER-, SD-, HER2+) - Unsigned Prevention of chemotherapy-induced neutropenia 0 09/22/2019 Fibrocystic breast changes of both breasts 08/18 History of abnormal mammogram 06/29/2018 Encounters Date Type Department Care Team Description 08/12/2024 12:00 PM DEPLOYMENT ENGINEER Infusion [facility] - Infusion [address] [facility] Floor 5 [place] [address] Prevention of chemotherapy-induced neutropenia (Primary Dx); Malignant 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 in female, estrogen receptor negative (HCC) 08/12/2024 11:00 AM DEPLOYMENT ENGINEER Office Visit [facility] [address] [place] [address] 8 [place] [address] Adama Adkins MD Prevention of chemotherapy-induced neutropenia (Primary Dx); Malignant 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 in female, estrogen receptor negative (HCC) 08/12/2024 10:00 AM DEPLOYMENT ENGINEER Clinical Support [facility] - Lab Collection [address] [place] [address] Floor 5 [place] [address] Malignant 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 in female, estrogen receptor negative (HCC); Prevention of chemotherapy-induced neutropenia 07/22/2024 1:30 PM DEPLOYMENT ENGINEER Infusion [facility] - Infusion [address] [place] [address] Floor 5 [place] [address] Prevention of chemotherapy-induced neutropenia (Primary Dx); Malignant 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 in female, estrogen receptor negative (HCC) 07/22/2024 11:45 AM DEPLOYMENT ENGINEER Office Visit [facility] [address] [place] [phone] Adama Adkins MD Encounter for monitoring cardiotoxic drug therapy (Primary Dx); Malignant 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 in female, estrogen receptor negative (HCC); Prevention of chemotherapy-induced neutropenia 07/22/2024 10:45 AM DEPLOYMENT ENGINEER Clinical Support [facility] - Lab Collection [address] [place] [address] 5 [place] [address] Malignant 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 in female, estrogen receptor negative (HCC); Prevention of chemotherapy-induced neutropenia 07/01/2024 10:30 AM DEPLOYMENT ENGINEER Infusion [facility] - Infusion [address] [place] [address] Floor 6 [place] [address] Prevention of chemotherapy-induced neutropenia (Primary Dx); Malignant 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 in female, estrogen receptor negative (HCC) 07/01/2024 9:30 AM DEPLOYMENT ENGINEER Office Visit [facility] [address] [place] [address] Floor 8 [place] [address] Deni Licona PA Prevention of chemotherapy-induced neutropenia (Primary Dx); Malignant 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 in female, estrogen receptor negative (HCC) 07/01/2024 8:45 AM DEPLOYMENT ENGINEER Clinical Support [facility] [place] - Lab Collection [facility] Floor 6 [place] [address] Malignant 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 in female, estrogen receptor negative (HCC); Prevention of chemotherapy-induced neutropenia 06/22/2024 8:00 AM DEPLOYMENT ENGINEER Office Visit [facility] Surgery [address] [place] [address] 6th [place] [address] [place] [address] Connie Hayes MD Malignant 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 in female, estrogen receptor negative (HCC) 06/15/2024 Telephone [facility] [address] [place] [address] Floor 8 [place] [phone] Allyssa Neumann RN 06/10/2024 10:00 AM DEPLOYMENT ENGINEER Infusion [facility] - Infusion [address] [place] [address] Floor 6 [place] [address] Prevention of chemotherapy-induced neutropenia (Primary Dx); Malignant 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 in female, estrogen receptor negative (HCC) 06/10/2024 8:45 AM DEPLOYMENT ENGINEER Office Visit [facility] [address] [place] [address] Floor 8 [place] [address] Adama Adkins MD Malignant 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 in female, estrogen receptor negative (HCC) (Primary Dx); Prevention of chemotherapy-induced neutropenia 06/10/2024 8:15 AM DEPLOYMENT ENGINEER Clinical Support [facility] - Lab Collection [facility] Floor 5 [place] [address] Malignant 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 in female, estrogen receptor negative (HCC) 06/10/2024 7:45 AM DEPLOYMENT ENGINEER Clinical Support [facility] Lab [address] [place] [address] Floor 5 [place] [address] Malignant 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 in female, estrogen receptor negative (HCC); Prevention of chemotherapy-induced neutropenia 06/10/2024 Orders Only [facility] [address] [place] [address] Floor 8 [place] [address] Adama Adkins MD Malignant 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 in female, estrogen receptor negative (HCC) (Primary Dx) 06/08/2024 9:07 AM DEPLOYMENT ENGINEER - 06/08/2024 11:59 PM DEPLOYMENT ENGINEER Hospital Encounter [facility] ([facility]) [address] [place] [address] Malignant 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 in female, estrogen receptor negative (HCC) Discharge Disposition: Discharge to home or self care 06/08/2024 7:30 AM DEPLOYMENT ENGINEER - 06/08/2024 8:45 AM DEPLOYMENT ENGINEER Surgery [facility] Operating [facility] ([facility]) [address] [place] [address] AftKendal MD PhD INSERTION PORT A CATH 06/08/2024 7:30 AM DEPLOYMENT ENGINEER Anesthesia Event [facility] ([facility]) [address] [place] [address] Jorge Thompson MD Dolnick, Karen Leigh, NP 06/08/2024 5:32 AM DEPLOYMENT ENGINEER - 06/08/2024 9:57 AM DEPLOYMENT ENGINEER Hospital Encounter [facility] ([facility]) [address] [place] [address] Chatot, Kendal Martinez MD PhD Malignant 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 in female, estrogen receptor negative (HCC) (Primary Dx) Discharge Disposition: Discharge to home or self care 06/04/2024 12:30 PM DEPLOYMENT ENGINEER Lab [facility] ([facility]) [address] [place] [phone] Malignant 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 in female, estrogen receptor negative (HCC); Prevention of chemotherapy-induced neutropenia 06/04/2024 10:56 AM DEPLOYMENT ENGINEER - 06/04/2024 11:59 PM DEPLOYMENT ENGINEER Hospital Encounter [facility] ([facility]) [address] [place] [address] Malignant 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 in female, estrogen receptor negative (HCC) Discharge Disposition: Discharge to home or self care 06/04/2024 10:56 AM DEPLOYMENT ENGINEER - 06/04/2024 11:59 PM DEPLOYMENT ENGINEER Hospital Encounter [facility] ([facility]) [address] [place] [address] Discharge Disposition: Discharge to home or self care 06/04/2024 10:56 AM DEPLOYMENT ENGINEER - 06/04/2024 11:59 PM DEPLOYMENT ENGINEER Hospital Encounter [facility] ([facility]) [address] [place] [address] Malignant 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 in female, estrogen receptor negative (HCC) Discharge Disposition: Discharge to home or self care 06/02/2024 Orders Only [facility] [address] [address] Adama Adkins MD Malignant 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 in female, estrogen receptor negative (HCC) (Primary Dx); Prevention of chemotherapy-induced neutropenia; Bone pain due to G-CSF; Chemotherapy induced diarrhea; Encounter for care related to vascular access port; Encounter for antineoplastic chemotherapy 05/28/2024 Orders Only [facility] [address] [place] [address] Adama Adkins MD 05/27/2024 Telephone [facility] [address] [place] [address] Steffanie Rodriguez RN GI Preprocedure 05/25/2024 Orders Only [facility] Surgery [facility] [address] [address] AftKendal MD PhD Malignant 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 in female, estrogen receptor negative (HCC) (Primary Dx) from Last 3 Months Immunizations Name Administration [...] on file Legal Sex Female 5:54 AM DEPLOYMENT ENGINEER Gender Identity Not on file Sexual Orientation Not on file Obstetrics History Last Filed Vital Signs Vital Sign Reading Time Taken Comments Blood Pressure 119/82 08/12/2024 11:05 AM DEPLOYMENT ENGINEER Pulse 74 08/12/2024 11:05 AM DEPLOYMENT ENGINEER Temperature 36.2 ??C (97.2 ??F) 08/12/2024 11:[address] Respiratory Rate 18 08/12/2024 11:05 AM DEPLOYMENT ENGINEER Oxygen Saturation 97% 08/12/2024 11:05 AM DEPLOYMENT ENGINEER Inhaled Oxygen Concentration - - Weight 124.3 kg (274 lb) 08/12/2024 11:05 AM DEPLOYMENT ENGINEER Height 177.8 cm (5' 10 ) 08/12/2024 11:05 AM DEPLOYMENT ENGINEER Body Mass Index 39.31 08/12/2024 11:05 AM DEPLOYMENT ENGINEER Plan of Treatment Health Maintenance Due Date [...] this topic Medical Devices Implanted Type Area Data Governance Consultant Device Identifier Shelf Expiration Date Model / Serial / Lot [employer] [facility] Eviva 13cm Identifier Biopsy Site Obbse-[id number] - [id number] Implanted:Qty: 1 on 05/03/2024 at [facility] [employer] [id number] 01/12/2025 [facility]13 / / [id number] [place] [facility] Powerport Clearvue Airguard 8fr 1 Lumen Lightweight Intermediate Latex Free [id number] - [id number] - [id number] Implanted:Qty: 1 on 06/08/2024 by Aft, Kendal Martinez MD PhD at [facility] [place] [facility] [id number] 06/19/2025 [id number] / [id number] / [id number] Procedures Procedure Name Priority Date/Time Associated Diagnosis Comments EGFR STAT 08/12/2024 10:35 AM DEPLOYMENT ENGINEER Malignant 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 in female, estrogen receptor negative (HCC) Prevention of chemotherapy-induc ed neutropenia DIFFERENTIAL AUTO STAT 08/12/2024 10: 35 AM DEPLOYMENT ENGINEER Malignant 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 in female, estrogen receptor negative (HCC) Prevention of chemotherapy-induc ed neutropenia CBC WITH AUTO DIFFERENTIAL STAT 08/12/2024 10:35 AM DEPLOYMENT ENGINEER Malignant 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 in female, estrogen receptor negative (HCC) Prevention of chemotherapy-induc ed neutropenia COMPREHENSIVE METABOLIC PANEL STAT 08/12/2024 10:35 AM DEPLOYMENT ENGINEER Malignant 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 in female, estrogen receptor negative (HCC) Prevention of chemotherapy-induc ed neutropenia EGFR STAT 07/22/2024 11:11 AM DEPLOYMENT ENGINEER Malignant 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 in female, estrogen receptor negative (HCC) Prevention of chemotherapy-induc ed neutropenia DIFFERENTIAL AUTO STAT 07/22/2024 11: 11 AM DEPLOYMENT ENGINEER Malignant 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 in female, estrogen receptor negative (HCC) Prevention of chemotherapy-induc ed neutropenia CBC WITH AUTO DIFFERENTIAL STAT 07/22/2024 11:11 AM DEPLOYMENT ENGINEER Malignant 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 in female, estrogen receptor negative (HCC) Prevention of chemotherapy-induc ed neutropenia COMPREHENSIVE METABOLIC PANEL STAT 07/22/2024 11:11 AM DEPLOYMENT ENGINEER Malignant 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 in female, estrogen receptor negative (HCC) Prevention of chemotherapy-induc ed neutropenia EGFR STAT 07/01/2024 9:10 AM DEPLOYMENT ENGINEER Malignant 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 in female, estrogen receptor negative (HCC) Prevention of chemotherapy-induc ed neutropenia DIFFERENTIAL AUTO STAT 07/01/2024 9:1 0 AM DEPLOYMENT ENGINEER Malignant 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 in female, estrogen receptor negative (HCC) Prevention of chemotherapy-induc ed neutropenia CBC WITH AUTO DIFFERENTIAL STAT 07/01/2024 9:10 AM DEPLOYMENT ENGINEER Malignant 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 in female, estrogen receptor negative (HCC) Prevention of chemotherapy-induc ed neutropenia COMPREHENSIVE METABOLIC PANEL STAT 07/01/2024 9:10 AM DEPLOYMENT ENGINEER Malignant 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 in female, estrogen receptor negative (HCC) Prevention of chemotherapy-induc ed neutropenia EGFR Routine 06/10/2024 8:33 AM DEPLOYMENT ENGINEER Malignant 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 in female, estrogen receptor negative (HCC) DIFFERENTIAL AUTO Routine 06/10/2024 8:3 3 AM DEPLOYMENT ENGINEER Malignant 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 in female, estrogen receptor negative (HCC) CBC WITH AUTO DIFFERENTIAL Routine 06/10/2024 8:33 AM DEPLOYMENT ENGINEER Malignant 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 in female, estrogen receptor negative (HCC) COMPREHENSIVE METABOLIC PANEL Routine 06/10/2024 8:33 AM DEPLOYMENT ENGINEER Malignant 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 in female, estrogen receptor negative (HCC) XR CHEST 1 VIEW Schedule Routine, Read Routine (OP Routine) 06/08/2024 9:28 AM DEPLOYMENT ENGINEER Malignant 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 in female, estrogen receptor negative (HCC) FL FLUOROSCOPY < 1 HOUR IP Routine 06/08/2024 8:40 AM DEPLOYMENT ENGINEER PERIPHERAL LINE Routine 06/08/2024 7:54 AM DEPLOYMENT ENGINEER ANESTHESIA INTUBATION Routine 06/08/2024 7:53 AM DEPLOYMENT ENGINEER INSERTION PORT A CATH 06/08/2024 7:30 AM DEPLOYMENT ENGINEER Malignant 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 in female, estrogen receptor negative (HCC) NM BONE IMAGING WHOLE BODY Schedule Routine, Read Routine (OP Routine) 06/04/2024 2:21 PM DEPLOYMENT ENGINEER Malignant 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 in female, estrogen receptor negative (HCC) CT CHEST ABDOMEN PELVIS W CONTRAST Schedule Routine, Read Routine (OP Routine) 06/04/2024 12:26 PM DEPLOYMENT ENGINEER Malignant 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 in female, estrogen receptor negative (HCC) EGFR STAT 06/04/2024 11:03 AM DEPLOYMENT ENGINEER Malignant 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 in female, estrogen receptor negative (HCC) Prevention of chemotherapy-induc ed neutropenia DIFFERENTIAL AUTO STAT 06/04/2024 11: 03 AM DEPLOYMENT ENGINEER Malignant 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 in female, estrogen receptor negative (HCC) Prevention of chemotherapy-induc ed neutropenia CBC WITH AUTO DIFFERENTIAL STAT 06/04/2024 11:03 AM DEPLOYMENT ENGINEER Malignant 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 in female, estrogen receptor negative (HCC) Prevention of chemotherapy-induc ed neutropenia COMPREHENSIVE METABOLIC PANEL STAT 06/04/2024 11:03 AM DEPLOYMENT ENGINEER Malignant neoplasm of upper-outer quadrant of right [...] Maintenance Results * eGFR (08/12/2024 10:35 AM DEPLOYMENT ENGINEER) eGFR >90 >=60 mL/min/1. 73 m2 Comment: [...] reviewed 2021. Blood 08/12/2024 10:3 5 AM DEPLOYMENT ENGINEER 08/12/2024 10:49 AM DEPLOYMENT ENGINEER us Adama Adkins MD LAB BLOOD ORDERABLES Final Resul t [facility] [place] [address] * (ABNORMAL) Differential, auto (08/12/2024 10:35 AM DEPLOYMENT ENGINEER) Neutrophil abs 12.6(H) 1.5 - 6.5 K/cumm Comment:Testing performed by : [facility], [address] [place] [phone] Lymphocyte abs 1.7 0.8 - 3.3 K/cumm CERNER LEFTY Comment:Testing performed by : [facility], [address] [place] [phone] Monocyte abs 1.6(H) 0.2 - 0.8 K/cumm CERANGELA OLEA Comment:Testing performed by : [facility], [address] [place] [address] Eosinophil abs 0.0 0.0 - 0.5 K/cumm [facility] Comment:Testing performed by : [facility], [address] [place] [phone] Basophil abs 0.0 0.0 - 0.1 K/cumm CERNER BJ Comment:Testing performed by : [facility], [address] [place] [phone] Neutrophil pct 79.2 % CERNER BJ Comment: Interpretive Data Percent cell count reference ranges are not reported, since discordance with absolute values may lead to misinterpretation of CBC data. Current Interpretive Data was last revised on 2017. Testing performed by: [facility], [address] [place] [phone] Lymphocyte pct 10.5 % CERNER BJ Comment: Interpretive Data Percent cell count reference ranges are not reported, since discordance with absolute values may lead to misinterpretation of CBC data. Current Interpretive Data was last revised on 2017. Testing performed by: [facility], [address] [place] [phone] Monocyte pct 10.2 % [facility] Comment: Interpretive Data Percent cell count reference ranges are not reported, since discordance with absolute values may lead to misinterpretation of CBC data. Current Interpretive Data was last revised on 2017. Testing performed by: [facility], [address] [place] [phone] Eosinophil pct 0.0 % [facility] Comment: Interpretive Data Percent cell count reference ranges are not reported, since discordance with absolute values may lead to misinterpretation of CBC data. Current Interpretive Data was last revised on 2017. Testing performed by: [facility], [address] [place], [place] [id number] Basophil pct 0.1 % [facility] Comment: Interpretive Data Percent cell count reference ranges are not reported, since discordance with absolute values may lead to misinterpretation of CBC data. Current Interpretive Data was last revised on 2017. Testing performed by: [facility], [address] [place] [phone] Blood 08/12/2024 10:3 5 AM DEPLOYMENT ENGINEER 08/12/2024 10:50 AM DEPLOYMENT ENGINEER Adama Adkins MD LAB BLOOD ORDERABLES Final Resul t [facility] [place] [address] * (ABNORMAL) CBC with auto differential (08/12/2024 10:35 AM DEPLOYMENT ENGINEER) WBC 15.9(H) 3.8 - 9.9 K/cumm Comment:Testing performed by : [facility], [address] [place] [phone] Hgb 11.1(L) 11.9 - 15.5 g/dL [facility] Comment:Testing performed by : [facility], [address] [place] [address] Hct 32.8(L) 35.6 - 45.5 % BETHELNER BJ Comment:Testing performed by : [facility], [address] [place], [place] [phone] Plt 394 150 - 400 K/cumm CERANGELA BJ Comment:Testing performed by : [facility], [address] [place], [place] [phone] MPV 7.3 6.8 - 10.4 fL CERANGELA BJ Comment:Testing performed by : [facility], [address] [place], [place] [phone] RBC 3.35(L) 3.90 - 5.20 M/cumm CERANGELA BJ Comment:Testing performed by : [facility], [address] [place], [place] [phone] MCV 98.0(H) 81.3 - 96.4 fL CERANGELA BJ Comment:Testing performed by : [facility], [address] [place], [place] [phone] MCH 33.0 27.1 - 33.3 pg [facility] Comment:Testing performed by : [facility], [address] [place], [place] [phone] MCHC 33.7 32.3 - 35.7 g/dL CERANGELA BJ Comment:Testing performed by : [facility], [address] [place], [place] [phone] RDW CV 18.1(H) 11.1 - 14.9 % CERANGELA BJ Comment:Testing performed by : [facility], [address] [place], [place] [phone] NRBC abs 0.00 0.00 - 0.01 K/cumm CERANGELA BJ Comment:Testing performed by : [facility], [address] [place] [address] Blood 08/12/2024 10:3 5 AM DEPLOYMENT ENGINEER 08/12/2024 10:50 AM DEPLOYMENT ENGINEER us Adamakian Adkins MD LAB BLOOD ORDERABLES Final Resul t [facility] [place] [address] * (ABNORMAL) Comprehensive metabolic panel (08/12/2024 10:35 AM DEPLOYMENT ENGINEER) Sodium 141 135 - 145 mmol/L Potassium, pl 4.1 3.3 - 4.9 mmol/L [facility] Chloride 106 97 - 110 mmol/L [facility] CO2 27 22 - 32 mmol/L [facility] Anion gap 8 2 - 15 mmol/L [facility] BUN 13 6 - 25 mg/dL [facility] Creatinine 0.67 0.60 - 1.10 mg/dL [facility] Glucose 108 70 - 199 mg/dL [facility] Comment: Interpretive Data Fasting glucose >/= 126 [...] 2022. Calcium 9.5 8.5 - 10.3 mg/dL [facility] Bilirubin, total <0.2 0.1 - 1.2 mg/dL [facility] Protein, pl 7.2 6.5 - 8.5 g/dL [facility] Albumin 4.0 3.5 - 5.0 g/dL [facility] Alk phos 101 40 - 130 Units/L [facility] ALT 53(H) 7 - 45 Units/L [facility] AST 37 10 - 45 Units/L [facility] Blood 08/12/2024 10:3 5 AM DEPLOYMENT ENGINEER 08/12/2024 10:49 AM DEPLOYMENT ENGINEER us Adamakian Adkins MD LAB BLOOD ORDERABLES Final Resul t [facility] [place] [address] * eGFR (07/22/2024 11:11 AM DEPLOYMENT ENGINEER) eGFR >90 >=60 mL/min/1. 73 m2 Comment: [...] reviewed 2021. Blood 07/22/2024 11:1 1 AM DEPLOYMENT ENGINEER 07/22/2024 11:14 AM DEPLOYMENT ENGINEER us Deni RADFORD LAB BLOOD ORDERABLES Final Result [facility] [place] [address] * (ABNORMAL) Differential, auto (07/22/2024 11:11 AM DEPLOYMENT ENGINEER) Neutrophil abs 12.9(H) 1.5 - 6.5 K/cumm Comment:Testing performed by : [facility], [address] [place] [phone] Lymphocyte abs 1.0 0.8 - 3.3 K/cumm CERNER [facility]H Comment:Testing performed by : [facility], [address] [place] [phone] Monocyte abs 0.7 0.2 - 0.8 K/cumm CERNER [facility] Comment:Testing performed by : [facility], [address] [place] [phone] Eosinophil abs 0.0 0.0 - 0.5 K/cumm CERNER [facility] Comment:Testing performed by : [facility], [address] [place] [phone] Basophil abs 0.0 0.0 - 0.1 K/cumm CERNER [facility] Comment:Testing performed by : [facility], [address] [place] [phone] Neutrophil pct 88.1 % CERNER [facility] Comment: Interpretive Data Percent cell count reference ranges are not reported, since discordance with absolute values may lead to misinterpretation of CBC data. Current Interpretive Data was last revised on 2017. Testing performed by: [facility], [address] [place] [phone] Lymphocyte pct 6.7 % [facility] Comment: Interpretive Data Percent cell count reference ranges are not reported, since discordance with absolute values may lead to misinterpretation of CBC data. Current Interpretive Data was last revised on 2017. Testing performed by: [facility], [address] [place] [phone] Monocyte pct 4.9 % [facility] Comment: Interpretive Data Percent cell count reference ranges are not reported, since discordance with absolute values may lead to misinterpretation of CBC data. Current Interpretive Data was last revised on 2017. Testing performed by: [facility], [address] [place] [phone] Eosinophil pct 0.0 % [facility] Comment: Interpretive Data Percent cell count reference ranges are not reported, since discordance with absolute values may lead to misinterpretation of CBC data. Current Interpretive Data was last revised on 2017. Testing performed by: [facility], [address] [place] [phone] Basophil pct 0.3 % CERANGELA OLEA Comment: Interpretive Data Percent cell count reference ranges are not reported, since discordance with absolute values may lead to misinterpretation of CBC data. Current Interpretive Data was last revised on 2017. Testing performed by: [facility], [address] [place] [phone] Blood 07/22/2024 11:1 1 AM DEPLOYMENT ENGINEER 07/22/2024 11:12 AM DEPLOYMENT ENGINEER us Deni RADFORD LAB BLOOD ORDERABLES Final Result ALMA ROSA OLEA [facility] [place] [address] * (ABNORMAL) CBC with auto differential (07/22/2024 11:11 AM DEPLOYMENT ENGINEER) WBC 14.6(H) 3.8 - 9.9 K/cumm Comment:Testing performed by : [facility], [address] [place] [phone] Hgb 12.1 11.9 - 15.5 g/dL ALMA ROSA OLEA Comment:Testing performed by : [facility], [address] [place] [phone] Hct 35.8 35.6 - 45.5 % ALMA ROSA [facility] Comment:Testing performed by : [facility], [address] [place] [phone] Plt 413(H) 150 - 400 K/cumm CERANGELA OLEA Comment:Testing performed by : [facility], [address] [place] [phone] MPV 7.2 6.8 - 10.4 fL ALMA ROSA OLEA Comment:Testing performed by : [facility], [address] [place] [address] RBC 3.76(L) 3.90 - 5.20 M/cumm ALMA ROSA LEFTY Comment:Testing performed by : [facility], [address] [place], [place] [phone] MCV 95.3 81.3 - 96.4 fL ALMA ROSA OLEA Comment:Testing performed by : [facility], [address] [place], [place] [phone] MCH 32.3 27.1 - 33.3 pg [facility] Comment:Testing performed by : [facility], [address] [place], [place] [phone] MCHC 33.9 32.3 - 35.7 g/dL [facility] Comment:Testing performed by : [facility], [address] [place], [place] [phone] RDW CV 15.1(H) 11.1 - 14.9 % [facility] Comment:Testing performed by : [facility], [address] [place], [place] [phone] NRBC abs 0.00 0.00 - 0.01 K/cumm [facility] Comment:Testing performed by : [facility], [address] [place], [place] [phone] Blood 07/22/2024 11:1 1 AM DEPLOYMENT ENGINEER 07/22/2024 11:12 AM DEPLOYMENT ENGINEER us Deni RADFORD LAB BLOOD ORDERABLES Final Result [facility] [place] [address] * (ABNORMAL) Comprehensive metabolic panel (07/22/2024 11:11 AM DEPLOYMENT ENGINEER) Sodium 138 135 - 145 mmol/L Potassium, pl 4.0 3.3 - 4.9 mmol/L [facility] Chloride 104 97 - 110 mmol/L [facility] CO2 27 22 - 32 mmol/L [facility] Anion gap 7 2 - 15 mmol/L [facility] BUN 10 6 - 25 mg/dL [facility] Creatinine 0.64 0.60 - 1.10 mg/dL [facility] Glucose 138 70 - 199 mg/dL [facility] Comment: Interpretive Data Fasting glucose >/= 126 [...] 2022. Calcium 9.6 8.5 - 10.3 mg/dL [facility] Bilirubin, total 0.2 0.1 - 1.2 mg/dL [facility] Protein, pl 7.3 6.5 - 8.5 g/dL [facility] Albumin 4.0 3.5 - 5.0 g/dL [facility] Alk phos 100 40 - 130 Units/L [facility] ALT 60(H) 7 - 45 Units/L [facility] AST 31 10 - 45 Units/L [facility] Blood 07/22/2024 11:1 1 AM DEPLOYMENT ENGINEER 07/22/2024 11:14 AM DEPLOYMENT ENGINEER Deni RADFORD LAB BLOOD ORDERABLES Final Result [facility] [place] [address] * eGFR (07/01/2024 9:10 AM DEPLOYMENT ENGINEER) Pathologist [facility] eGFR >90 >=60 mL/min/1. 73 m2 Comment: [...] last reviewed 2021. Blood 07/01/2024 9:10 AM DEPLOYMENT ENGINEER 07/01/2024 9:30 AM DEPLOYMENT ENGINEER us Adama Adkins MD LAB BLOOD ORDERABLES Final Resul t [facility] [place] [address] * (ABNORMAL) Differential, auto (07/01/2024 9:10 AM DEPLOYMENT ENGINEER) Neutrophil abs 13.0(H) 1.5 - 6.5 K/cumm Comment:Testing performed by : [facility], [address] [place] [phone] Lymphocyte abs 1.5 0.8 - 3.3 K/cumm [facility] Comment:Testing performed by : [facility], [address] [place] [phone] Monocyte abs 1.2(H) 0.2 - 0.8 K/cumm ALMA ROSA OLEA Comment:Testing performed by : [facility], [address] [place] [phone] Eosinophil abs 0.0 0.0 - 0.5 K/cumm [facility] Comment:Testing performed by : [facility], [address] [place] [phone] Basophil abs 0.0 0.0 - 0.1 K/cumm [facility] Comment:Testing performed by : [facility], [address] [place], [place] [id number] Neutrophil pct 82.8 % [facility] Comment: Interpretive Data Percent cell count reference ranges are not reported, since discordance with absolute values may lead to misinterpretation of CBC data. Current Interpretive Data was last revised on 2017. Testing performed by: [facility], [address] [place], [place] [id number] Lymphocyte pct 9.6 % [facility] Comment: Interpretive Data Percent cell count reference ranges are not reported, since discordance with absolute values may lead to misinterpretation of CBC data. Current Interpretive Data was last revised on 2017. Testing performed by: [facility], [address] [place], [place] [id number] Monocyte pct 7.4 % [facility] Comment: Interpretive Data Percent cell count reference ranges are not reported, since discordance with absolute values may lead to misinterpretation of CBC data. Current Interpretive Data was last revised on 2017. Testing performed by: [facility], [address] [place] [address] Eosinophil pct 0.0 % [facility] Comment: Interpretive Data Percent cell count reference ranges are not reported, since discordance with absolute values may lead to misinterpretation of CBC data. Current Interpretive Data was last revised on 2017. Testing performed by: [facility], [address] [place], [place] [id number] Basophil pct 0.2 % [facility] Comment: Interpretive Data Percent cell count reference ranges are not reported, since discordance with absolute values may lead to misinterpretation of CBC data. Current Interpretive Data was last revised on 2017. Testing performed by: [facility], [address] [place] [address] Blood 07/01/2024 9:10 AM DEPLOYMENT ENGINEER 07/01/2024 9:31 AM DEPLOYMENT ENGINEER us Adama Fa'ak MD LAB BLOOD ORDERABLES Final Resul t [facility] ROS[facility] OLEA [facility] [place] [address] * (ABNORMAL) CBC with auto differential (07/01/2024 9:10 AM DEPLOYMENT ENGINEER) WBC 15.7(H) 3.8 - 9.9 K/cumm Comment:Testing performed by : [facility], [address] [place] [address] Hgb 12.6 11.9 - 15.5 g/dL CERANGELA OLEA Comment:Testing performed by : [facility], [address] [place] [address] Hct 38.5 35.6 - 45.5 % ALMA ROSA OLEA Comment:Testing performed by : [facility], [address] [place] [address] Plt 379 150 - 400 K/cumm ALMA ROSA OLEA Comment:Testing performed by : [facility], [address] [place] [address] MPV 7.8 6.8 - 10.4 fL CERANGELA [facility]J Comment:Testing performed by : [facility], [address] [place] [address] RBC 4.09 3.90 - 5.20 M/cumm CERANGELA [facility] Comment:Testing performed by : [facility], [address] [place] [address] MCV 94.1 81.3 - 96.4 fL CER[facility]ELA [facility] Comment:Testing performed by : [facility], [address] [place] [address] MCH 30.9 27.1 - 33.3 pg CERANGELA [facility] Comment:Testing performed by : [facility], [address] [place] [address] MCHC 32.8 32.3 - 35.7 g/dL CERANGELA [facility] Comment:Testing performed by : [facility], [address] [place] [address] RDW CV 13.2 11.1 - 14.9 % [facility] Comment:Testing performed by : [facility], [address] [place] [phone] NRBC abs 0.00 0.00 - 0.01 K/cumm [facility] Comment:Testing performed by : [facility], [address] [place] [phone] Blood 07/01/2024 9:10 AM DEPLOYMENT ENGINEER 07/01/2024 9:31 AM DEPLOYMENT ENGINEER us Adamakian Abad'christiano BRYANT LAB BLOOD ORDERABLES Final Resul t [facility] [place] [address] * Comprehensive metabolic panel (07/01/2024 9:10 AM DEPLOYMENT ENGINEER) Sodium 142 135 - 145 mmol/L Potassium, pl 3.9 3.3 - 4.9 mmol/L [facility] Chloride 107 97 - 110 mmol/L [facility] CO2 28 22 - 32 mmol/L [facility] Anion gap 7 2 - 15 mmol/L [facility] BUN 10 6 - 25 mg/dL [facility] Creatinine 0.78 0.60 - 1.10 mg/dL [facility] Glucose 117 70 - 199 mg/dL [facility] Comment: Interpretive Data Fasting glucose >/= 126 [...] 2022. Calcium 9.5 8.5 - 10.3 mg/dL [facility] Bilirubin, total 0.2 0.1 - 1.2 mg/dL [facility] Protein, pl 7.4 6.5 - 8.5 g/dL [facility] Albumin 3.9 3.5 - 5.0 g/dL [facility] Alk phos 84 40 - 130 Units/L [facility] ALT 27 7 - 45 Units/L [facility] AST 18 10 - 45 Units/L [facility] Blood 07/01/2024 9:10 AM DEPLOYMENT ENGINEER 07/01/2024 9:30 AM DEPLOYMENT ENGINEER us Adama Adkins MD LAB BLOOD ORDERABLES Final Resul t [facility] [place] [address] * eGFR (06/10/2024 8:33 AM DEPLOYMENT ENGINEER) eGFR 90 >=60 mL/min/1. 73 m2 Comment: [...] last reviewed 2021. Blood 06/10/2024 8:33 AM DEPLOYMENT ENGINEER 06/10/2024 8:36 AM DEPLOYMENT ENGINEER Adama Adkins MD LAB BLOOD ORDERABLES Final Resul t [facility] Department of Laboratories [place] [id number] * (ABNORMAL) Differential, auto (06/10/2024 8:33 AM DEPLOYMENT ENGINEER) Neutrophil abs 6.9(H) 1.5 - 6.5 K/cumm Comment:Testing performed by : [facility], [address] [place] [phone] Lymphocyte abs 0.8 0.8 - 3.3 K/cumm [facility] Comment:Testing performed by : [facility], [address] [place] [phone] Monocyte abs 0.2 0.2 - 0.8 K/cumm [facility] Comment:Testing performed by : [facility], [address] [place] [phone] Eosinophil abs 0.0 0.0 - 0.5 K/cumm [facility] Comment:Testing performed by : [facility], [address] [place] [phone] Basophil abs 0.0 0.0 - 0.1 K/cumm [facility] Comment:Testing performed by : [facility], [address] [place] [phone] Neutrophil pct 87.6 % [facility] Comment: Interpretive Data Percent cell count reference ranges are not reported, since discordance with absolute values may lead to misinterpretation of CBC data. Current Interpretive Data was last revised on 2017. Testing performed by: [facility], [address] [place] [phone] Lymphocyte pct 9.9 % [facility] Comment: Interpretive Data Percent cell count reference ranges are not reported, since discordance with absolute values may lead to misinterpretation of CBC data. Current Interpretive Data was last revised on 2017. Testing performed by: [facility], [address] [place] [phone] Monocyte pct 2.2 % AL[facility] ORSA DELACRUZ Comment: Interpretive Data Percent cell count reference ranges are not reported, since discordance with absolute values may lead to misinterpretation of CBC data. Current Interpretive Data was last revised on 2017. Testing performed by: [facility], [address] [place] [phone] Eosinophil pct 0.0 % AL[facility] ROSA DELACRUZ Comment: Interpretive Data Percent cell count reference ranges are not reported, since discordance with absolute values may lead to misinterpretation of CBC data. Current Interpretive Data was last revised on 2017. Testing performed by: [facility], [address] [place] [phone] Basophil pct 0.3 % ALMA ROSA OLEA Comment: Interpretive Data Percent cell count reference ranges are not reported, since discordance with absolute values may lead to misinterpretation of CBC data. Current Interpretive Data was last revised on 2017. Testing performed by: [facility], [address] [place] [phone] Blood 06/10/2024 8:33 AM DEPLOYMENT ENGINEER 06/10/2024 8:35 AM DEPLOYMENT ENGINEER us Adama Fa'ak LAB BLOOD ORDERABLES Final Resul t [facility] OLEA [facility] [place] [address] * CBC with auto differential (06/10/2024 8:33 AM DEPLOYMENT ENGINEER) WBC 7.8 3.8 - 9.9 K/cumm Comment:Testing performed by : [facility], [address] [place] [phone] Hgb 13.4 11.9 - 15.5 g/dL ALMA ROSA DELACRUZ Comment:Testing performed by : [facility], [address] [place] [phone] Hct 40.8 35.6 - 45.5 % [facility] Comment:Testing performed by : [facility], [address] [place], [place] [phone] Plt 263 150 - 400 K/cumm [facility] Comment:Testing performed by : [facility], [address] [place], [place] [phone] MPV 8.5 6.8 - 10.4 fL [facility] Comment:Testing performed by : [facility], [address] [place], [place] [phone] RBC 4.31 3.90 - 5.20 M/cumm [facility] Comment:Testing performed by : [facility], [address] [place], [place] [phone] MCV 94.6 81.3 - 96.4 fL [facility] Comment:Testing performed by : [facility], [address] [place], [place] [phone] MCH 31.1 27.1 - 33.3 pg [facility] Comment:Testing performed by : [facility], [address] [place] [address] MCHC 32.9 32.3 - 35.7 g/dL [facility] Comment:Testing performed by : [facility], [address] [place] [address] RDW CV 13.4 11.1 - 14.9 % [facility] Comment:Testing performed by : [facility], [address] [place] [address] NRBC abs 0.00 0.00 - 0.01 K/cumm [facility] Comment:Testing performed by : [facility], [address] [place] [address] Blood 06/10/2024 8:33 AM DEPLOYMENT ENGINEER 06/10/2024 8:35 AM DEPLOYMENT ENGINEER us Adamakian Adkins MD LAB BLOOD ORDERABLES Final Resul t [facility] O[facility] [place] [address] * Comprehensive metabolic panel (06/10/2024 8:33 AM DEPLOYMENT ENGINEER) Sodium 142 135 - 145 mmol/L Potassium, pl 3.9 3.3 - 4.9 mmol/L [facility] Chloride 107 97 - 110 mmol/L [facility] CO2 27 22 - 32 mmol/L [facility] Anion gap 8 2 - 15 mmol/L [facility] BUN 13 6 - 25 mg/dL [facility] Creatinine 0.80 0.60 - 1.10 mg/dL [facility] Glucose 180 70 - 199 mg/dL [facility] Comment: Interpretive Data Fasting glucose >/= 126 [...] 2022. Calcium 9.5 8.5 - 10.3 mg/dL [facility] Bilirubin, total 0.2 0.1 - 1.2 mg/dL [facility] Protein, pl 7.4 6.5 - 8.5 g/dL [facility] Albumin 3.8 3.5 - 5.0 g/dL [facility] Alk phos 73 40 - 130 Units/L [facility] ALT 26 7 - 45 Units/L [facility] AST 20 10 - 45 Units/L [facility] Blood 06/10/2024 8:33 AM DEPLOYMENT ENGINEER 06/10/2024 8:36 AM DEPLOYMENT ENGINEER us Adamakian Adkins MD LAB BLOOD ORDERABLES Final Resul t [facility] [place] [address] * XR Chest 1 View (06/08/2024 9:28 AM DEPLOYMENT ENGINEER) Anatomical Region Laterality Modality Body, Chest N/A Computed Radiogr aphy 06/08/2024 9:48 AM DEPLOYMENT ENGINEER Impressions 06/08/2024 9:48 AM DEPLOYMENT ENGINEER Right internal jugular port catheter tip at superior cavoatrial junction. Normal heart size and mediastinal contours. ??Small band like opacity in the left upper lung with no correlate on CT 06/04/2024 may represent atelectasis. ??No pleural effusion or pneumothorax. Electronically signed by: Nahum Fisher M.D. Narrative 06/08/2024 9:48 AM DEPLOYMENT ENGINEER EXAMINATION: 1 view chest radiograph COMPARISON: None [...] Fluoroscopy < 1 Hour (06/08/2024 8:40 AM DEPLOYMENT ENGINEER) Narrative [facility] - 06/08/2024 8:41 AM DEPLOYMENT ENGINEER The images from this study are not interpreted by Radiology. ??Please refer to the physician's procedure / OR operative note. Kendal Malhotra MD PhD IMG FLUOROSCOPY PROCEDURES Final Result [facility] * Peripheral IV Catheter (06/08/2024 7:54 AM DEPLOYMENT ENGINEER) Narrative Travon Soto MD - 06/08/2024 7:54 AM DEPLOYMENT ENGINEER Travon Soto MD ? 06/08/2024 ??7:55 AM [...] Final Result * Airway (06/08/2024 7:53 AM DEPLOYMENT ENGINEER) Narrative Travon Soto MD - 06/08/2024 7:53 AM DEPLOYMENT ENGINEER Travon Soto MD ? 06/08/2024 ??7:54 AM [...] Bone Imaging Whole Body (06/04/2024 2:21 PM DEPLOYMENT ENGINEER) Anatomical Region Laterality Modality N/A Nuclear Medicine 06/04/2024 4:01 PM DEPLOYMENT ENGINEER Impressions 06/04/2024 4:19 PM DEPLOYMENT ENGINEER No evidence of osseous metastatic disease. Dictated by: Henrique Mendez MD PHD The radiology attending physician has personally reviewed this study, and had reviewed and/or edited this written report and agrees with it. Electronically signed by: Sidney Hallman M.D. Narrative 06/04/2024 4:19 PM DEPLOYMENT ENGINEER EXAMINATION: ??BONE SCINTIGRAPHY (WHOLE-BODY) DATE OF STUDY: [...] Abdomen Pelvis W Contrast (06/04/2024 12:26 PM DEPLOYMENT ENGINEER) Anatomical Region Laterality Modality Body N/A Computed Tomogra phy 06/04/2024 12:3 8 PM DEPLOYMENT ENGINEER Impressions 06/04/2024 12:38 PM DEPLOYMENT ENGINEER 1. ??Known primary right breast malignancy is not well delineated on CT. ??Otherwise, no specific evidence of metastatic disease in the chest, abdomen or pelvis. Electronically signed by: Rakesh Eisenberg M.D. Narrative 06/04/2024 12:38 PM DEPLOYMENT ENGINEER EXAMINATION: CT of the chest, abdomen and [...] Re sult * eGFR (06/04/2024 11:03 AM DEPLOYMENT ENGINEER) eGFR 83 >=60 mL/min/1. 73 m2 Comment: [...] reviewed 2021. Blood 06/04/2024 11:0 3 AM DEPLOYMENT ENGINEER 06/04/2024 11:12 AM DEPLOYMENT ENGINEER us Adama Adkins MD LAB BLOOD ORDERABLES Final Resul t [facility] [place] [address] * Differential, auto (06/04/2024 11:03 AM DEPLOYMENT ENGINEER) Neutrophil abs 4.9 1.5 - 6.5 K/cumm Imm gran abs 0.0 0.0 - 0.1 K/cumm [facility] Lymphocyte abs 1.9 0.8 - 3.3 K/cumm [facility] Monocyte abs 0.7 0.2 - 0.8 K/cumm [facility] Eosinophil abs 0.2 0.0 - 0.5 K/cumm [facility] Basophil abs 0.0 0.0 - 0.1 K/cumm [facility] Neutrophil pct 63.0 % [facility] Comment: Interpretive Data Percent cell count reference ranges are not reported, since discordance with absolute values may lead to misinterpretation of CBC data. Current Interpretive Data was last revised on 2017. Imm gran pct 0.3 % [facility] Comment: Interpretive Data Percent cell count reference ranges are not reported, since discordance with absolute values may lead to misinterpretation of CBC data. Current Interpretive Data was last revised on 2017. Lymphocyte pct 23.9 % [facility] Comment: Interpretive Data Percent cell count reference ranges are not reported, since discordance with absolute values may lead to misinterpretation of CBC data. Current Interpretive Data was last revised on 2017. Monocyte pct 9.2 % [facility] Comment: Interpretive Data Percent cell count reference ranges are not reported, since discordance with absolute values may lead to misinterpretation of CBC data. Current Interpretive Data was last revised on 2017. Eosinophil pct 3.1 % [facility] Comment: Interpretive Data Percent cell count reference ranges are not reported, since discordance with absolute values may lead to misinterpretation of CBC data. Current Interpretive Data was last revised on 2017. Basophil pct 0.5 % [facility] Comment: Interpretive Data Percent cell count reference ranges are not reported, since discordance with absolute values may lead to misinterpretation of CBC data. Current Interpretive Data was last revised on 2017. Blood 06/04/2024 11:0 3 AM DEPLOYMENT ENGINEER 06/04/2024 11:11 AM DEPLOYMENT ENGINEER us Adamakian Adkins MD LAB BLOOD ORDERABLES Final Resul t [facility] [place] [address] * CBC with auto differential (06/04/2024 11:03 AM DEPLOYMENT ENGINEER) WBC 7.8 3.8 - 9.9 K/cumm Hgb 14.5 11.9 - 15.5 g/dL [facility] Hct 43.8 35.6 - 45.5 % [facility] Plt 272 150 - 400 K/cumm [facility] MPV 10.4 9.1 - 12.3 fL [facility] RBC 4.63 3.90 - 5.20 M/cumm [facility] MCV 94.6 81.3 - 96.4 fL [facility] MCH 31.3 27.1 - 33.3 pg [facility] MCHC 33.1 32.3 - 35.7 g/dL [facility] RDW CV 12.8 11.1 - 14.9 % [facility] RDW SD 43.8 35.7 - 48.1 fL [facility] NRBC abs 0.00 0.00 - 0.01 K/cumm [facility] Blood 06/04/2024 11:0 3 AM DEPLOYMENT ENGINEER 06/04/2024 11:11 AM DEPLOYMENT ENGINEER us Adama Adkins MD LAB BLOOD ORDERABLES Final Resul t [facility] [place] [address] * Comprehensive metabolic panel (06/04/2024 11:03 AM DEPLOYMENT ENGINEER) Sodium 142 135 - 145 mmol/L Potassium, pl 4.9 3.3 - 4.9 mmol/L [facility] Comment:Hemolyzed; Potassium value may be falsely elevated by as much as 0.3-0.5 mmol/L. Suggest redraw and reanalysis. Chloride 105 97 - 110 mmol/L [facility] CO2 30 22 - 32 mmol/L [facility] Anion gap 7 2 - 15 mmol/L [facility] BUN 14 6 - 25 mg/dL [facility] Creatinine 0.86 0.60 - 1.10 mg/dL [facility] Glucose 96 70 - 199 mg/dL [facility] Comment: Interpretive Data Fasting glucose >/= 126 [...] 2022. Calcium 9.7 8.5 - 10.3 mg/dL [facility] Bilirubin, total 0.4 0.1 - 1.2 mg/dL [facility] Protein, pl 7.7 6.5 - 8.5 g/dL [facility] Albumin 4.0 3.5 - 5.0 g/dL [facility] Alk phos 84 40 - 130 Units/L [facility] ALT 32 7 - 45 Units/L [facility] AST 33 10 - 45 Units/L [facility] Comment:Hemolyzed; result ma y be falsely elevated Blood 06/04/2024 11:0 3 AM DEPLOYMENT ENGINEER 06/04/2024 11:11 AM DEPLOYMENT ENGINEER Adama Adkins MD LAB BLOOD ORDERABLES Final Resul t [facility] Department [place] [address] * Screening Mammogram Bilateral W Dannie (04/22/2024 3:57 PM CDT) Anatomical Region Laterality Modality Breast Bilateral Mammography Narrative 04/23/2024 1:05 PM CDT Mammogram Technique: Bilateral Digital Breast Tomosynthesis, Bilateral C-view 2D Screening mammogram. ??Views obtained: ??bilateral craniocaudal and bilateral mediolateral oblique. ??Computer Aided Detection was performed. Mammogram Findings: The present examination has been compared to prior imaging studies performed at [facility] on 09/21/2019, 10/11/2019 and 03/07/2023. There are [...] compared to prior imaging studies performed at [facility] on 09/21/2019, 10/11/2019 and 03/07/2023. There are [...] Most Recently Relevant to Health Maintenance [facility] CHOICE [facility] HMO/PPO Address: [address] [address] [place] [address] [facility] ACCESS Care Teams Blacking Wheel Tender Relationship Specialty Start Date End Date Daljit Wiley MD PCP - General Family Medicine 08/18/18
--- OUTSIDE RECORDS SUMMARY | 2024-08-25 00:36 | XMS_ITS | Patient Health Summary ---
Author Organization [facility] vivit Address [address] [place] [address] Care Team Providers Care Brain Surgeon Name Role Phone Unavailable Primary Care Provider Unavailabl e Note from [facility],non-owned Affiliates and Associated Physician Practices is amultiple site organization consisting of ambulatory clinics and hospital sitesin [place], [place], [place] and [place]. This disclosure is being madepursuant to the Care Everywhere program and may not contain all information available regarding this patient. Last updated 18.[facility] vivit Allergies No known active allergies Medications Be [...]
--- OUTSIDE RECORDS SUMMARY | 2024-08-25 00:36 | XMS_ITS | Referral Summary ---
Author Organization [facility] Address [address] [place] [address] Care Team Providers Care Breakfast Host Name Role Phone Unavailable Primary Care Provider Unavailabl e Source Comments [facility],non-owned Affiliates and Associated Physician Practices is amultiple site organization consisting of ambulatory clinics and hospital sitesin [place], [place], [place] and [place]. This disclosure is being madepursuant to the Care Everywhere program and may not contain all information available regarding this patient. Last updated 18.[facility] Allergies No known active allergies Medications Be [...]
[2024-08-25 01:12] VITALS: RESP 18; O2SAT 97
--- NOTE | 2024-08-25 01:16 | ED_ITS ---
HPI - Fever General Chief Complaint: Fever Stated Complaint: cough, fever since last night-chemo pt Time Seen by Provider: 08/25/24 00:31 Source: patient Mode of arrival: ambulatory Limitations: no limitations History of Present Illness HPI Narrative: Patient is a 48-year-old female who presents the ED with report of cough and fever. Patient reports she developed a cough yesterday. Progressively worsened throughout the day. She then developed a fever today up to reported 105? F at home. Patient took ibuprofen prior to arrival. She does report mild diffuse achiness, congestion. Denies CP, SOB, N/V. Patient is currently undergoing chemotherapy for R breast CA. Last treatment was 12 days ago, receives chemo q21d. Oncologist is at [facility], Dr. Adkins. Related Data Home Medications ?Medication ?Instructions ?Recorded ?Confirmed ?Last Taken ?Type lactobacillus combination no.9 4 PO 06/12/21 08/06/21 Unknown History billion cell capsule (Adult 50 Plus Probiotic) Allergies Allergy/AdvReac Type Severity Reaction Status Date / Time No Known Allergies Allergy Verified 08/24/24 20:24 Review of Systems 2 Review of Systems: All systems reviewed & are unremarkable except as noted in HPI. All systems reviewed & are unremarkable except as noted in HPI and below PMFSH Past Medical History Medical History BMI 39.0-39.9,adult Abnormal weight gain Dietary counseling and surveillance (02/06/16) Hematuria, unspecified Left foot pain Mixed hyperlipidemia Short-term memory loss BMI 38.0-38.9,adult Family History Family History Mother Family history of diabetes mellitus in first degree relative Grandparent Family history of malignant neoplasm of breast Social History Social History Alcohol intake: never Exam 2 Narrative: GENERAL: Mildly flushed appearing, obese with BMI of 38.7, non-toxic, in no acute distress. HEAD: Normocephalic, atraumatic. RESPIRATORY: Airway patent, respirations nonlabored. Clear to auscultation bilaterally, no rales, rhonchi, wheezing. No significant focal lung sounds. CARDIOVASCULAR: Borderline tachycardic with regular rhythm without murmurs, rubs, or gallops. ABDOMINAL: Soft, nontender, nondistended. Normoactive BS. MUSCULOSKELETAL: Moves all extremities. No gross deformities. SKIN: Warm, dry, normal color. NEURO: A&O X3. Speech clear. Cranial nerves II-XII grossly intact. Steady gait. No ataxic movements. PSYCHIATRIC: Appropriate mood and affect. Normal interaction. Course Vital Signs Vital signs: Vital Signs Temperature 97.7 F 08/24/24 20:37 Pulse Rate 121 H 08/24/24 20:37 Respiratory Rate 18 08/24/24 20:37 Blood Pressure 126/67 08/24/24 20:37 Pulse Oximetry 95 08/24/24 20:37 Temperature 100.5 F H 08/24/24 23:15 Pulse Rate 99 08/24/24 23:15 Respiratory Rate 18 08/25/24 01:12 Blood Pressure 119/61 08/24/24 23:15 Pulse Oximetry 97 08/25/24 01:12 MDM - Fever MDM Narrative Medical decision making narrative: Patient presented to ED with fever, cough. Onset yesterday. Currently undergoing chemotherapy for breast cancer. Patient mildly tachycardic and febrile upon arrival. In no acute distress upon my evaluation. Fluids and Tylenol initiated. CBC with white blood cell count of 11.7. Mild anemia noted. No recent records to compare to. CMP is unremarkable. No significant abnormalities. UA with trace ketones, no signs of infection. Chest x-ray is clear. Influenza A is positive. Consistent with clinical picture. Given patient's immunocompromised status and recent onset of sx's, will be started on Tamiflu. Patient given fluids, Tylenol, Toradol, Tessalon Perles, 1st dose of Tamiflu in the ED. On re-evaluation, she is feeling improved. Feel she is safe for discharge home with close outpatient follow-up and strict return precautions. Discussed continued supportive therapy. Advised patient to follow closely with oncologist. Again given strict return precautions should symptoms worsen. Discharged in stable condition. Medical Records Attestation: I reviewed the patient's medical records. Lab Data Attestation: I reviewed the patient's lab results. 08/24/24 20:55 08/24/24 20:55 Labs: Lab Results 08/24/24 08/24/24 Range/Units 20:55 23:20 WBC 11.7 H (4.5-10.0) K/mm3 RBC 3.09 L (4.2-5.4) M/mm3 Hgb 10.5 L (12.0-15.0) g/dL Hct 31.5 L (37.0-47.0) % MCV 101.9 H (80-100) fl MCH 34.0 (26-34) pg MCHC 33.3 (32-36) g/dl RDW 17.2 H (11.5-14.5) % Plt Count 125 L (150-375) k/mm3 MPV 9.1 (7.4-10.4) fl Immature Gran % (Auto) 2.6 H (0-0.5) % Neut % (Auto) 81.3 H (45.5-73.1) % Lymph % (Auto) 6.1 L (18.3-44.2) % [place] % (Auto) 9.4 H (2.6-8.5) % Eos % (Auto) 0.0 (0-4.4) % Baso % (Auto) 0.6 (0.2-1.2) % Lymph # (Auto) 0.71 L (0.9-3.2) K/mm3 [place] # (Auto) 1.1 H (0.1-0.6) K/mm3 Eos # (Auto) 0.0 (0-0.3) K/mm3 Baso # (Auto) 0.1 (0.0-0.1) K/mm3 Abs Immat Gran (auto) 0.31 H (0.00-0.031) K/mm3 Absolute Neuts (auto) 9.5 H (1.3-6.7) K/mm3 Absolute Nucleated RBC 0.020 H (0.0-0.012) K/mm3 Nucleated RBC % 0.2 (0.0-0.2) % Sodium 134 L (137-145) mmol/L Potassium 3.5 (3.4-5.0) mmol/L Chloride 101 (98-107) mmol/L Carbon Dioxide 25 (22-30) mmol/L Anion Gap 8 (4-12) mmol/L BUN 8 (7-17) mg/dL Creatinine 0.74 (0.7-1.0) mg/dL Estim Creat Clear Calc 113 ml/min Estimated GFR > 60 (59 - ) Glucose 114 H (65-110) mg/dL Calcium 8.8 (8.4-10.2) mg/dL Total Bilirubin 0.5 (0.2-1.3) mg/dL AST 30 (14-36) U/L ALT 42 H (6-35) U/L Alkaline Phosphatase 109 (38-126) U/L Total Protein 7.0 (6.3-8.2) g/dL Albumin 3.6 (3.5-5.1) g/dL Urine Color Yellow (Yellow) Urine Appearance Clear (Clear) Urine pH 6.0 (5.0-9.0) Ur Specific [place] 1.022 (1.001-1.035) Urine Protein Trace (Negative) mg/dL Urine Glucose (UA) Negative (Negative) mg/dL Urine Ketones Trace H (Negative) mg/dL Ur Blood (Man) Trace (Negative) Urine Nitrate Negative (Negative) Urine Bilirubin Negative (Negative) Urine Urobilinogen 0.2 (<2.0) mg/dL Leukocyte Esterase Rfl Trace H (Negative) NORMA/UL Urine RBC 6-10 H (0-2) /hpf Urine WBC 0-5 (0-3) /hpf Ur Squamous Epith Cells Occasional (Few) /hpf Urine Bacteria None seen /hpf Urine Casts 3-5 Influenza A (RT-PCR) Positive A (Negative) Influenza B (RT-PCR) Negative (Negative) RSV (RT-PCR) Negative (Negative) SARS-CoV-2 RNA (RT-PCR) Negative (Negative) Imaging Data Attestation: I personally reviewed and interpreted this imaging study as follows: Radiologist's impression: ITS Impressions Chest X-Ray 08/24/24 21:17 IMPRESSION: No focal infiltrate or effusion. Discharge Plan Discharge Clinical Impression: Influenza A, Invasive ductal carcinoma of right breast in female Patient Disposition: Home, Self-Care Condition: Stable Instructions: Antibiotic Form, Influenza (ED), Cold Symptoms (ED) Additional Instructions: You were diagnosed with Influenza A today. Take Tamiflu as prescribed. Isolate at home as you are contagious. Get plenty of rest. Stay well-hydrated at home. Recommend electrolyte rich fluids, Gatorade, Pedialyte, body armor. Zofran as needed for nausea. Tessalon Perles as needed for cough. Recommend Tylenol and Ibuprofen around the clock as needed for discomfort and/or fevers. Recommend [id number] cough and cold medicines for symptom relief, Delsym, Mucinex, DayQuil, NyQuil, Sudafed, Robitussin, TheraFlu. Follow-up closely with your oncologist and primary care doctor for further evaluation. Notify oncology team of influenza diagnosis. Return to the ED if you experience chest pain, difficulty breathing, unable to keep down food or drink, severe pain, unable to control fevers, or any other symptoms of concern. Patient Language: Greek Prescriptions: New benzonatate 200 mg capsule 200 mg PO TID PRN (Reason: cough) Qty: 15 0RF oseltamivir [Tamiflu] 75 mg capsule 75 mg PO Q12H 5 Days Qty: 10 0RF ondansetron 4 mg tablet,disintegrating 4 mg PO Q8H PRN (Reason: nausea and vomiting) Qty: 15 0RF No Action azithromycin [Zithromax] 250 mg tablet See Rx Instructions PO .COMPLEX Qty: 6 0RF Rx Instructions: take 500 mg today (day 1), then 250 mg for 4 days (days 2-5) PO albuterol sulfate [ProAir HFA] 90 mcg/actuation HFA aerosol inhaler 1 inh inhalation Q4H PRN (Reason: shortness of breath or wheezing) Qty: 6.7 3RF benzonatate 100 mg capsule 100 mg PO TID PRN (Reason: cough) Qty: 30 0RF Adult 50 Plus Probiotic 4 billion cell capsule PO citalopram 20 mg tablet See Rx Instructions .ROUTE .COMPLEX Qty: 30 3RF Dose Instruction: TAKE 1 TABLET BY MOUTH EVERY DAY Rx Instructions: TAKE 1 TABLET BY MOUTH EVERY DAY Follow-up/Referrals: Daljit Wiley MD [Primary Care Provider] - Time of Disposition: 02:34
[2024-08-25] MEDS: KETOROLAC 30 MG/ML VIAL (*BKC) IV PUSH (02:21)
[2024-08-25] MEDS: SODIUM CHLORIDE 0.9% IV 1,000 ML 999 ML IV CONT (02:21)
[2024-08-25] MEDS: BENZONATATE 100 MG CAPSULE 200 MG PO (02:22)
[2024-08-25] MEDS: ACETAMINOPHEN 500 MG TABLET 1000 MG PO (02:23)
[2024-08-25] MEDS: OSELTAMIVIR PHOSPHATE 75 MG CAPSULE PO (02:23)
[2024-08-25 03:34] VITALS: BP 122/86; PULSE 87; RESP 18; O2SAT 96
== END 2024-08-25 03:35 | disposition home or self-care (01) ==
PROVIDERS: Preventive Medicine Aerospace Medicine; Emergency Provider Physician Assistant; PCP Family Medicine
DX: J10.1 Influenza due to other identified influenza virus with other respiratory manifestations (principal); C50.911 Malignant neoplasm of unspecified site of right female breast; Z20.822 Contact with and (suspected) exposure to COVID-19; E78.5 Hyperlipidemia, unspecified
CPT/HCPCS: 36415; 71046; 80053; 81001; 85025; 87637; 96361; 96374; 99284; A9270; J1885; J7030